=== PATIENT | female | born 1950 | race Caucasian/White ===

== ENCOUNTER 2020-04-12 19:14 | Emergency (ER) | payer MEDICARE, SELFPAY ==
[2020-04-12 19:20] VITALS: BP 254/100; PULSE 87; RESP 18; TEMP 36.2; O2SAT 100
--- NOTE | 2020-04-12 19:25 | ECG_ITS ---
Measurements Intervals [place] Rate: 71 P: 5 LA: 188 QRS: 5 QRSD: 85 T: 9 QT: 408 QTc: 445 Interpretive Statements SINUS RHYTHM LEFT VENTRICULAR HYPERTROPHY AND ST-T CHANGE BASELINE ARTIFACT- I, III, AVR, AVF, V1 BORDERLINE ECG Electronically Signed On 04-12-2020 21:00:50 LEADER WRITER by Trey Witt D.O.
[2020-04-12 19:35] LABS: Basophils Absolute Auto 0.1 K/mm3 (0.0-0.1); Basophils Percent Auto 1.4 % (0.2-1.2); Eosinophils Absolute Auto 0.5 K/mm3 (0-0.3); Eosinophils Percent Auto 4.5 % (0-4.4); Hematocrit 41.1 % (37.0-47.0); Hemoglobin 14.4 g/dL (12.0-15.0); Immature Granulocyte Absolute 0.03 K/mm3 (0.00-0.031); Immature Granulocyte Percent A 0.3 % (0-0.5); Lymphocytes Absolute Auto 2.72 K/mm3 (0.9-3.2); Lymphocytes Percent Auto 26.4 % (18.3-44.2); Mean Corpuscular Hemoglobin 29.7 pg (26-34); Mean Corpuscular Volume 84.7 fl (80-100); Monocytes Absolute Auto 0.8 K/mm3 (0.1-0.6); Monocytes Percent Auto 7.6 % (2.6-8.5); Neutrophils Absolute Auto 6.2 K/mm3 (1.3-6.7); Neutrophils Percent Auto 59.8 % (45.5-73.1); Platelet Count Result 371 k/mm3 (150-375); Red Blood Count 4.85 M/mm3 (4.2-5.4); Red Cell Distribution Width 12.7 % (11.5-14.5); White Blood Count 10.3 K/mm3 (4.5-10.0)
[2020-04-12 19:45] LABS: Alanine Aminotransferase 12 U/L (4-35); Albumin Level 4.5 g/dL (3.5-5.1); Alkaline Phosphatase 97 U/L (38-126); Anion Gap 6 mmol/L (8-16); Aspartate Amino Transferase 27 U/L (14-36); Bilirubin,Total 0.5 mg/dL (0.2-1.3); Blood Urea Nitrogen 8 mg/dL (7-17); Calcium 9.7 mg/dL (8.4-10.2); Carbon Dioxide 32 mmol/L (22-30); Chloride 97 mmol/L (98-107); Estimated CRCL calculation 45 ml/min; Estimated Glomerular Filt Rate > 60; Glucose 121 mg/dL (65-105); Potassium 3.6 mmol/L (3.4-5.0); Sodium 135 mmol/L (137-145)
[2020-04-12 20:26] VITALS: BP 240/105; PULSE 72; RESP 16; O2SAT 100
[2020-04-12] MEDS: SODIUM CHLORIDE 0.9% IV 1,000 ML 999 ML IV CONT (20:49)
[2020-04-12] MEDS: LORazepam INJ (*CRX) 2 MG/ML VIAL 1 MG IV PUSH (20:50)
[2020-04-12] MEDS: diphenhydrAMINE HCl INJ 50 MG/ML VIAL IV PUSH (20:50)
[2020-04-12 20:51] VITALS: BP 222/97; PULSE 81; RESP 22; O2SAT 99
[2020-04-12] MEDS: PROCHLORPERAZINE EDISYLATE 10 MG/2 ML VIAL IV PUSH (20:51)
--- NOTE | 2020-04-12 21:23 | ED.GENADULT ---
HPI - General Adult General Chief complaint: Headache Stated complaint: headaches with high blood pressure Time Seen by Provider: 04/12/20 20:23 History of Present Illness HPI narrative: Patient is a 69-year-old female who presents the emergency department with chief complaint of headache. Patient reports she has history of migraines and usually gets hypertension afterwards. Patient states that she started developing headache this morning and then is noticed that her blood pressures been high and the patient reports having nausea and vomiting with this as well. The patient also reports has been more anxious than normal coping with the fact that her mother has recently . Review of Systems Review of Systems: Narrative: A 10 system review of systems was completed on the patient and is negative except for what is stated in the HPI. Nursing and ancillary documentation was reviewed. PMFSH Social History Social History Gender identity (if verbalized by the patient): Female Comments Past medical history significant for migraines and hypertension Social history patient denies illicit drug use Exam Narrative: Exam Narrative: GENERAL: Well-appearing, well-nourished, and in no acute distress. HEAD: Normocephalic, atraumatic. EYES: PERRLA and EOMI. ENT: Nares clear, no rhinorrhea or epistaxis. Mucous membranes moist. NECK: Supple. CHEST: Clear to auscultation. No respiratory distress. HEART: Regular rate and rhythm. No murmur heard. Normal peripheral pulses. ABDOMEN: Soft, nontender, nondistended, normal active bowel sounds. EXTREMITIES: Normal range of motion. No edema. SKIN: Warm, dry, no rash. NEURO: No focal deficits. Alert and oriented x3. PSYCH: Normal mood and affect. Course Vital Signs Vital signs: Vital Signs Temperature 36.2 C L 04/12/20 19:20 Pulse Rate 87 04/12/20 19:20 Respiratory Rate 18 04/12/20 19:20 Blood Pressure 254/100 H 04/12/20 19:20 Pulse Oximetry 100 04/12/20 19:20 Temperature 36.2 C L 04/12/20 19:20 Pulse Rate 68 04/12/20 22:39 Respiratory Rate 16 04/12/20 22:39 Blood Pressure 116/57 L 04/12/20 22:39 Pulse Oximetry 98 04/12/20 22:39 Medical Decision Making Vital Signs Vital Signs: Vital Signs Temperature 36.2 C L 04/12/20 19:20 Pulse Rate 87 02/12/21 19:20 Respiratory Rate 18 04/12/20 19:20 Blood Pressure 254/100 H 04/12/20 19:20 Pulse Oximetry 100 04/12/20 19:20 Temperature 36.2 C L 04/12/20 19:20 Pulse Rate 68 04/12/20 22:39 Respiratory Rate 16 04/12/20 22:39 Blood Pressure 116/57 L 04/12/20 22:39 Pulse Oximetry 98 04/12/20 22:39 Lab Data Result diagrams: 04/12/20 19:27 04/12/20 19:27 Labs: Lab Results 04/12/20 04/12/20 Range/Units 19:27 19:27 WBC 10.3 H (4.5-10.0) K/mm3 RBC 4.85 (4.2-5.4) M/mm3 Hgb 14.4 (12.0-15.0) g/dL Hct 41.1 (37.0-47.0) % MCV 84.7 (80-100) fl MCH 29.7 (26-34) pg MCHC 35.0 (32-36) g/dl RDW 12.7 (11.5-14.5) % Plt Count 371 (150-375) k/mm3 MPV 9.0 (7.4-10.4) fl Immature Gran % (Auto) 0.3 (0-0.5) % Neut % (Auto) 59.8 (45.5-73.1) % Lymph % (Auto) 26.4 (18.3-44.2) % [place] % (Auto) 7.6 (2.6-8.5) % Eos % (Auto) 4.5 H (0-4.4) % Baso % (Auto) 1.4 H (0.2-1.2) % Lymph # (Auto) 2.72 (0.9-3.2) K/mm3 [place] # (Auto) 0.8 H (0.1-0.6) K/mm3 Eos # (Auto) 0.5 H (0-0.3) K/mm3 Baso # (Auto) 0.1 (0.0-0.1) K/mm3 Abs Immat Gran (auto) 0.03 (0.00-0.031) K/mm3 Absolute Neuts (auto) 6.2 (1.3-6.7) K/mm3 Absolute Nucleated RBC 0.0 (0.0-0.012) K/mm3 Nucleated RBC % 0.0 (0.0-0.2) % Sodium 135 L (137-145) mmol/L Potassium 3.6 (3.4-5.0) mmol/L Chloride 97 L (98-107) mmol/L Carbon Dioxide 32 H (22-30) mmol/L Anion Gap 6 L (8-16) mmol/L BUN 8 (7-17) mg/dL Creatinine 0.80 (0.7-1.0) mg/dL Estim Creat Clear Calc 45 ml/min Estimated GFR > 60 (59 - ) Glucos
[2020-04-12 21:57] VITALS: BP 120/73; PULSE 74; RESP 18; O2SAT 98
[2020-04-12] MEDS: KETOROLAC 15 MG/ML VIAL (*BKC) IV PUSH (22:23)
[2020-04-12 22:39] VITALS: BP 116/57; PULSE 68; RESP 16; O2SAT 98
== END 2020-04-12 23:11 | disposition home or self-care (01) ==
PROVIDERS: Emergency Medicine; Emergency Provider Emergency Medicine; PCP Family Medicine
DX: G43.909 Migraine, unspecified, not intractable, without status migrainosus (principal); I10 Essential (primary) hypertension; I51.7 Cardiomegaly
CPT/HCPCS: 36415; 80053; 85025; 93005; 96361; 96374; 96375; 99284; J0780; J1200; J1885; J2060; J7030

== ENCOUNTER 2023-02-09 11:30 | Emergency (ER) | payer MEDICARE, SELFPAY ==
--- NOTE | ~2023-02-09 | XR_ITS ---
EXAMINATION: XR chest 2V DATE: 02/09/2023 11:47 INDICATION: Left-sided chest pain TECHNIQUE: PA and lateral views of the chest are obtained. COMPARISON: None available FINDINGS: The lungs are free of acute opacities. No pleural effusion or pneumothorax. The cardiomedia stinal silhouette is normal. There is mild thoracic spondylosis. Surgical clips in the right upper qu adrant are likely from prior cholecystectomy. IMPRESSION: 1. No acute cardiopulmonary abnormality. Reviewed, dictated and finalized at location L. ENT ACCOUNT LIAISON
--- NOTE | 2023-02-09 11:31 | ECG_ITS ---
Measurements Intervals [place] Rate: 73 P: 47 DC: 169 QRS: 37 QRSD: 76 T: 22 QT: 374 QTc: 413 Interpretive Statements SINUS RHYTHM NONSPECIFIC ST ABNORMALITY ABNORMAL ECG COMPARED TO ECG 04/12/2020 20:42:32 NO SIGNIFICANT CHANGES Electronically Signed On 02-10-2023 10:27:18 GRINDER HAND by Elvis Sanchez M.D.
[2023-02-09 11:36] VITALS: BP 226/100; PULSE 76; RESP 16; TEMP 36.3; O2SAT 100
[2023-02-09 12:02] LABS: Basophils Absolute Auto 0.1 K/mm3 (0.0-0.1); Basophils Percent Auto 1.7 % (0.2-1.2); Eosinophils Absolute Auto 0.2 K/mm3 (0-0.3); Eosinophils Percent Auto 2.6 % (0-4.4); Hematocrit 40.8 % (37.0-47.0); Hemoglobin 13.9 g/dL (12.0-15.0); Immature Granulocyte Absolute 0.01 K/mm3 (0.00-0.031); Immature Granulocyte Percent A 0.1 % (0-0.5); Lymphocytes Absolute Auto 1.33 K/mm3 (0.9-3.2); Lymphocytes Percent Auto 19.4 % (18.3-44.2); Mean Corpuscular HGB Conc 34.1 g/dl (32-36); Mean Corpuscular Hemoglobin 29.8 pg (26-34); Mean Corpuscular Volume 87.4 fl (80-100); Monocytes Absolute Auto 0.6 K/mm3 (0.1-0.6); Monocytes Percent Auto 8.2 % (2.6-8.5); Neutrophils Absolute Auto 4.7 K/mm3 (1.3-6.7); Platelet Count Result 341 k/mm3 (150-375); Red Blood Count 4.67 M/mm3 (4.2-5.4); Red Cell Distribution Width 13.1 % (11.5-14.5); White Blood Count 6.9 K/mm3 (4.5-10.0)
[2023-02-09 12:11] LABS: Alanine Aminotransferase 43 U/L (6-35); Albumin Level 4.5 g/dL (3.5-5.1); Alkaline Phosphatase 101 U/L (38-126); Anion Gap 5 mmol/L (8-16); Aspartate Amino Transferase 51 U/L (14-36); Bilirubin,Total 0.8 mg/dL (0.2-1.3); Blood Urea Nitrogen 6 mg/dL (7-17); Calcium 9.3 mg/dL (8.4-10.2); Carbon Dioxide 32 mmol/L (22-30); Chloride 99 mmol/L (98-107); Estimated CRCL calculation 39 ml/min; Estimated Glomerular Filt Rate > 60; Glucose 109 mg/dL (65-110); Lipase 63 U/L (23-300); Potassium 4.2 mmol/L (3.4-5.0); Sodium 136 mmol/L (137-145)
[2023-02-09 12:12] LABS: Partial Thromboplastin Time 31.8 SECONDS (22.3-36.8); Prothrombin Time 13.4 Seconds (11.1-14.7)
[2023-02-09 12:22] LABS: Troponin I < 0.012 ng/mL (0.000-0.034)
--- NOTE | 2023-02-09 14:04 | ED.CHESTPAIN ---
HPI - Chest Pain General Chief Complaint: Chest Pain <GALLITO Wheat Last Filed: 02/09/23 17:19> Stated Complaint: left arm pain <GALLITO Wheat Last Filed: 02/09/23 17:19> Time Seen by Provider: 02/09/23 15:45 <GALLITO Wheat Last Filed: 02/09/23 17:19> Source: patient <GALLITO Wheat Last Filed: 02/09/23 17:19> Mode of arrival: ambulatory <GALLITO Wheat Last Filed: 02/09/23 17:19> Limitations: no limitations <GALLITO Wheat Last Filed: 02/09/23 17:19> History of Present Illness HPI narrative: This is a 72 year old female that presents to the ER for an episode of chest pain last night. Reports a substernal chest pain that was burning in nature. This resolved without intervention. Reports she has trouble with her anxiety and would like her doctor to increase her Clonazepam dose because that is what seems to help her the most. Reports her blood pressure was elevated this morning which she believes is due to her anxiety. Recently had a stent placed. She sees cardiology with [facility]. Denies shortness of breath or lower extremity edema. <Nathaly Chamorro PA-C - Last Filed: 02/09/23 17:19> Related Data Home Medications: Home Medications Medication Instructions Recorded Confirmed atenolol 100 mg tablet 100 mg PO DAILY 09/16/21 09/16/21 cholecalciferol (vitamin D3) 25 25 mcg PO DAILY 09/16/21 09/16/21 mcg (1,000 unit) capsule clonazepam 0.25 mg disintegrating 0.25 mg PO DAILY 09/16/21 09/16/21 tablet lansoprazole 30 mg capsule,delayed 30 mg PO DAILY 09/16/21 09/16/21 release (Prevacid) <GALLITO Wheat Last Filed: 02/09/23 17:19> Allergies/Adverse Reactions: Allergies Allergy/AdvReac Type Severity Reaction Status Date / Time No Known Allergies Allergy Verified 02/09/23 13:45 <Nathaly Chamorro PA-C - Last Filed: 02/09/23 17:19> Review of Systems Review of Systems: CONSTITUTIONAL: Denies fever CARDIOVASCULAR: Reports chest pain, palpitations. Denies edema. RESPIRATORY: Denies dyspnea. PSYCHIATRIC: Reports anxiety <Nathaly Chamorro PA-C - Last Filed: 02/09/23 17:19> All systems reviewed & are unremarkable except as noted in HPI and below <Nathaly Chamorro PA-C - Last Filed: 02/09/23 17:19> [facility] Past Medical History Medical History: Medical History (Updated 02/10/23 @ 00:00 by Barber Schwartz) History of anxiety History of hyperlipidemia History of hypertension <GALLITO Wheat Last Filed: 02/09/23 17:19> Family History Family History: Family History (Updated 02/02/23 @ 11:07 by Morenita Rogers RN) Sibling Alcoholism Cancer Hypertension Mother Depression Father Heart disease High cholesterol Grandparent Cerebrovascular accident <Nathaly Chamorro PA-C - Last Filed: 02/09/23 17:19> Social History Social History: Social History Smoking packs per day: 1.5 Smoking cigarettes per day: 30.0 Years smoked: 20 Smoking pack-years: 30.00 Smoking status: Former smoker Alcohol intake: never Substance use: never Gender identity (if verbalized by the patient): Female <Nathaly Chamorro PA-C - Last Filed: 02/09/23 17:19> Exam Narrative: GENERAL: Well-appearing, well-nourished, anxious HEAD: Normocephalic, atraumatic. EYES: EOMI. CHEST: Clear to auscultation. No respiratory distress. No wheezes rales or rhonchi HEART: Regular rate and rhythm. No murmur heard. Normal peripheral pulses. EXTREMITIES: Normal range of motion. No edema. SKIN: Warm, dry, no rash. NEURO: No focal deficits. Alert and oriented x3. PSYCH: Anxious <GALLITO Wheat Last Filed: 02/09/23 17:19> Course Vital Signs Vital signs: Vital Signs Temperature 97.3 F L 02/09/23 11:36 Pulse Rate 76 02/09/23 11:36 Respiratory Rate 16 02/09/23 11:36 Blood Pressu
[2023-02-09 14:07] VITALS: BP 224/117; PULSE 69; RESP 20; O2SAT 98
--- NOTE | 2023-02-09 14:08 | PC.NURSE ---
provider aware of elevated BP
--- NOTE | 2023-02-09 14:36 | ECG_ITS ---
Measurements Intervals [place] Rate: 67 P: 76 CA: 171 QRS: 65 QRSD: 77 T: 65 QT: 394 QTc: 417 Interpretive Statements SINUS RHYTHM MINIMAL VOLTAGE CRITERIA FOR LVH, CONSIDER NORMAL VARIANT [MEETS CRITERIA IN ONE OF: R(aVL), S(V1), R(V5), R(V5/V6)+S(V1)] MINIMAL ST DEPRESSION [0.025+ mV ST DEPRESSION] ABNORMAL ECG COMPARED TO ECG 02/09/2023 11:42:37 NO SIGNIFICANT CHANGES Electronically Signed On 02-10-2023 10:32:25 CONTROLLER OPERATIONS AND HR MANAGER by Elvis Sanchez M.D.
[2023-02-09 15:27] LABS: Troponin I < 0.012 ng/mL (0.000-0.034)
[2023-02-09 15:42] VITALS: BP 230/105; PULSE 65; RESP 17; O2SAT 100
[2023-02-09 15:50] VITALS: BP 210/90; PULSE 66; RESP 14; O2SAT 100
[2023-02-09 16:21] VITALS: BP 172/83; PULSE 60; RESP 20; O2SAT 100
[2023-02-09 16:52] VITALS: BP 174/73; PULSE 60; RESP 14; O2SAT 100
== END 2023-02-09 16:59 | disposition home or self-care (01) ==
PROVIDERS: Emergency Medicine; Emergency Provider Emergency Medicine
DX: R07.89 Other chest pain (principal); F41.9 Anxiety disorder, unspecified; I10 Essential (primary) hypertension; E78.5 Hyperlipidemia, unspecified
CPT/HCPCS: 36415; 71046; 80053; 83690; 84484; 85025; 85610; 85730; 93005; 99284

== ENCOUNTER 2023-02-25 13:30 | Outpatient (RCR) | payer MEDICARE, SELFPAY ==
[2023-02-02 11:49] VITALS: PULSE 66
== END 2023-04-16 09:06 | disposition home or self-care (01) ==
LOC: ANHCPREHAB 13:30
PROVIDERS: PCP Family Medicine; Visit Provider Specialist
DX: Z95.5 Presence of coronary angioplasty implant and graft (principal)
CPT/HCPCS: 93798; J2704

== ENCOUNTER 2023-04-12 06:39 | Outpatient (CLI) | payer OTHER, SELFPAY ==
[2023-04-12 08:11] LABS: Alanine Aminotransferase 59 U/L (6-35); Albumin Level 4.1 g/dL (3.5-5.1); Alkaline Phosphatase 91 U/L (38-126); Aspartate Amino Transferase 59 U/L (14-36); Bilirubin,Total 1.2 mg/dL (0.2-1.3); Cholesterol 146 mg/dL (0-200); HDL Direct 60 mg/dL; Triglycerides 86 mg/dL (<150)
[2023-04-12 08:22] LABS: LDL Cholesterol Direct 71 mg/dL
== END 2023-04-12 06:40 | disposition home or self-care (01) ==
PROVIDERS: PCP Student in an Organized Health Care Education/Training Program; Visit Provider Specialist
DX: E78.2 Mixed hyperlipidemia (principal)
CPT/HCPCS: 36415; 80061; 80076

== ENCOUNTER 2023-04-29 06:34 | Outpatient (CLI) | payer OTHER, SELFPAY ==
[2023-04-29 07:34] LABS: Alanine Aminotransferase 38 U/L (6-35); Albumin Level 4.3 g/dL (3.5-5.1); Alkaline Phosphatase 87 U/L (38-126); Aspartate Amino Transferase 46 U/L (14-36); Bilirubin,Total 1.1 mg/dL (0.2-1.3)
== END 2023-04-29 06:35 | disposition home or self-care (01) ==
PROVIDERS: PCP Clinical Nurse Specialist
DX: R74.8 Abnormal levels of other serum enzymes (principal)
CPT/HCPCS: 36415; 80076

== ENCOUNTER 2023-07-20 17:02 | Emergency (ER) | payer OTHER, SELFPAY ==
[2023-07-20] VITALS (9 sets, daily range): BP systolic 79–144; BP diastolic 43–66; PULSE 46–81; RESP 16–27; TEMP 36.4; O2SAT 98–100
--- NOTE | ~2023-07-20 | XR_ITS ---
EXAMINATION: XR chest 1V portable DATE: 07/20/2023 22:35 INDICATION: Syncope with weakness and wheezing post tooth removal TECHNIQUE: frontal view of the chest was obtained. COMPARISON: Chest radiograph dated 02/09/2023 FINDINGS: The lungs remain clear with no focal airspace opacities, pulmonary edema, pleural effusion or pneumot horax. The cardiomediastinal silhouette is normal. Likely cholecystectomy clips in right upper quadra nt. Mild thoracic spondylosis. Peripheral IV at the left antecubital fossa. IMPRESSION: 1. No acute cardiopulmonary disease. Reviewed, dictated and finalized at location A.
[2023-07-20 19:46] LABS: Basophils Absolute Auto 0.1 K/mm3 (0.0-0.1); Basophils Percent Auto 0.8 % (0.2-1.2); Eosinophils Percent Auto 0.1 % (0-4.4); Hematocrit 36.3 % (37.0-47.0); Hemoglobin 12.6 g/dL (12.0-15.0); Immature Granulocyte Absolute 0.05 K/mm3 (0.00-0.031); Immature Granulocyte Percent A 0.3 % (0-0.5); Lymphocytes Absolute Auto 0.92 K/mm3 (0.9-3.2); Lymphocytes Percent Auto 6.4 % (18.3-44.2); Mean Corpuscular HGB Conc 34.7 g/dl (32-36); Mean Corpuscular Hemoglobin 29.9 pg (26-34); Mean Corpuscular Volume 86.2 fl (80-100); Mean Platelet Volume 9.1 fl (7.4-10.4); Monocytes Absolute Auto 0.6 K/mm3 (0.1-0.6); Monocytes Percent Auto 3.8 % (2.6-8.5); Neutrophils Absolute Auto 12.8 K/mm3 (1.3-6.7); Neutrophils Percent Auto 88.6 % (45.5-73.1); Platelet Count Result 334 k/mm3 (150-375); Red Blood Count 4.21 M/mm3 (4.2-5.4); Red Cell Distribution Width 12.9 % (11.5-14.5); White Blood Count 14.4 K/mm3 (4.5-10.0)
[2023-07-20 19:55] LABS: Alanine Aminotransferase 17 U/L (6-35); Albumin Level 4.6 g/dL (3.5-5.1); Alkaline Phosphatase 87 U/L (38-126); Anion Gap 8 mmol/L (4-12); Aspartate Amino Transferase 32 U/L (14-36); Blood Urea Nitrogen 12 mg/dL (7-17); Calcium 9.3 mg/dL (8.4-10.2); Carbon Dioxide 26 mmol/L (22-30); Chloride 97 mmol/L (98-107); Estimated CRCL calculation 35 ml/min; Estimated Glomerular Filt Rate > 60; Glucose 122 mg/dL (65-110); Potassium 4.1 mmol/L (3.4-5.0); Sodium 131 mmol/L (137-145)
[2023-07-20 19:59] LABS: INR 1.1; Prothrombin Time 14.4 Seconds (11.1-14.7)
[2023-07-20 20:00] LABS: Partial Thromboplastin Time 29.1 Seconds (22.3-36.8)
--- NOTE | 2023-07-20 21:27 | PC.NURSE ---
Addendum entered by Damaris Garcia RN 07/20/23 22:25: Once found, this RN performed sternal rub with no response. Checked for pulse, none felt by this RN. Attempted to start CPR and pt arousable after first compression. Original Note: This RN alerted by pt family of assistance needed. Pt found supine in bathroom, eyes open, with snoring respirations, and loss of bladder. EDP Zych in triage at the time, notified, and taken to room 22.
--- NOTE | 2023-07-20 21:29 | ECG_ITS ---
SEE SCANNED COPY FOR CONFIRMED REPORT MTDD
[2023-07-20] MEDS: SODIUM CHLORIDE 0.9% IV 1,000 ML 999 ML IV CONT ×2 (21:50→23:02)
[2023-07-20 21:51] LABS: Magnesium 1.8 mg/dL (1.6-2.3)
[2023-07-20] MEDS: CELLULOSE OXIDIZED 2 x 14 INCH 1 PKT XX (21:59)
[2023-07-20 22:02] LABS: Troponin I < 0.012 ng/mL (0.000-0.034)
[2023-07-20] MEDS: ONDANSETRON INJ 4 MG/2 ML VIAL IV PUSH (22:48)
--- NOTE | 2023-07-20 22:56 | ED.GENADULT ---
HPI - General Adult General Chief complaint: Weakness Stated complaint: weakness Time Seen by Provider: 07/20/23 21:32 History of Present Illness HPI narrative: Patient is a 72-year-old female who presents to the emergency department this evening complaining of a bleeding tooth socket. Patient states that this morning she had 2 of her teeth extracted. Patient states that since she has not been able to control the bleeding. She has called the dentist office 5 times and they kept on telling her that she is and that the bleeding will eventually stop. Patient finally decided to come to the emergency department as she could not control the bleeding at home. She is on aspirin and Plavix. While the patient was waiting in the emergency department, she did have a syncopal episode in the bathroom. Patient's son is with her and states that she has not had anything to eat or drink all day dealing with her bleeding gums. Patient is denying any chest pain but admits to having nausea stating that she swallowed some blood which is making her stomach upset. She is currently denying any additional symptoms or concerns at this time. Related Data Home Medications Medication Instructions Recorded Confirmed atenolol 100 mg tablet 100 mg PO DAILY 09/16/21 06/18/23 cholecalciferol (vitamin D3) 25 25 mcg PO DAILY 09/16/21 06/18/23 mcg (1,000 unit) capsule aspirin 81 mg tablet,delayed 81 mg PO DAILY 04/20/23 06/18/23 release (Adult Aspirin Regimen) atorvastatin 20 mg tablet (Lipitor) 20 mg PO DAILY 04/20/23 06/18/23 clonazepam 0.25 mg disintegrating 0.5 mg PO DAILY 04/20/23 06/18/23 tablet clopidogrel 75 mg tablet (Plavix) 75 mg PO DAILY 04/20/23 06/18/23 mecobalamin (vitamin B12) 500 mcg mcg PO 04/20/23 06/18/23 chewable tablet Allergies Allergy/AdvReac Type Severity Reaction Status Date / Time clindamycin Allergy Unknown Verified 06/18/23 11:00 clonidine Allergy Unknown Verified 06/18/23 11:00 midazolam [From Versed] Allergy Unknown Verified 06/18/23 11:00 Review of Systems Review of Systems: All systems are reviewed and are negative unless stated otherwise in the HPI. [facility] Past Medical History Medical History History of hyperlipidemia History of hypertension Surgical History Surgical History History of anxiety Hx of cholecystectomy Presence of stent in left circumflex coronary artery Family History Family History Sibling Alcoholism Cancer Hypertension Mother Depression Father Heart disease High cholesterol Grandparent Cerebrovascular accident Social History Social History Social History: caffeine - 1 cup tea daily Smoking packs per day: 1.5 Smoking cigarettes per day: 30.0 Years smoked: 20 Smoking pack-years: 30.00 Smoking status: Former smoker Smoking end date: 03/01/97 Alcohol intake: never Substance use: never Do You Feel Safe in your Home?: Yes Lack of Transportation: No Lack of Food: Sometimes True Current Housing: I Have Housing Concerned About Future Housing: Decline to Answer Difficulty Paying Gas/Electric Bills: YES Difficulty Paying for Meds: No Currently Unemployed: No Education: Associate Degree Difficulty w/ Childcare or Family Care: No Living arrangements: alone Occupation/Education: retired Gender identity (if verbalized by the patient): Female Spiritual care concerns: No Agree to blood products: Yes Exam Narrative: General: Alert, awake, afebrile, pale. HEENT: PERRL, no rhinorrhea, no post nasal drip, oropharynx clear, right upper molar brisk bleeding, . Cardiovascular: Regular rate and rhythm, no murmurs, rubs or gallops, no peripheral edema. Respiratory: Clear to auscultation bilaterally, no tachypnea, no
--- NOTE | 2023-07-20 23:01 | PC.NURSE ---
EDP DR ASHLEY STARK 1000ML IV BOLUS FOR LOW PRESSURES.
[2023-07-21] VITALS: BP 101/49; PULSE 73; RESP 17; O2SAT 100
[2023-07-21] MEDS: SODIUM CHLORIDE 0.9% IV 1,000 ML 100 ML IV CONT (00:13)
--- NOTE | 2023-07-21 00:13 | ECG_ITS ---
SEE SCANNED COPY FOR CONFIRMED REPORT MTDD
[2023-07-21 00:15] VITALS: BP 129/53; PULSE 79; RESP 21; O2SAT 98
[2023-07-21 00:30] VITALS: BP 108/54; PULSE 77; RESP 14; O2SAT 95
[2023-07-21 01:15] VITALS: BP 126/58; PULSE 79; RESP 23; O2SAT 97
[2023-07-21 01:34] VITALS: BP 126/58; PULSE 80; RESP 15; O2SAT 97
== END 2023-07-21 01:36 | disposition home or self-care (01) ==
PROVIDERS: Emergency Provider Emergency Medicine; PCP Clinical Nurse Specialist
DX: R55 Syncope and collapse (principal); K91.840 Postprocedural hemorrhage of a digestive system organ or structure following a digestive system procedure; Z79.82 Long term (current) use of aspirin; E78.5 Hyperlipidemia, unspecified; I10 Essential (primary) hypertension; Z87.891 Personal history of nicotine dependence
CPT/HCPCS: 36415; 71045; 80053; 83735; 84484; 85025; 85610; 85730; 86850; 86900; 86901; 93005; 96361; 96374; 99284; J2405; J7030

== ENCOUNTER 2023-07-23 17:18 | Emergency (ER) | payer OTHER, SELFPAY ==
--- NOTE | ~2023-07-23 | CT_ITS ---
EXAMINATION: CT cervical spine wo con DATE: 07/23/2023 20:05 INDICATION: Fall with head injury TECHNIQUE: Computed tomography (CT) of the cervical spine was performed without intravenous contrast. Automated exposure control and iterative reconstruction technique were employed. The dose-length pro duct was 96.60 mGy-cm. COMPARISON: None FINDINGS: Alignment is normal. Vertebral body heights are normal. No fracture. Severe disc height loss at C5-C6 and moderate to severe disc height loss at C6-C7. There are disc bulges at C2-C3 through C4-C5 and s mall disc osteophyte complex at C5-C6 resulting in multilevel minimal central canal stenosis. Severe uncovertebral osteoarthritis bilaterally at C5-C6 on the left at C6-7 and moderate severity on the ri ght at C6-C7. Severe facet osteoarthritis on the right at C7-T1 and T1-T2 and solid osseous fusion ac ross the right C2-C3 facet joint. Moderate facet osteoarthritis at majority the remaining cervical fa cet joints. Disc intervals to mild neural foraminal stenosis bilaterally at C5-C6 and on the right at C7-T1. Atherosclerotic calcifications at the bilateral carotid bulbs. Cervical soft tissues are othe rwise unremarkable. 2-3 mm right apical nodule. IMPRESSION: 1. Moderate to severe cervical spondylosis. No acute osseous abnormality. 2. Likely benign 2-3 mm right apical nodule. If the patient is low risk for lung cancer, no follow-up is needed. If the patient is high risk (i.e., history of smoking or asbestos or significant radiatio n exposure), optional follow-up chest CT could be considered at 12 months. Reviewed, dictated and finalized at location A. IMPRESSION: 1. Moderate to severe cervical spondylosis. No acute osseous abnormality. 2. Likely benign 2-3 mm right apical nodule. If the patient is low risk for betsey g cancer, no follow-up is needed. If the patient is high risk (i.e., history of smoking or asbestos or significant radiation exposure), optional follow-up anna st CT could be considered at 12 months.
--- NOTE | ~2023-07-23 | CT_ITS ---
EXAMINATION: CT lumbar spine wo con DATE: 07/23/2023 20:05 INDICATION: Low back pain post fall TECHNIQUE: Computed tomography (CT) of the lumbar spine was performed without intravenous contrast. A utomated exposure control and iterative reconstruction technique were employed. The dose-length produ ct was 157.54 mGy-cm. COMPARISON: None FINDINGS: Alignment is normal. Vertebral body heights are normal. There are a few Schmorl's nodes in the lumbar and lower thoracic spine. No acute fracture. Moderate disc height loss at L5-S1. Mild disc height loss at L3-L4. Dependent atelectasis at the bilateral lung bases. 4 mm nonobstructing stone a t the upper pole of the left kidney. Cholecystectomy clips the gallbladder fossa. Fibroid uterus. The following disc levels are specifically discussed: T12-L1: The disc does not extend beyond the endplate margin. There is mild to moderate bilateral face t joint osteoarthritis. There is mild right neural foraminal stenosis. There is no central canal sten osis. L1-L2: Disc is bulging, eccentric to the left. There is mild bilateral facet joint osteoarthritis. Th ere is mild bilateral neural foraminal stenosis. There is mild central canal stenosis. L2-L3: Disc is bulging. There is mild right and moderate left facet joint osteoarthritis. There is mi ld bilateral neural foraminal stenosis. There is mild central canal stenosis. L3-L4: Disc is bulging. There is mild bilateral facet joint osteoarthritis. There is mild bilateral n eural foraminal stenosis. There is mild central canal stenosis. L4-L5: Disc is bulging. There is mild right and moderate left facet joint osteoarthritis. There is mi ld bilateral neural foraminal stenosis. There is mild central canal stenosis. L5-S1: Disc is bulging. There is mild to moderate bilateral facet joint osteoarthritis. There is mini mal bilateral neural foraminal stenosis. There is no central canal stenosis. IMPRESSION: 1. Moderate lumbosacral and mild lumbar spondylosis. No acute osseous abnormality. 2. Fibroid uterus. 3. Nonobstructing 4 mm left renal stone. Reviewed, dictated and finalized at location A. IMPRESSION: 1. Moderate lumbosacral and mild lumbar spondylosis. No acute osseous abnormali ty. 2. Fibroid uterus. 3. Nonobstructing 4 mm left renal stone.
--- NOTE | ~2023-07-23 | XR_ITS ---
EXAMINATION: XR chest 2V DATE: 07/23/2023 19:51 INDICATION: Chest pain TECHNIQUE: frontal and lateral views of the chest were obtained. COMPARISON: Chest radiograph dated 07/20/2023 FINDINGS: The lungs are clear with no focal airspace opacities, pulmonary edema, pleural effusion or pneumothor ax. Arch size is normal. Coronary artery stenting. Likely cholecystectomy clips in the right upper qu adrant. Moderate thoracic spondylosis. IMPRESSION: 1. No acute cardiopulmonary disease. Reviewed, dictated and finalized at location A.
--- NOTE | ~2023-07-23 | CT_ITS ---
EXAMINATION: CT brain wo con DATE: 07/23/2023 20:05 INDICATION: Head injury post fall TECHNIQUE: Computed tomography (CT) of the head was performed without intravenous contrast. Sagittal and coronal reconstructions were performed. The mA was adjusted according to patient size. Iterative reconstruction technique was employed. The dose-length product was 605.33 mGy-cm. COMPARISON: None FINDINGS: No fracture. No acute intracranial hemorrhage, acute infarction or abnormal extra axial fluid collect ion. Symmetric prominence of the sulci consistent with mild age-appropriate diffuse cerebral volume l oss. Ventricles are normal and symmetric. No mass/mass effect. The orbits, paranasal sinuses and mas toid air cells are normal. IMPRESSION: 1. Normal aging brain. No fracture or acute intracranial process. Reviewed, dictated and finalized at location A.
[2023-07-23 17:26] VITALS: BP 218/92; PULSE 87; RESP 20; TEMP 35.6; O2SAT 98
[2023-07-23 18:58] VITALS: BP 209/75; PULSE 80; RESP 16; O2SAT 100
--- NOTE | 2023-07-23 19:07 | ECG_ITS ---
SEE SCANNED COPY FOR CONFIRMED REPORT MTDD
--- NOTE | 2023-07-23 19:09 | ED.FALL ---
HPI - Fall General Chief Complaint: Fall Stated Complaint: fall Time Seen by Provider: 07/23/23 18:43 Source: patient Mode of arrival: ambulatory Limitations: no limitations History of Present Illness HPI Narrative: This is a 72-year-old female that presents to the emergency department for vertigo. Ongoing over the last couple of days. Reports she feels unsteady on her feet. Reports room spinning dizziness. She was seen in the ER a couple of days prior and had a syncopal episode in the bathroom and hit her head. She also reports they initially started chest compressions. She has been having chest discomfort since as well. Also reports low back pain after the fall. Denies vision changes, shortness of breath, vomiting, numbness, weakness. Related Data Home Medications Medication Instructions Recorded Confirmed atenolol 100 mg tablet 100 mg PO DAILY 09/16/21 06/18/23 cholecalciferol (vitamin D3) 25 25 mcg PO DAILY 09/16/21 06/18/23 mcg (1,000 unit) capsule aspirin 81 mg tablet,delayed 81 mg PO DAILY 04/20/23 06/18/23 release (Adult Aspirin Regimen) atorvastatin 20 mg tablet (Lipitor) 20 mg PO DAILY 04/20/23 06/18/23 clonazepam 0.25 mg disintegrating 0.5 mg PO DAILY 04/20/23 06/18/23 tablet clopidogrel 75 mg tablet (Plavix) 75 mg PO DAILY 04/20/23 06/18/23 mecobalamin (vitamin B12) 500 mcg mcg PO 04/20/23 06/18/23 chewable tablet Allergies Allergy/AdvReac Type Severity Reaction Status Date / Time clindamycin Allergy Unknown Verified 07/23/23 17:19 clonidine Allergy Unknown Verified 07/23/23 17:19 iohexol Allergy Hypotension Verified 07/23/23 21:01 [From contrast - CT, X-RAY] midazolam [From Versed] Allergy Unknown Verified 07/23/23 17:19 Review of Systems Review of Systems: CONSTITUTIONAL: Denies fever EYES: Denies visual changes CARDIOVASCULAR: Reports chest pain RESPIRATORY: Denies dyspnea. GASTROINTESTINAL: Denies vomiting MUSCULOSKELETAL: Reports back pain NEUROLOGIC: Denies numbness, or weakness. 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 Family History Family History Sibling Alcoholism Cancer Hypertension Mother Depression Father Heart disease High cholesterol Grandparent Cerebrovascular accident Social History Social History Social History: caffeine - 1 cup tea daily Smoking packs per day: 1.5 Smoking cigarettes per day: 30.0 Years smoked: 20 Smoking pack-years: 30.00 Smoking status: Former smoker Smoking end date: 03/01/97 Alcohol intake: never Substance use: never Do You Feel Safe in your Home?: Yes Lack of Transportation: No Lack of Food: Sometimes True Current Housing: I Have Housing Concerned About Future Housing: Decline to Answer Difficulty Paying Gas/Electric Bills: YES Difficulty Paying for Meds: No Currently Unemployed: No Education: Associate Degree Difficulty w/ Childcare or Family Care: No Living arrangements: alone Occupation/Education: retired Gender identity (if verbalized by the patient): Female Spiritual care concerns: No Agree to blood products: Yes Exam Narrative: GENERAL: Well-appearing, well-nourished, and in no acute distress. HEAD: Normocephalic, atraumatic. EYES: PERRLA and EOMI. ENT: Nares clear, no rhinorrhea or epistaxis. Mucous membranes moist. Oropharynx without tonsillar hypertrophy exudate or other lesions. Bilateral TMs pearly hermosillo non-bulging NECK: Supple. No adenopathy or masses. CHEST: Clear to ausc
[2023-07-23 19:41] LABS: Basophils Absolute Auto 0.1 K/mm3 (0.0-0.1); Basophils Percent Auto 0.9 % (0.2-1.2); Eosinophils Absolute Auto 0.7 K/mm3 (0-0.3); Eosinophils Percent Auto 9.5 % (0-4.4); Hematocrit 26.2 % (37.0-47.0); Immature Granulocyte Absolute 0.01 K/mm3 (0.00-0.031); Immature Granulocyte Percent A 0.1 % (0-0.5); Lymphocytes Absolute Auto 1.19 K/mm3 (0.9-3.2); Lymphocytes Percent Auto 15.8 % (18.3-44.2); Mean Corpuscular HGB Conc 34.4 g/dl (32-36); Mean Corpuscular Hemoglobin 30.3 pg (26-34); Mean Corpuscular Volume 88.2 fl (80-100); Mean Platelet Volume 9.3 fl (7.4-10.4); Monocytes Absolute Auto 0.7 K/mm3 (0.1-0.6); Monocytes Percent Auto 9.6 % (2.6-8.5); Neutrophils Absolute Auto 4.8 K/mm3 (1.3-6.7); Neutrophils Percent Auto 64.1 % (45.5-73.1); Platelet Count Result 231 k/mm3 (150-375); Red Blood Count 2.97 M/mm3 (4.2-5.4); White Blood Count 7.5 K/mm3 (4.5-10.0)
[2023-07-23 19:42] LABS: Appearance Urine Clear (Clear); Bilirubin Urine Negative (Negative); Blood Urine Negative (Negative); Color Urine Yellow (Yellow); Glucose Urine UA Negative (Negative); Ketones Urine Negative (Negative); Leukocyte Esterase Ur Negative LEU/UL (Negative); Nitrate Urine Negative (Negative); Protein Urine Negative (Negative); Urobilinogen Urine 0.2 mg/dL (<2.0); pH Urine 5.5 (5.0-9.0)
[2023-07-23 19:47] LABS: Add Urine Microscopic? NO; Specific Grav Ur 1.003 (1.001-1.035)
[2023-07-23 19:51] LABS: Alanine Aminotransferase 14 U/L (6-35); Albumin Level 3.9 g/dL (3.5-5.1); Alkaline Phosphatase 78 U/L (38-126); Anion Gap 6 mmol/L (4-12); Aspartate Amino Transferase 24 U/L (14-36); Bilirubin,Total 0.5 mg/dL (0.2-1.3); Blood Urea Nitrogen 3 mg/dL (7-17); Calcium 9.2 mg/dL (8.4-10.2); Carbon Dioxide 29 mmol/L (22-30); Chloride 103 mmol/L (98-107); Estimated CRCL calculation 42 ml/min; Estimated Glomerular Filt Rate > 60; Glucose 107 mg/dL (65-110); Potassium 3.2 mmol/L (3.4-5.0); Sodium 138 mmol/L (137-145)
[2023-07-23 20:03] LABS: Troponin I < 0.012 ng/mL (0.000-0.034)
[2023-07-23 20:07] LABS: Magnesium 1.8 mg/dL (1.6-2.3)
[2023-07-23] MEDS: ONDANSETRON INJ 4 MG/2 ML VIAL IV PUSH (20:22)
[2023-07-23] MEDS: MECLIZINE HCL 25 MG TABLET PO (20:26)
[2023-07-23] MEDS: POTASSIUM CHLORIDE 20 MEQ PACKET (FOR LIQUID) 40 MEQ PO (20:41)
[2023-07-23 20:49] VITALS: BP 201/91; PULSE 80; RESP 20; O2SAT 98
[2023-07-23] MEDS: LORazepam INJ (*CRX) 2 MG/ML VIAL 0.5 MG IV PUSH (21:57)
[2023-07-23 22:35] VITALS: BP 186/78; PULSE 81; RESP 14; O2SAT 100
[2023-07-23 23:36] VITALS: BP 160/76; PULSE 77; RESP 19; O2SAT 100
== END 2023-07-23 23:44 | disposition home or self-care (01) ==
PROVIDERS: Emergency Provider Physician Assistant; PCP Clinical Nurse Specialist
DX: R42 Dizziness and giddiness (principal); S39.92XA Unspecified injury of lower back, initial encounter; S09.90XA Unspecified injury of head, initial encounter; D64.9 Anemia, unspecified; R91.1 Solitary pulmonary nodule; I10 Essential (primary) hypertension; E78.5 Hyperlipidemia, unspecified; F41.9 Anxiety disorder, unspecified; Z87.891 Personal history of nicotine dependence; Z79.82 Long term (current) use of aspirin; Z79.02 Long term (current) use of antithrombotics/antiplatelets; Z79.899 Other long term (current) drug therapy; Z90.49 Acquired absence of other specified parts of digestive tract; D25.9 Leiomyoma of uterus, unspecified; N20.0 Calculus of kidney; M47.816 Spondylosis without myelopathy or radiculopathy, lumbar region; M47.812 Spondylosis without myelopathy or radiculopathy, cervical region; W18.39XA Other fall on same level, initial encounter
CPT/HCPCS: 36415; 70450; 71046; 72125; 72131; 80053; 81003; 83735; 84484; 85025; 93005; 96374; 96375; 99284; A9270; J2060; J2405

== ENCOUNTER 2023-08-10 14:52 | Outpatient (CLI) | payer OTHER, SELFPAY ==
[2023-08-10 15:24] LABS: Basophils Absolute Auto 0.1 K/mm3 (0.0-0.1); Eosinophils Absolute Auto 0.6 K/mm3 (0-0.3); Eosinophils Percent Auto 8.2 % (0-4.4); Hematocrit 30.8 % (37.0-47.0); Hemoglobin 10.2 g/dL (12.0-15.0); Immature Granulocyte Absolute 0.02 K/mm3 (0.00-0.031); Immature Granulocyte Percent A 0.3 % (0-0.5); Lymphocytes Absolute Auto 1.34 K/mm3 (0.9-3.2); Lymphocytes Percent Auto 19.6 % (18.3-44.2); Mean Corpuscular HGB Conc 33.1 g/dl (32-36); Mean Corpuscular Hemoglobin 28.7 pg (26-34); Mean Corpuscular Volume 86.8 fl (80-100); Monocytes Absolute Auto 0.6 K/mm3 (0.1-0.6); Monocytes Percent Auto 8.5 % (2.6-8.5); Neutrophils Absolute Auto 4.2 K/mm3 (1.3-6.7); Neutrophils Percent Auto 61.4 % (45.5-73.1); Platelet Count Result 391 k/mm3 (150-375); Red Blood Count 3.55 M/mm3 (4.2-5.4); Red Cell Distribution Width 12.3 % (11.5-14.5); White Blood Count 6.9 K/mm3 (4.5-10.0)
[2023-08-10 15:56] LABS: Anion Gap 5 mmol/L (4-12); Blood Urea Nitrogen 8 mg/dL (7-17); Calcium 9.2 mg/dL (8.4-10.2); Carbon Dioxide 27 mmol/L (22-30); Chloride 102 mmol/L (98-107); Estimated Glomerular Filt Rate > 60; Glucose 101 mg/dL (65-110); Potassium 3.9 mmol/L (3.4-5.0); Sodium 134 mmol/L (137-145)
[2023-08-10 16:08] LABS: Iron 30 ug/dL (37-170)
[2023-08-10 16:17] LABS: Percent Iron Saturation 8 % (20-50)
[2023-08-10 16:45] LABS: Ferritin 7.91 ng/mL (11.1-264)
== END 2023-08-10 14:53 | disposition home or self-care (01) ==
PROVIDERS: PCP Clinical Nurse Specialist; Visit Provider Clinical Nurse Specialist
DX: D64.9 Anemia, unspecified (principal); Z86.79 Personal history of other diseases of the circulatory system; R74.8 Abnormal levels of other serum enzymes
CPT/HCPCS: 36415; 80048; 82607; 82728; 83540; 83550; 85025

== ENCOUNTER 2023-09-23 08:54 | Outpatient (CLI) | payer OTHER, SELFPAY ==
[2023-09-23 10:05] LABS: Basophils Absolute Auto 0.1 K/mm3 (0.0-0.1); Eosinophils Absolute Auto 0.4 K/mm3 (0-0.3); Eosinophils Percent Auto 5.8 % (0-4.4); Hematocrit 34.7 % (37.0-47.0); Immature Granulocyte Absolute 0.01 K/mm3 (0.00-0.031); Immature Granulocyte Percent A 0.2 % (0-0.5); Lymphocytes Absolute Auto 1.45 K/mm3 (0.9-3.2); Lymphocytes Percent Auto 22.3 % (18.3-44.2); Mean Corpuscular HGB Conc 31.7 g/dl (32-36); Mean Corpuscular Hemoglobin 26.3 pg (26-34); Mean Platelet Volume 9.9 fl (7.4-10.4); Monocytes Absolute Auto 0.7 K/mm3 (0.1-0.6); Monocytes Percent Auto 10.5 % (2.6-8.5); Neutrophils Absolute Auto 3.9 K/mm3 (1.3-6.7); Neutrophils Percent Auto 59.2 % (45.5-73.1); Platelet Count Result 336 k/mm3 (150-375); Red Blood Count 4.18 M/mm3 (4.2-5.4); Red Cell Distribution Width 12.8 % (11.5-14.5); White Blood Count 6.5 K/mm3 (4.5-10.0)
[2023-09-23 10:40] LABS: Iron 51 ug/dL (37-170)
[2023-09-23 10:50] LABS: Percent Iron Saturation 12 % (20-50)
[2023-09-23 11:16] LABS: Ferritin 5.97 ng/mL (11.1-264)
== END 2023-09-23 08:55 | disposition home or self-care (01) ==
LOC: ANHLAB 08:56
PROVIDERS: PCP Clinical Nurse Specialist; Visit Provider Clinical Nurse Specialist
DX: D64.9 Anemia, unspecified (principal)
CPT/HCPCS: 36415; 82728; 83540; 83550; 85025

== ENCOUNTER 2023-10-08 12:42 | Outpatient (CLI) | payer OTHER, SELFPAY ==
[2023-10-08 13:01] LABS: Basophils Absolute Auto 0.2 K/mm3 (0.0-0.1); Basophils Percent Auto 2.4 % (0.2-1.2); Eosinophils Absolute Auto 0.4 K/mm3 (0-0.3); Eosinophils Percent Auto 5.8 % (0-4.4); Hematocrit 34.7 % (37.0-47.0); Hemoglobin 11.1 g/dL (12.0-15.0); Immature Granulocyte Absolute 0.01 K/mm3 (0.00-0.031); Immature Granulocyte Percent A 0.2 % (0-0.5); Lymphocytes Absolute Auto 1.45 K/mm3 (0.9-3.2); Lymphocytes Percent Auto 23.3 % (18.3-44.2); Mean Corpuscular Hemoglobin 26.1 pg (26-34); Mean Corpuscular Volume 81.6 fl (80-100); Mean Platelet Volume 8.8 fl (7.4-10.4); Monocytes Absolute Auto 0.6 K/mm3 (0.1-0.6); Neutrophils Absolute Auto 3.6 K/mm3 (1.3-6.7); Neutrophils Percent Auto 58.3 % (45.5-73.1); Platelet Count Result 280 k/mm3 (150-375); Red Blood Count 4.25 M/mm3 (4.2-5.4); Red Cell Distribution Width 13.4 % (11.5-14.5); White Blood Count 6.2 K/mm3 (4.5-10.0)
[2023-10-08 21:32] LABS: Alanine Aminotransferase 13 U/L (6-35); Albumin Level 4.4 g/dL (3.5-5.1); Alkaline Phosphatase 82 U/L (38-126); Anion Gap 11 mmol/L (4-12); Aspartate Amino Transferase 28 U/L (14-36); Bilirubin,Total 0.3 mg/dL (0.2-1.3); Blood Urea Nitrogen 8 mg/dL (7-17); Calcium 9.2 mg/dL (8.4-10.2); Carbon Dioxide 28 mmol/L (22-30); Chloride 97 mmol/L (98-107); Estimated Glomerular Filt Rate > 60; Glucose 83 mg/dL (65-110); Lactate Dehydrogenase 154 U/L (120-246); Potassium 4.2 mmol/L (3.4-5.0); Sodium 136 mmol/L (137-145)
[2023-10-08 22:37] LABS: Folic Acid 11.5 ng/mL (2.76->20)
[2023-10-09 00:10] LABS: Iron 162 ug/dL (37-170); Percent Iron Saturation 34 % (20-50)
[2023-10-09 00:26] LABS: Ferritin 6.31 ng/mL (11.1-264)
[2023-10-12 16:07] LABS: Methylmalonic Acid 135 nmol/L (69-390)
[2023-10-13 12:34] LABS: Soluble Transferrin Receptor 1.52 mg/L (0.76-1.76)
== END 2023-10-08 12:43 | disposition home or self-care (01) ==
LOC: ANHLAB 12:43
PROVIDERS: Nurse Practitioner Family; PCP Clinical Nurse Specialist; Visit Provider Internal Medicine Hematology & Oncology
DX: D50.0 Iron deficiency anemia secondary to blood loss (chronic) (principal)
CPT/HCPCS: 36415; 80053; 82607; 82728; 82746; 83540; 83550; 83615; 83921; 84238; 85025

== ENCOUNTER 2023-10-28 14:15 | Outpatient (CLI) | payer OTHER, SELFPAY ==
[2023-10-28 19:17] LABS: Basophils Absolute Auto 0.1 K/mm3 (0.0-0.1); Basophils Percent Auto 2.3 % (0.2-1.2); Eosinophils Absolute Auto 0.3 K/mm3 (0-0.3); Eosinophils Percent Auto 5.9 % (0-4.4); Hematocrit 35.8 % (37.0-47.0); Hemoglobin 11.5 g/dL (12.0-15.0); Immature Granulocyte Absolute 0.01 K/mm3 (0.00-0.031); Immature Granulocyte Percent A 0.2 % (0-0.5); Lymphocytes Absolute Auto 1.46 K/mm3 (0.9-3.2); Lymphocytes Percent Auto 26.1 % (18.3-44.2); Mean Corpuscular HGB Conc 32.1 g/dl (32-36); Mean Corpuscular Hemoglobin 26.6 pg (26-34); Mean Corpuscular Volume 82.7 fl (80-100); Mean Platelet Volume 10.2 fl (7.4-10.4); Monocytes Absolute Auto 0.6 K/mm3 (0.1-0.6); Monocytes Percent Auto 9.8 % (2.6-8.5); Neutrophils Absolute Auto 3.1 K/mm3 (1.3-6.7); Neutrophils Percent Auto 55.7 % (45.5-73.1); Platelet Count Result 299 k/mm3 (150-375); Red Blood Count 4.33 M/mm3 (4.2-5.4); Red Cell Distribution Width 14.6 % (11.5-14.5); White Blood Count 5.6 K/mm3 (4.5-10.0)
[2023-10-28 19:36] LABS: Alanine Aminotransferase 12 U/L (6-35); Albumin Level 4.1 g/dL (3.5-5.1); Alkaline Phosphatase 91 U/L (38-126); Anion Gap 8 mmol/L (4-12); Aspartate Amino Transferase 40 U/L (14-36); Bilirubin,Total 0.3 mg/dL (0.2-1.3); Blood Urea Nitrogen 9 mg/dL (7-17); Calcium 9.2 mg/dL (8.4-10.2); Carbon Dioxide 31 mmol/L (22-30); Chloride 96 mmol/L (98-107); Estimated Glomerular Filt Rate > 60; Glucose 105 mg/dL (65-110); Potassium 4.4 mmol/L (3.4-5.0); Sodium 135 mmol/L (137-145)
== END 2023-10-28 14:16 | disposition home or self-care (01) ==
LOC: ANHGOSHLAB 14:16
PROVIDERS: PCP Clinical Nurse Specialist; Visit Provider Clinical Nurse Specialist
DX: F41.9 Anxiety disorder, unspecified (principal); D50.9 Iron deficiency anemia, unspecified
CPT/HCPCS: 36415; 80053; 84443; 85025

== ENCOUNTER 2024-01-13 11:02 | Outpatient (CLI) | payer OTHER, SELFPAY ==
[2024-01-13 11:18] LABS: Basophils Absolute Auto 0.1 K/mm3 (0.0-0.1); Basophils Percent Auto 2.1 % (0.2-1.2); Eosinophils Absolute Auto 0.2 K/mm3 (0-0.3); Eosinophils Percent Auto 3.5 % (0-4.4); Hematocrit 38.8 % (37.0-47.0); Hemoglobin 12.9 g/dL (12.0-15.0); Immature Granulocyte Absolute 0.02 K/mm3 (0.00-0.031); Immature Granulocyte Percent A 0.3 % (0-0.5); Lymphocytes Absolute Auto 1.28 K/mm3 (0.9-3.2); Lymphocytes Percent Auto 20.4 % (18.3-44.2); Mean Corpuscular HGB Conc 33.2 g/dl (32-36); Mean Corpuscular Hemoglobin 27.9 pg (26-34); Monocytes Absolute Auto 0.7 K/mm3 (0.1-0.6); Neutrophils Absolute Auto 3.9 K/mm3 (1.3-6.7); Neutrophils Percent Auto 62.7 % (45.5-73.1); Platelet Count Result 298 k/mm3 (150-375); Red Blood Count 4.62 M/mm3 (4.2-5.4); White Blood Count 6.3 K/mm3 (4.5-10.0)
[2024-01-13 13:03] LABS: Alanine Aminotransferase 14 U/L (6-35); Albumin Level 4.3 g/dL (3.5-5.1); Alkaline Phosphatase 89 U/L (38-126); Anion Gap 8 mmol/L (4-12); Aspartate Amino Transferase 29 U/L (14-36); Bilirubin,Total 0.6 mg/dL (0.2-1.3); Blood Urea Nitrogen 7 mg/dL (7-17); Calcium 9.6 mg/dL (8.4-10.2); Carbon Dioxide 30 mmol/L (22-30); Chloride 98 mmol/L (98-107); Estimated Glomerular Filt Rate > 60; Glucose 106 mg/dL (65-110); Potassium 4.3 mmol/L (3.4-5.0); Sodium 136 mmol/L (137-145)
[2024-01-13 14:09] LABS: Folic Acid 14.3 ng/mL (2.76->20)
[2024-01-13 16:33] LABS: Iron 125 ug/dL (37-170)
[2024-01-13 16:44] LABS: Percent Iron Saturation 32 % (20-50)
[2024-01-13 17:10] LABS: Ferritin 8.58 ng/mL (11.1-264)
== END 2024-01-13 11:03 | disposition home or self-care (01) ==
PROVIDERS: PCP Clinical Nurse Specialist; Visit Provider Internal Medicine Hematology & Oncology
DX: D50.0 Iron deficiency anemia secondary to blood loss (chronic) (principal)
CPT/HCPCS: 36415; 80053; 82607; 82728; 82746; 83540; 83550; 85025

== ENCOUNTER 2024-02-21 13:41 | Outpatient (CLI) | payer OTHER, SELFPAY ==
[2024-02-21 13:55] LABS: Basophils Absolute Auto 0.1 K/mm3 (0.0-0.1); Basophils Percent Auto 1.9 % (0.2-1.2); Eosinophils Absolute Auto 0.2 K/mm3 (0-0.3); Eosinophils Percent Auto 2.8 % (0-4.4); Hematocrit 38.9 % (37.0-47.0); Hemoglobin 13.3 g/dL (12.0-15.0); Immature Granulocyte Absolute 0.02 K/mm3 (0.00-0.031); Immature Granulocyte Percent A 0.3 % (0-0.5); Lymphocytes Absolute Auto 1.27 K/mm3 (0.9-3.2); Lymphocytes Percent Auto 18.6 % (18.3-44.2); Mean Corpuscular HGB Conc 34.2 g/dl (32-36); Mean Corpuscular Hemoglobin 29.7 pg (26-34); Mean Corpuscular Volume 86.8 fl (80-100); Mean Platelet Volume 8.7 fl (7.4-10.4); Monocytes Absolute Auto 0.5 K/mm3 (0.1-0.6); Monocytes Percent Auto 7.6 % (2.6-8.5); Neutrophils Absolute Auto 4.7 K/mm3 (1.3-6.7); Neutrophils Percent Auto 68.8 % (45.5-73.1); Platelet Count Result 268 k/mm3 (150-375); Red Blood Count 4.48 M/mm3 (4.2-5.4); Red Cell Distribution Width 13.8 % (11.5-14.5); White Blood Count 6.8 K/mm3 (4.5-10.0)
[2024-02-21 14:26] LABS: Alanine Aminotransferase 14 U/L (6-35); Albumin Level 4.2 g/dL (3.5-5.1); Alkaline Phosphatase 95 U/L (38-126); Anion Gap 3 mmol/L (4-12); Aspartate Amino Transferase 45 U/L (14-36); Bilirubin,Total 0.7 mg/dL (0.2-1.3); Blood Urea Nitrogen 9 mg/dL (7-17); Calcium 9.1 mg/dL (8.4-10.2); Carbon Dioxide 31 mmol/L (22-30); Chloride 100 mmol/L (98-107); Estimated Glomerular Filt Rate > 60; Glucose 137 mg/dL (65-110); Potassium 4.1 mmol/L (3.4-5.0); Sodium 134 mmol/L (137-145)
[2024-02-21 16:06] LABS: Folic Acid 11.6 ng/mL (2.76->20)
== END 2024-02-21 13:42 | disposition home or self-care (01) ==
LOC: ANHLAB 13:42
PROVIDERS: PCP Clinical Nurse Specialist; Visit Provider Internal Medicine Hematology & Oncology
DX: D50.0 Iron deficiency anemia secondary to blood loss (chronic) (principal)
CPT/HCPCS: 36415; 80053; 82607; 82746; 85025

== ENCOUNTER 2024-03-20 12:38 | Outpatient (CLI) | payer OTHER, SELFPAY ==
[2024-03-20 13:03] LABS: Basophils Absolute Auto 0.1 K/mm3 (0.0-0.1); Basophils Percent Auto 1.9 % (0.2-1.2); Eosinophils Absolute Auto 0.2 K/mm3 (0-0.3); Eosinophils Percent Auto 2.8 % (0-4.4); Hematocrit 39.6 % (37.0-47.0); Hemoglobin 13.7 g/dL (12.0-15.0); Immature Granulocyte Absolute 0.02 K/mm3 (0.00-0.031); Immature Granulocyte Percent A 0.3 % (0-0.5); Lymphocytes Absolute Auto 1.43 K/mm3 (0.9-3.2); Lymphocytes Percent Auto 24.6 % (18.3-44.2); Mean Corpuscular HGB Conc 34.6 g/dl (32-36); Mean Corpuscular Hemoglobin 30.3 pg (26-34); Mean Corpuscular Volume 87.6 fl (80-100); Mean Platelet Volume 9.1 fl (7.4-10.4); Monocytes Absolute Auto 0.4 K/mm3 (0.1-0.6); Monocytes Percent Auto 7.4 % (2.6-8.5); Neutrophils Absolute Auto 3.7 K/mm3 (1.3-6.7); Platelet Count Result 277 k/mm3 (150-375); Red Blood Count 4.52 M/mm3 (4.2-5.4); Red Cell Distribution Width 13.2 % (11.5-14.5); White Blood Count 5.8 K/mm3 (4.5-10.0)
[2024-03-20 13:36] LABS: Alanine Aminotransferase 12 U/L (6-35); Albumin Level 4.1 g/dL (3.5-5.1); Alkaline Phosphatase 91 U/L (38-126); Anion Gap 6 mmol/L (4-12); Aspartate Amino Transferase 25 U/L (14-36); Bilirubin,Total 0.6 mg/dL (0.2-1.3); Blood Urea Nitrogen 6 mg/dL (7-17); Calcium 9.5 mg/dL (8.4-10.2); Carbon Dioxide 32 mmol/L (22-30); Chloride 98 mmol/L (98-107); Estimated Glomerular Filt Rate > 60; Glucose 80 mg/dL (65-110); Potassium 4.4 mmol/L (3.4-5.0); Sodium 136 mmol/L (137-145)
[2024-03-20 14:00] LABS: Iron 267 ug/dL (37-170)
[2024-03-20 14:14] LABS: Percent Iron Saturation 78 % (20-50)
[2024-03-21 21:12] LABS: Folic Acid 9.9 ng/mL (2.76->20)
== END 2024-03-20 12:39 | disposition home or self-care (01) ==
LOC: ANHLAB 12:39
PROVIDERS: PCP Clinical Nurse Specialist; Visit Provider Internal Medicine Hematology & Oncology
DX: D50.0 Iron deficiency anemia secondary to blood loss (chronic) (principal)
CPT/HCPCS: 36415; 80053; 82607; 82728; 82746; 83540; 83550; 85025

== ENCOUNTER 2024-08-10 11:00 | Outpatient (CLI) | payer OTHER, SELFPAY ==
--- OUTSIDE RECORDS SUMMARY | 2024-08-10 12:03 | XMS_ITS | Patient Health Record ---
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 Role Phone Nicola Castaneda DO Primary Care Provider Cesar Esquivel Unavailable [phone] SarithaAngela Unavailable [phone] Allergies Allergen (clinical drug ingredient) Drug/Non Drug Allergy documented on EMR Reaction Allergy Type Onset Date Status Midazolam Unknown Drug Allergy Active clonidine cloNIDine Unknown Drug Allergy 07/19/2023 Active Results Component Value Reference Range Notes UDT Reviewed date:09/20/2023 11:10:54 AM Interpretation: Performing Lab: Notes/Report: THC N 0 - 50 ng/ml Cocaine N 0 - 300 ng/ml Amphetamine N 0 - 1000 ng/ml Buprenorphine (BUP) N 0 - 10 ng/ml Secobarbital (Bar) N 0 - 300 ng/ml Oxazepam (BZO) N 0 - 300 ng/ml 4-cgujkfenze-6,8-zisbzwma-4, 3-dipheny lpyrrolidine (EDDP) N 0 - 300 ng/ml Methamphetamine (MET) N 0 - 1000 ng/ml Methylenedioxymethamphetamine (MDMA) N 0 - 500 ng/ml Morphine (MOP 300/[id number]) N 0 - 300 ng/ml Methadone (MTD) N 0 - 300 ng/ml Phencyclidine (PCP) N 0 - 25 ng/ml Nortriptyline (TCA) N 0 - 1000 ng/ml Oxycodone N 0 - 300 ng/ml x N 0 - 300 ng/ml UDT Reviewed date:01/10/2024 02:49:59 PM Interpretation: Performing Lab: Notes/Report: THC n 0 - 50 ng/ml Cocaine n 0 - 300 ng/ml Amphetamine n 0 - 1000 ng/ml Buprenorphine (BUP) n 0 - 10 ng/ml Secobarbital (Bar) n 0 - 300 ng/ml Oxazepam (BZO) n 0 - 300 ng/ml 9-ywfshjfedj-5,7-ffmlvrbt-2, 3-dipheny lpyrrolidine (EDDP) n 0 - 300 ng/ml Methamphetamine (MET) n 0 - 1000 ng/ml Methylenedioxymethamphetamine (MDMA) n 0 - 500 ng/ml Morphine (MOP 300/[id number]) n 0 - 300 ng/ml Methadone (MTD) n 0 - 300 ng/ml Phencyclidine (PCP) n 0 - 25 ng/ml Nortriptyline (TCA) n 0 - 1000 ng/ml Oxycodone n 0 - 300 ng/ml x n 0 - 300 ng/ml UDT Reviewed date:04/10/2024 02:27:13 PM Interpretation: Performing Lab: Notes/Report: THC N 0 - 50 ng/ml Cocaine N 0 - 300 ng/ml Amphetamine N 0 - 1000 ng/ml Buprenorphine (BUP) N 0 - 10 ng/ml Secobarbital (Bar) N 0 - 300 ng/ml Oxazepam (BZO) N 0 - 300 ng/ml 5-txwswgmqqa-1,2-pybccndr-6, 3-dipheny lpyrrolidine (EDDP) N 0 - 300 ng/ml Methamphetamine (MET) N 0 - 1000 ng/ml Methylenedioxymethamphetamine (MDMA) N 0 - 500 ng/ml Morphine (MOP 300/[id number]) N 0 - 300 ng/ml Methadone (MTD) N 0 - 300 ng/ml Phencyclidine (PCP) N 0 - 25 ng/ml Nortriptyline (TCA) N 0 - 1000 ng/ml Oxycodone N 0 - 300 ng/ml x N 0 - 300 ng/ml DRUG MONITOR, BENZO, QN, URI NE ([id number]) Reviewed date:04/11/2024 02:56:47 PM Interpretation: Performing Lab:[facility], [facility] [id number], [id number] Byron Humphrey, Director - [id number] [facility] Notes/Report: FASTING: NO Alphahydroxyalprazolam NEGATIVE <25 ng/mL Alphahydroxymidazolam NEGATIVE <50 ng/mL Alphahydroxytriazolam NEGATIVE <50 ng/mL Aminoclonazepam 74 <25 ng/mL Hydroxyethylflurazepam NEGATIVE <50 ng/mL Lorazepam NEGATIVE <50 ng/mL Nordiazepam NEGATIVE <50 ng/mL Oxazepam NEGATIVE <50 ng/mL Temazepam NEGATIVE <50 ng/mL Benzodiazepines Comments See Benzodiazepines Notes, LDT Notes Notes and Comments This drug testing is for medical treatment only. Analysis was performed as non-forensic testing and these results should be used only by healthcare providers to render diagnosis or treatment, or to monitor progress of medical conditions. Benzodiazepines Notes: Aminoclonazepam detected is consistent with the use of the drug Clonazepam. LDT Notes: Confirmation tests were developed and their analytical performance characteristics have been determined by [employer]. It has not been cleared or approved by the FDA. This assay has been validated pursuant to the CLIA regulations and is used for clinical purposes. Healthcare Providers needing Interpretation assistance, please contact us at [phone] ( ) M-F, 8am to 10pm EST Reason For Referral No Information Medications Medication SIG (Take, Route, Frequency, Duration) Notes Start Date End Date Status Triamcinolone Acetonide 0.1% External 07/19/2023 Active Clobetasol Propionate 0.05 % PLEASE SEE ATTACHED FOR DETAILED DIRECTIONS External for 30 Days Active Atenolol 100 MG TAKE 1 TABLET BY JUAN C TH EVERY DAY Oral for 90 Days Active B-12 250 mcg ORAL 07/19/2023 Active hydrOXYzine HCl 10 MG 1 tablet as needed Orally Once a day for 30 days Active Iron 28 MG 1 tablet Orally Thre e times a Week Active clonazePAM 0.5 MG TAKE 1 TABLET BY JUAN C TH TWICE A DAY for 30 08/03/2024 Active Vitamin D Active Lansoprazole 30 MG TAKE 1 CAPSULE BY MO [facility] EVERY DAY Oral for 90 Days Active Immunizations Vaccine Route Administration Date Status Comme nts Influenza, unspecified formulation Unknown 12/06/2008 A dministered Influenza, unspecified formulation Unknown 03/13/2012 A dministered Influenza, unspecified formulation Unknown 12/08/2013 A dministered Influenza, unspecified formulation Unknown 11/29/2014 A dministered Social History Tobacco Use: Social History Observation Description Date Details (start date - stop date) Never Smoker NA - NA Sex Assigned At : Social History Observation Description Sex Assigned At Female Tobacco Control (Standard) Question Answer Notes Tobacco use: Nonsmoker Problems Problem Type SNOMED Code ICD Code Onset Dates Problem Status W/U Status Risk Notes Problem Moderate recurrent major depression (22843868) Major depressive disorder, recurrent, moderate (F33.1) 07/19/19 Active confirmed Problem [id number] Generalized anxiety disorder (F41.1) 07/19/19 24 Active confirmed Problem Essential hypertension (33186883) Essential (primary) hypertension (I10) 07/19/19 Active confirmed Problem [id number] Memory impairmen t (R41.3) Active confirmed Problem Mixed hyperlipidemia (091955972) Mixed hyperlipidemia (E78.2) 01/15/20 Active confirmed Problem Gastroesophageal reflux disease (298044959) GERD (gastroesophageal reflux disease) (K21.9) 03/26/19 Active confirmed Problem Esophageal stricture (67574073) Esophageal stricture (K22.2) 03/26/19 24 Active confirmed Vital Signs Heart Rate 58 /min 07/07/2024 Height-cm 161.29 cm 07/07/2024 Blood pressure diastolic 83 mm Hg 07/07/2024 Weight-kg 44.45 kg 07/07/2024 Height 63.50 in 07/07/2024 Blood pressure systolic 190 mm Hg 07/07/2024 Weight 98 lbs 07/07/2024 BMI 17.09 kg/m2 07/07/2024 Encounters Encounter Location Date Provider Diagnosis [facility] [place] [address] [place] [address] 08/17/2023 Angela Melara Moderate recurrent m ajor depression F33.1 and Generalized anxiety disorder F41.1 [facility] [place] [address] [place] [address] 08/31/2023 Angela Melara Generalized anxiety disorder F41.1 [facility] [place] [address] [place] [address] 09/15/2023 Angela Melara Generalized anxiety disorder F41.1 [facility] [place] [address] [place] [address] 09/20/2023 Cesar Gloria Major depressive disorder, recurrent, moderate F33.1 ; Generalized anxiety disorder F41.1 and Essential (primary) hypertension I10 [place] [address] [facility] [address] [place] [address] 09/29/2023 Angela Saritha Major depressive disorder, recurrent, moderate F33.1 and Generalized anxiety disorder F41.1 [facility], [place] [address] [facility] [address] [place] [address] 10/12/2023 Angela Saritha Major depressive disorder, recurrent, moderate F33.1 and Generalized anxiety disorder F41.1 [facility], [place] [address] [facility] [address] [place] [address] 10/18/2023 Cesar Gloria Major depressive disorder, recurrent, moderate F33.1 ; Generalized anxiety disorder F41.1 and Essential (primary) hypertension I10 [facility], [place] [address] [facility] [address] [place] [address] 10/26/2023 Angela Saritha Major depressive disorder, recurrent, moderate F33.1 and Generalized anxiety disorder F41.1 [place] [address] [facility] [address] [place] [address] 11/24/2023 Angela Saritha Major depressive disorder, recurrent, moderate F33.1 and Generalized anxiety disorder F41.1 [facility], [place] [address] [facility] [address] [place] [address] 01/10/2024 Cesar Gloria Major depressive disorder, recurrent, moderate F33.1 ; Generalized anxiety disorder F41.1 ; Essential (primary) hypertension I10 and Mixed hyperlipidemia E78.2 [place] [address] [facility] [address] [place] [address] 04/10/2024 Cesar Gloria Major depressive disorder, recurrent, moderate F33.1 ; Esophageal stricture K22.2 ; Generalized anxiety disorder F41.1 ; Essential (primary) hypertension I10 ; Mixed hyperlipidemia E78.2 ; Benign essential HTN I10 and KEYANNA (generalized anxiety disorder) F41.1 [facility], [place] [address] [facility] [address] [place] [address] 07/07/2024 Cesar Gloria Major depressive disorder, recurrent, moderate F33.1 ; Generalized anxiety disorder F41.1 ; Essential (primary) hypertension I10 ; Mixed hyperlipidemia E78.2 ; Negative depression screening Z13.31 ; Benign essential HTN I10 ; Encounter for screening for cardiovascular disorders Z13.6 ; Dietary counseling and surveillance Z71.3 and Memory impairment R41.3 [facility] [address] [place] [address] 09/07/2023 Cesar Castro [facility] [address] [place] [address] 05/01/2024 Cesar Castro Generalized anxiety disorder F41.1 Assessments Encounter Date Diagnosis (ICD Code) Assessment Notes Treatment Notes Treatment Clinical Notes Section Notes 08/17/2023 Generalized anxiety disorder (ICD-10 - F41.1) Client is a 72 y/o single, never female, with no children. She has an associates degree and retired from [employer] in 2019. Client is the 2nd of 4 children and grew up in [place], [place]. She reports she had great parents, they took us to christianity, we had supper together every night. Client's oldest brother of hepititis at age 45. Father 2017 at the age of 92. Mother had paranoid schizophrenia, was on numerous older medications throughout the years. [facility] for ETC. Client also had a very good friend who of cancer I helped her out getting to chemo appointments. The friend in 2017. Client first saw Dr. Castro in this office on 03/29/23. She is currently prescribed Hydroxizine HCL and Klonopin. Current PHQ=13. Client reports she first experienced depression about 2009. She currently reports moderate issues with anhedonia (she has 2 dogs, is able to keep the home clean, spend time with friends), feels down, sleep issues (wakes during the night and sometimes has difficulty falling back to sleep. Gets about 7-8 hours sleep per night), fatigue, and restless. She reports mild issues with eating (east multiple times throughout the day), self esteem issues, and difficulty with concentration. Client denies SI and HI. Current KEYANNA=6 mild. Client reports anxiety has been present since she was in about the 1st grade (mom being hospitalizied). She currently reports mild ahik4wy with feeling on edge, worry, difficulty relaxing, restlessness, irritability, and hypervigilance. 08/17/2023 Moderate recurrent major depression (ICD-10 - F33.1) Client is a 72 y/o single, never female, with no children. She has an associates degree and retired from [employer] in 2019. Client is the 2nd of 4 children and grew up in [place], [place]. She reports she had great parents, they took us to christianity, we had supper together every night. Client's oldest brother of hepititis at age 45. Father 2017 at the age of 92. Mother had paranoid schizophrenia, was on numerous older medications throughout the years. [facility] for [facility]. Client also had a very good friend who of cancer I helped her out getting to chemo appointments. The friend in 2016. Client first saw Dr. Castro in this office on 03/29/23. She is currently prescribed Hydroxizine HCL and Klonopin. Current PHQ=13. Client reports she first experienced depression about 2009. She currently reports moderate issues with anhedonia (she has 2 dogs, is able to keep the home clean, spend time with friends), feels down, sleep issues (wakes during the night and sometimes has difficulty falling back to sleep. Gets about 7-8 hours sleep per night), fatigue, and restless. She reports mild issues with eating (east multiple times throughout the day), self esteem issues, and difficulty with concentration. Client denies SI and HI. Current KEYANNA=6 mild. Client reports anxiety has been present since she was in about the 1st grade (mom being hospitalizied). She currently reports mild uslf1lm with feeling on edge, worry, difficulty relaxing, restlessness, irritability, and hypervigilance. 08/31/2023 Generalized anxiety disorder (ICD-10 - F41.1) Client reports her vetigo has gone away. She talked about her physical health issues. She states she still misses her mother from time to time. Therapist suggested, due to client's gnosticism beliefs, asked client if she has talked to her social security benefits interviewer or utility sales and service manager. She states she does so on a regular basis. She talked about how her siblings took advantage of her after their parents . She reports she does not talk to her siblings because of the things they have done to client. Therapist actively listened to client and utilized a a cognitive intervention and helped her to explore strategies to minimize her anxiety (mindfulness and grounding techniques). 09/15/2023 Generalized anxiety disorder (ICD-10 - F41.1) Client reports her health is slowly improving. She focused on the rash she has almost always and sometimes it gets worse. She states her doctors have not run any allergy tests. She reports the itching from the rash makes it difficult to have a full nights sleep. Client reports she has been invited to her sister's birthday libertarian but does not feel like going due to their strained relationship. She discussed her relationship with her other 3 siblings. She has a good relationship with only one of them. Therapist actively listened to client and utilized a cognitive behavioral intervention to help client explore strategies to minimize her anxiety (reinforced the need to use grounding techniques, mindfulness). 09/20/2023 Major depressive disorder, recurrent, moderate (ICD-10 - F33.1) Post-extraction Hemorrhage and Anemia - Assessment: Patient experienced significant bleeding and anemia following dental extraction while on Plavix and aspirin. Hemoglobin dropped to 7, and hematocrit was half of the normal value. - Plan: Continue monitoring hemoglobin and hematocrit levels. Encourage the patient to follow up with their primary care physician and card sorter regarding the use of Plavix and aspirin. Advise the patient to avoid strenuous activities until blood levels improve, as recommended by their heart doctor. Concussion and Cervical/Thoraci c Spine Bulging Discs - Assessment: Patient sustained a concussion and bulging discs in the C-spine and thoracic spine after falling and hitting their head in the ER bathroom. - Plan: Continue physical therapy at [facility] for the back and neck. Monitor for any worsening of symptoms or new neurological deficits. Encourage the patient to follow up with their primary care physician for further evaluation and management. Vertigo - Assessment: Patient developed vertigo following the head injury. - Plan: Continue therapy for vertigo management. Monitor for any recurrence or worsening of symptoms. Encourage the patient to follow up with their primary care physician for further evaluation and management. Anxiety - Assessment: Patient is currently taking clonazepam 0.5mg twice a day and has stopped taking Buspar. - Plan: Discontinue Buspar. Continue clonazepam 0.5mg twice a day for anxiety management. Schedule a four-week follow-up appointment to assess the patient's progress and adjust the treatment plan as needed. Post-traumatic Headache - Assessment: Patient has been experiencing headaches, possibly related to the concussion, anemia, or head injury. - Plan: Monitor headache frequency and severity. Encourage the patient to follow up with their primary care physician for further evaluation and management. Consider referral to a neurologist if headaches persist or worsen. Coordination of Care - Assessment: Patient has multiple ongoing therapies and follow-up appointments. - Plan: Encourage the patient to maintain open communication with all healthcare providers involved in their care. Offer flexibility in scheduling follow-up appointments to accommodate the patient's therapy schedule. 09/29/2023 Major depressive disorder, recurrent, moderate (ICD-10 - F33.1) 10/12/2023 Major depressive disorder, recurrent, moderate (ICD-10 - F33.1) 10/18/2023 Major depressive disorder, recurrent, moderate (ICD-10 - F33.1) Anemia - Assessment: Patient reports taking a full iron tablet and has a hemoglobin level of 11.9, with normal being 13. - Plan: - Continue iron supplementation (27 mg daily) and follow up with grain trimmer in December. - Patient should avoid strenuous activities until hemoglobin levels normalize. - Treasury Specialist mentioned possibility of iron infusion but will reassess in December. Shortness of Breath - Assessment: Patient reports improvement in shortness of breath. - Plan: - Monitor symptoms and continue to follow up with grain trimmer. - Treasury Specialist estimates it may take three more months for full improvement. Back Pain and Leg Weakness - Assessment: Patient reports persistent back pain and occasional leg weakness, likely due to herniated discs. - Plan: - Follow up with Dr. Pierce for further evaluation and management. - Patient has been attending therapy appointments for back issues. Anxiety - Assessment: Patient reports high anxiety, particularly during tasks and appointments. - Plan: - Continue current medication (0.5 mg twice a day) and maintain weekly therapy sessions with Breana. - Reassess in three months or sooner if symptoms worsen. Hypotension - Assessment: Patient reports low blood pressure readings at home, possibly related to white coat syndrome. Recent reading was 99/50. - Plan: - Monitor blood pressure at home and discuss with primary care provider if consistently low readings persist. Lifestyle Modifications - Assessment: Patient reports improved diet and elimination of caffeine. - Plan: - Encourage continued healthy lifestyle choices and monitor for any changes in symptoms. Past Trauma - Assessment: Patient reports history of heart attack and significant blood loss 14 weeks ago. - Plan: - Continue monitoring recovery progress and address any concerns with primary care provider. Pet Health Concerns - Assessment: Patient reports concern for dog's health, mentioning bleeding issues. - Plan: - Encourage patient to take dog to the first breaker feeder for evaluation and treatment as needed. Mental Health Therapy - Assessment: Patient inquires about the duration of therapy sessions with Breana. - Plan: - Advise patient to discuss session frequency and duration with Breana during their next appointment. - Patient reports seeing Breana weekly and finding the sessions helpful. 10/18/2023 Generalized anxiety disorder (ICD-10 - F41.1) Anemia - Assessment: Patient reports taking a full iron tablet and has a hemoglobin level of 11.9, with normal being 13. - Plan: - Continue iron supplementation (27 mg daily) and follow up with grain trimmer in December. - Patient should avoid strenuous activities until hemoglobin levels normalize. - Treasury Specialist mentioned possibility of iron infusion but will reassess in December. Shortness of Breath - Assessment: Patient reports improvement in shortness of breath. - Plan: - Monitor symptoms and continue to follow up with grain trimmer. - Treasury Specialist estimates it may take three more months for full improvement. Back Pain and Leg Weakness - Assessment: Patient reports persistent back pain and occasional leg weakness, likely due to herniated discs. - Plan: - Follow up with Dr. Pierce for further evaluation and management. - Patient has been attending therapy appointments for back issues. Anxiety - Assessment: Patient reports high anxiety, particularly during tasks and appointments. - Plan: - Continue current medication (0.5 mg twice a day) and maintain weekly therapy sessions with Breana. - Reassess in three months or sooner if symptoms worsen. Hypotension - Assessment: Patient reports low blood pressure readings at home, possibly related to white coat syndrome. Recent reading was 99/50. - Plan: - Monitor blood pressure at home and discuss with primary care provider if consistently low readings persist. Lifestyle Modifications - Assessment: Patient reports improved diet and elimination of caffeine. - Plan: - Encourage continued healthy lifestyle choices and monitor for any changes in symptoms. Past Trauma - Assessment: Patient reports history of heart attack and significant blood loss 14 weeks ago. - Plan: - Continue monitoring recovery progress and address any concerns with primary care provider. Pet Health Concerns - Assessment: Patient reports concern for dog's health, mentioning bleeding issues. - Plan: - Encourage patient to take dog to the first breaker feeder for evaluation and treatment as needed. Mental Health Therapy - Assessment: Patient inquires about the duration of therapy sessions with Breana. - Plan: - Advise patient to discuss session frequency and duration with Breana during their next appointment. - Patient reports seeing Breana weekly and finding the sessions helpful. 10/26/2023 Major depressive disorder, recurrent, moderate (ICD-10 - F33.1) 01/10/2024 Major depressive disorder, recurrent, moderate (ICD-10 - F33.1) Anemia and Recent Blood Loss - Assessment: Patient reports a history of significant blood loss and anemia. Hemoglobin was 7 point something, almost cut in half from 14, and iron levels were also low. Recent grain trimmer appointment scheduled for further evaluation. - Plan: Await results of upcoming grain trimmer appointment and blood work scheduled for Wednesday. Encourage the patient to continue consuming iron-rich foods. Monitor hemoglobin and iron levels closely and adjust treatment as needed. Back Pain and Bulging Discs - Assessment: Patient has a history of bulging discs in the neck (2), T-spine (2), and L1-S1, causing significant pain and discomfort. - Plan: Consider referring the patient to a local physical therapy center, such as [place]. Monitor progress in therapy and reassess the need for further intervention, such as MRI or potential surgery, once insurance coverage is confirmed. 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 - Plan: Evaluate the severity of pain and consider administering corticosteroid injections if necessary. Monitor symptoms and consider referral to a specialist if pain worsens or becomes unmanageable. Anxiety and Blood Pressure Management - Assessment: Patient is currently taking clonazepam twice daily for anxiety and blood pressure control. Reports sometimes feeling like she needs more medication for anxiety, especially in social situations. - Plan: Continue the current medication regimen and encourage the patient to use the medication as prescribed. Schedule a follow-up appointment in 3 months or sooner if anxiety or blood pressure becomes uncontrolled. Legal and Insurance Issues - Assessment: Patient is currently involved in a legal case related to the blood loss incident and is awaiting approval for insurance coverage for various treatments. Has consulted with a fruit packer face and fill and provided extensive medical records for review. - Plan: Provide any necessary documentation to support the patient's case and coordinate with other healthcare providers as needed. Assist the patient in navigating insurance coverage and treatment options, particularly for physical therapy and potential back surgery. Fatigue and Sleep Issues - Assessment: Patient reports experiencing significant fatigue, often falling asleep in the afternoon and having difficulty sleeping at night. - Plan: Educate the patient on proper sleep hygiene and encourage her to rest when tired. Monitor iron levels and overall health to address potential underlying causes of fatigue. 04/10/2024 Major depressive disorder, recurrent, moderate (ICD-10 - F33.1) 11/24/2023 Major depressive disorder, recurrent, moderate (ICD-10 - F33.1) 04/10/2024 Esophageal stricture (ICD-10 - K22.2) 07/07/2024 Major depressive disorder, recurrent, moderate (ICD-10 - F33.1) 07/07/2024 Generalized anxiety disorder (ICD-10 - F41.1) 05/01/2024 Generalized anxiety disorder (ICD-10 - F41.1) 07/07/2024 Essential (primary) hypertension (ICD-10 - I10) 11/24/2023 Generalized anxiety disorder (ICD-10 - F41.1) 04/10/2024 Generalized anxiety disorder (ICD-10 - F41.1) 01/10/2024 Generalized anxiety disorder (ICD-10 - F41.1) Anemia and Recent Blood Loss - Assessment: Patient reports a history of significant blood loss and anemia. Hemoglobin was 7 point something, almost cut in half from 14, and iron levels were also low. Recent grain trimmer appointment scheduled for further evaluation. - Plan: Await results of upcoming grain trimmer appointment and blood work scheduled for Wednesday. Encourage the patient to continue consuming iron-rich foods. Monitor hemoglobin and iron levels closely and adjust treatment as needed. Back Pain and Bulging Discs - Assessment: Patient has a history of bulging discs in the neck (2), T-spine (2), and L1-S1, causing significant pain and discomfort. - Plan: Consider referring the patient to a local physical therapy center, such as [facility]. Monitor progress in therapy and reassess the need for further intervention, such as MRI or potential surgery, once insurance coverage is confirmed. 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 - Plan: Evaluate the severity of pain and consider administering corticosteroid injections if necessary. Monitor symptoms and consider referral to a specialist if pain worsens or becomes unmanageable. Anxiety and Blood Pressure Management - Assessment: Patient is currently taking clonazepam twice daily for anxiety and blood pressure control. Reports sometimes feeling like she needs more medication for anxiety, especially in social situations. - Plan: Continue the current medication regimen and encourage the patient to use the medication as prescribed. Schedule a follow-up appointment in 3 months or sooner if anxiety or blood pressure becomes uncontrolled. Legal and Insurance Issues - Assessment: Patient is currently involved in a legal case related to the blood loss incident and is awaiting approval for insurance coverage for various treatments. Has consulted with a fruit packer face and fill and provided extensive medical records for review. - Plan: Provide any necessary documentation to support the patient's case and coordinate with other healthcare providers as needed. Assist the patient in navigating insurance coverage and treatment options, particularly for physical therapy and potential back surgery. Fatigue and Sleep Issues - Assessment: Patient reports experiencing significant fatigue, often falling asleep in the afternoon and having difficulty sleeping at night. - Plan: Educate the patient on proper sleep hygiene and encourage her to rest when tired. Monitor iron levels and overall health to address potential underlying causes of fatigue. 10/26/2023 Generalized anxiety disorder (ICD-10 - F41.1) 10/18/2023 Essential (primary) hypertension (ICD-10 - I10) Anemia - Assessment: Patient reports taking a full iron tablet and has a hemoglobin level of 11.9, with normal being 13. - Plan: - Continue iron supplementation (27 mg daily) and follow up with grain trimmer in December. - Patient should avoid strenuous activities until hemoglobin levels normalize. - Treasury Specialist mentioned possibility of iron infusion but will reassess in December. Shortness of Breath - Assessment: Patient reports improvement in shortness of breath. - Plan: - Monitor symptoms and continue to follow up with grain trimmer. - Treasury Specialist estimates it may take three more months for full improvement. Back Pain and Leg Weakness - Assessment: Patient reports persistent back pain and occasional leg weakness, likely due to herniated discs. - Plan: - Follow up with Dr. Pierce for further evaluation and management. - Patient has been attending therapy appointments for back issues. Anxiety - Assessment: Patient reports high anxiety, particularly during tasks and appointments. - Plan: - Continue current medication (0.5 mg twice a day) and maintain weekly therapy sessions with Breana. - Reassess in three months or sooner if symptoms worsen. Hypotension - Assessment: Patient reports low blood pressure readings at home, possibly related to white coat syndrome. Recent reading was 99/50. - Plan: - Monitor blood pressure at home and discuss with primary care provider if consistently low readings persist. Lifestyle Modifications - Assessment: Patient reports improved diet and elimination of caffeine. - Plan: - Encourage continued healthy lifestyle choices and monitor for any changes in symptoms. Past Trauma - Assessment: Patient reports history of heart attack and significant blood loss 14 weeks ago. - Plan: - Continue monitoring recovery progress and address any concerns with primary care provider. Pet Health Concerns - Assessment: Patient reports concern for dog's health, mentioning bleeding issues. - Plan: - Encourage patient to take dog to the first breaker feeder for evaluation and treatment as needed. Mental Health Therapy - Assessment: Patient inquires about the duration of therapy sessions with Breana. - Plan: - Advise patient to discuss session frequency and duration with Breana during their next appointment. - Patient reports seeing Breana weekly and finding the sessions helpful. 10/12/2023 Generalized anxiety disorder (ICD-10 - F41.1) 09/29/2023 Generalized anxiety disorder (ICD-10 - F41.1) Client reports that since she was diagnosed with low iron, she has been experiencing a number of related health issues. Her doctor and the ER dropped the ball when she was bleeding and should have had a transfusion. The delays in treatment and getting the right medications have increased her anxiety and frustration. She is complaining of shortness of breath. Therapist actively listened to client and utilized a cognitive behavioral intervention to help client explore strategies to minimize her anxiety and frustration. Therapist also suggested client get in to see her appropriate doctor/specialist. Client also focused on her relationship with her siblings. She reports they are never around to help her when she is in need but reports she has always been around to help them throughout the years. This is also a huge source of frustration for client. Therapist utilized a cognhitive behavioral intervention to help client explore strategies to set boundaries with them. 09/20/2023 Generalized anxiety disorder (ICD-10 - F41.1) Post-extraction Hemorrhage and Anemia - Assessment: Patient experienced significant bleeding and anemia following dental extraction while on Plavix and aspirin. Hemoglobin dropped to 7, and hematocrit was half of the normal value. - Plan: Continue monitoring hemoglobin and hematocrit levels. Encourage the patient to follow up with their primary care physician and card sorter regarding the use of Plavix and aspirin. Advise the patient to avoid strenuous activities until blood levels improve, as recommended by their heart doctor. Concussion and Cervical/Thoraci c Spine Bulging Discs - Assessment: Patient sustained a concussion and bulging discs in the C-spine and thoracic spine after falling and hitting their head in the ER bathroom. - Plan: Continue physical therapy at [facility] for the back and neck. Monitor for any worsening of symptoms or new neurological deficits. Encourage the patient to follow up with their primary care physician for further evaluation and management. Vertigo - Assessment: Patient developed vertigo following the head injury. - Plan: Continue therapy for vertigo management. Monitor for any recurrence or worsening of symptoms. Encourage the patient to follow up with their primary care physician for further evaluation and management. Anxiety - Assessment: Patient is currently taking clonazepam 0.5mg twice a day and has stopped taking Buspar. - Plan: Discontinue Buspar. Continue clonazepam 0.5mg twice a day for anxiety management. Schedule a four-week follow-up appointment to assess the patient's progress and adjust the treatment plan as needed. Post-traumatic Headache - Assessment: Patient has been experiencing headaches, possibly related to the concussion, anemia, or head injury. - Plan: Monitor headache frequency and severity. Encourage the patient to follow up with their primary care physician for further evaluation and management. Consider referral to a neurologist if headaches persist or worsen. Coordination of Care - Assessment: Patient has multiple ongoing therapies and follow-up appointments. - Plan: Encourage the patient to maintain open communication with all healthcare providers involved in their care. Offer flexibility in scheduling follow-up appointments to accommodate the patient's therapy schedule. 09/20/2023 Essential (primary) hypertension (ICD-10 - I10) Post-extraction Hemorrhage and Anemia - Assessment: Patient experienced significant bleeding and anemia following dental extraction while on Plavix and aspirin. Hemoglobin dropped to 7, and hematocrit was half of the normal value. - Plan: Continue monitoring hemoglobin and hematocrit levels. Encourage the patient to follow up with their primary care physician and card sorter regarding the use of Plavix and aspirin. Advise the patient to avoid strenuous activities until blood levels improve, as recommended by their heart doctor. Concussion and Cervical/Thoraci c Spine Bulging Discs - Assessment: Patient sustained a concussion and bulging discs in the C-spine and thoracic spine after falling and hitting their head in the ER bathroom. - Plan: Continue physical therapy at [facility] for the back and neck. Monitor for any worsening of symptoms or new neurological deficits. Encourage the patient to follow up with their primary care physician for further evaluation and management. Vertigo - Assessment: Patient developed vertigo following the head injury. - Plan: Continue therapy for vertigo management. Monitor for any recurrence or worsening of symptoms. Encourage the patient to follow up with their primary care physician for further evaluation and management. Anxiety - Assessment: Patient is currently taking clonazepam 0.5mg twice a day and has stopped taking Buspar. - Plan: Discontinue Buspar. Continue clonazepam 0.5mg twice a day for anxiety management. Schedule a four-week follow-up appointment to assess the patient's progress and adjust the treatment plan as needed. Post-traumatic Headache - Assessment: Patient has been experiencing headaches, possibly related to the concussion, anemia, or head injury. - Plan: Monitor headache frequency and severity. Encourage the patient to follow up with their primary care physician for further evaluation and management. Consider referral to a neurologist if headaches persist or worsen. Coordination of Care - Assessment: Patient has multiple ongoing therapies and follow-up appointments. - Plan: Encourage the patient to maintain open communication with all healthcare providers involved in their care. Offer flexibility in scheduling follow-up appointments to accommodate the patient's therapy schedule. 01/10/2024 Essential (primary) hypertension (ICD-10 - I10) Anemia and Recent Blood Loss - Assessment: Patient reports a history of significant blood loss and anemia. Hemoglobin was 7 point something, almost cut in half from 14, and iron levels were also low. Recent grain trimmer appointment scheduled for further evaluation. - Plan: Await results of upcoming grain trimmer appointment and blood work scheduled for Wednesday. Encourage the patient to continue consuming iron-rich foods. Monitor hemoglobin and iron levels closely and adjust treatment as needed. Back Pain and Bulging Discs - Assessment: Patient has a history of bulging discs in the neck (2), T-spine (2), and L1-S1, causing significant pain and discomfort. - Plan: Consider referring the patient to a local physical therapy center, such as [facility]. Monitor progress in therapy and reassess the need for further intervention, such as MRI or potential surgery, once insurance coverage is confirmed. 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 - Plan: Evaluate the severity of pain and consider administering corticosteroid injections if necessary. Monitor symptoms and consider referral to a specialist if pain worsens or becomes unmanageable. Anxiety and Blood Pressure Management - Assessment: Patient is currently taking clonazepam twice daily for anxiety and blood pressure control. Reports sometimes feeling like she needs more medication for anxiety, especially in social situations. - Plan: Continue the current medication regimen and encourage the patient to use the medication as prescribed. Schedule a follow-up appointment in 3 months or sooner if anxiety or blood pressure becomes uncontrolled. Legal and Insurance Issues - Assessment: Patient is currently involved in a legal case related to the blood loss incident and is awaiting approval for insurance coverage for various treatments. Has consulted with a fruit packer face and fill and provided extensive medical records for review. - Plan: Provide any necessary documentation to support the patient's case and coordinate with other healthcare providers as needed. Assist the patient in navigating insurance coverage and treatment options, particularly for physical therapy and potential back surgery. Fatigue and Sleep Issues - Assessment: Patient reports experiencing significant fatigue, often falling asleep in the afternoon and having difficulty sleeping at night. - Plan: Educate the patient on proper sleep hygiene and encourage her to rest when tired. Monitor iron levels and overall health to address potential underlying causes of fatigue. 04/10/2024 Essential (primary) hypertension (ICD-10 - I10) 07/07/2024 Mixed hyperlipidemia (ICD-10 - E78.2) 07/07/2024 Negative depression screening (ICD-10 - Z13.31) 01/10/2024 Mixed hyperlipidemia (ICD-10 - E78.2) Anemia and Recent Blood Loss - Assessment: Patient reports a history of significant blood loss and anemia. Hemoglobin was 7 point something, almost cut in half from 14, and iron levels were also low. Recent grain trimmer appointment scheduled for further evaluation. - Plan: Await results of upcoming grain trimmer appointment and blood work scheduled for Wednesday. Encourage the patient to continue consuming iron-rich foods. Monitor hemoglobin and iron levels closely and adjust treatment as needed. Back Pain and Bulging Discs - Assessment: Patient has a history of bulging discs in the neck (2), T-spine (2), and L1-S1, causing significant pain and discomfort. - Plan: Consider referring the patient to a local physical therapy center, such as [facility]. Monitor progress in therapy and reassess the need for further intervention, such as MRI or potential surgery, once insurance coverage is confirmed. 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 - Plan: Evaluate the severity of pain and consider administering corticosteroid injections if necessary. Monitor symptoms and consider referral to a specialist if pain worsens or becomes unmanageable. Anxiety and Blood Pressure Management - Assessment: Patient is currently taking clonazepam twice daily for anxiety and blood pressure control. Reports sometimes feeling like she needs more medication for anxiety, especially in social situations. - Plan: Continue the current medication regimen and encourage the patient to use the medication as prescribed. Schedule a follow-up appointment in 3 months or sooner if anxiety or blood pressure becomes uncontrolled. Legal and Insurance Issues - Assessment: Patient is currently involved in a legal case related to the blood loss incident and is awaiting approval for insurance coverage for various treatments. Has consulted with a fruit packer face and fill and provided extensive medical records for review. - Plan: Provide any necessary documentation to support the patient's case and coordinate with other healthcare providers as needed. Assist the patient in navigating insurance coverage and treatment options, particularly for physical therapy and potential back surgery. Fatigue and Sleep Issues - Assessment: Patient reports experiencing significant fatigue, often falling asleep in the afternoon and having difficulty sleeping at night. - Plan: Educate the patient on proper sleep hygiene and encourage her to rest when tired. Monitor iron levels and overall health to address potential underlying causes of fatigue. 04/10/2024 Mixed hyperlipidemia (ICD-10 - E78.2) 07/07/2024 Benign essential HTN (ICD-10 - I10) 04/10/2024 Benign essential HTN (ICD-10 - I10) 07/07/2024 Encounter for screening for cardiovascular disorders (ICD-10 - Z13.6) 07/07/2024 Dietary counseling and surveillance (ICD-10 - Z71.3) 04/10/2024 KEYANNA (generalized anxiety disorder) (ICD-10 - F41.1) 07/07/2024 Memory impairment (ICD-10 - R41.3) 10/12/2023 Other Client is terrell hall struggling with anemia. She did see a grain trimmer and additional tests have been run and she is still awaiting the results. She goes to physical therapy twice a week. She still is unable to do any strenuous work like mowing the yard. She has gone low contact with her siblings. She spent some time focusing on her mother's mental illness and treatments, and the impact on the family. Therapist actively listened to client and provided a cognitive behavioral intervention to help client explore strategies to set boundaries with her siblings. 10/26/2023 Other Client reports her latest lab work shows that her iron count is improving and she is feeling a bit better. Client began by focusing on and rehashing her heart attack, hemmoraging, etc. She also focused on the family dysfunction. She states she feels overwhelmed sometimes by all her doctor appointments and family issues. Therapist actively listened to client and utilized a cognitive behavioral intervention to help client explore strategies to help her feel like she is able to better function in enjoyable activities. 11/24/2023 Other Client reports she contacted an finance attorney to address some of the medical misteps that caused her healht issues. Client focused on the details of what happened with various medical providers and how they mishandled the issues at that time. Therapist allowed client to vent and provided a supportive intervention by verbalizing support and validation of her progress. 04/10/2024 Other Esophageal Stricture and Gastric Polyps - Plan: - Continue monitoring for any recurrence of symptoms. - Encourage the patient to maintain a healthy diet. - Follow up with med surg nurse as needed. Iron Deficiency Anemia - Plan: - Continue iron supplementation as prescribed by grain trimmer. - Monitor for any side effects. - Encourage the patient to consume iron-rich foods. - Follow up with grain trimmer as needed. History of Heart Attack and Headaches - Plan: - Continue monitoring for any cardiac symptoms or recurrence of headaches. - Encourage the patient to maintain a heart-healthy lifestyle. - Follow up with card sorter in June. Anxiety - Plan: - Continue monitoring anxiety levels. - Consider referral to a mental health professional if symptoms worsen or become unmanageable. - Encourage the patient to practice stress-reduction techniques and maintain a healthy lifestyle. Financial Stress - Plan: - Encourage the patient to seek appropriate legal and financial advice. - Offer referral to a social sciences professor or financial counselor if needed. Medication Management - Plan: - Continue to monitor the patient's response to current medications. - Adjust as needed based on clinical findings and patient preferences. Urine Drug Screen - Plan: - Order urine drug screen and review results before sending the prescription. - Follow up with the patient as needed based on the results. 07/07/2024 Other Alessia Cheung, female patient with atopic dermatitis affecting eyes, arms, and neck for 6 weeks, presenting with anxiety and concerns about medication side effects. Atopic Dermatitis Assessment: Patient presents with atopic dermatitis affecting multiple areas including eyes, arms, and neck for the past 6 weeks. Previous treatments include cortisone salve, Vaseline for moisturizing, antihistamine eye drops, and tacrolimus, which caused burning sensation. Patient reports no changes in potential irritants such as shampoo or laundry detergent. Speech Language Pathologist and public address system installer have been consulted twice each. Prednisone was recommended but patient declined due to anxiety concerns. Plan: - Consider trial of Claritin (loratadine) 10 mg PO daily - Advised patient can start in the evening to assess tolerability - Continue current topical treatments as directed by public address system installer and stamp presser - Follow up with public address system installer and stamp presser as scheduled - Return for follow-up in 3 months Anxiety Assessment: Patient reports ongoing anxiety, which has impacted treatment decisions for atopic dermatitis (declined prednisone). Currently managed with clonazepam. Plan: - Continue clonazepam 0.5 mg PO BID - Prescription for clonazepam will be sent to pharmacy Cognitive Concerns Assessment: Routine cognitive screening recommended to rule out dementia. Plan: - Schedule memory test (computer-based, approximately 1 hour duration) - Test to be completed before next follow-up appointment Hypertension Assessment: Patient reports slightly elevated blood pressure during visit. Recent cardiac workup including nuclear medicine treadmill test and MRI showed no significant findings. Patient attributes elevated readings to White Coat Syndrome, as reported by her card sorter. Plan: - Continue follow-up with card sorter as scheduled - Patient to obtain results of recent cardiac tests at next cardiology appointment Disclaimer: This note has been transcribed using speech recognition software and serves as a reflection of the patient's visit. While efforts have been made to ensure accuracy, there may be errors, including raking machine operator inaccuracies and misspellings of medication names. This document should not be considered a verbatim record, and any discrepancies should be verified with the provider. Plan Of Treatment Pending Test Test Name Order Date UDT 07/07/2024 Next Appt Details Provider Name:Cesar Castro , 08/16/2024 01:00:00 PM, [address], [facility] [address], [place], [address], Provider Name:Cesar Castro , 09/06/2024 10:45:00 AM, [address], [address], [place], [address], Insurance Providers Payer Name Payer Address Payer Phone Subscriber Number Group Number Insured Name Patient Relationship to Insured Coverage Start Date Coverage End Date [employer] Medicare Replacement/ Advantage - Hmo [address] [place] [phone] [id number] ALESSIA CHEUNG Self - patient is the insured Medical (General) History Medical History History ICD Code Problems: Benign essential hypertension Chest pain Coronary arteriosclerosis Gastroesophageal reflux disease Generalized anxiety disorder Loss of appetite Mixed hyperlipidemia Moderate recurrent major depression , Surgical History Surgery Date(Month/Year) Tonsilectomy/adenoids 03/01/1960 Removal of gallbladder (40093) 4 Appendectomy (76683) 03/01/2007
[2024-08-10 12:16] LABS: Alanine Aminotransferase 14 U/L (6-35); Albumin Level 4.2 g/dL (3.5-5.1); Alkaline Phosphatase 78 U/L (38-126); Anion Gap 5 mmol/L (4-12); Aspartate Amino Transferase 28 U/L (14-36); Bilirubin,Total 0.8 mg/dL (0.2-1.3); Blood Urea Nitrogen 9 mg/dL (7-17); Calcium 9.7 mg/dL (8.4-10.2); Carbon Dioxide 30 mmol/L (22-30); Chloride 101 mmol/L (98-107); Estimated Glomerular Filt Rate > 60; Glucose 60 mg/dL (65-110); Potassium 4.4 mmol/L (3.4-5.0); Sodium 136 mmol/L (137-145); Total Protein 7.2 g/dL (6.3-8.2)
[2024-08-10 12:24] LABS: Erythrocyte Sedimentation Rate 17 mm/hr (0-20)
== END 2024-08-10 11:01 | disposition home or self-care (01) ==
PROVIDERS: PCP Clinical Nurse Specialist
DX: L30.9 Dermatitis, unspecified (principal)
CPT/HCPCS: 36415; 80053; 85652

== ENCOUNTER 2024-09-18 12:55 | Outpatient (CLI) | payer OTHER, SELFPAY ==
--- OUTSIDE RECORDS SUMMARY | 2024-09-18 13:02 | XMS_ITS | Patient Health Record ---
Author Organization [facility] [employer] ([address]) Address [address] [address] [place] [address] Care Team Providers Care Stand Up Comedian Name Role Phone Nicola Castaneda Primary Care Provider Unavailab Viv Cheung Unavailable [phone] Allergies No Known Allergies Reason For Referral No Information Medications Medication SIG (Take, Route, Frequency, Duration) Notes Start Date End Date Status Hydrocortisone 2.5 % External; Duration: 30 Days Active clonazePAM 0.5 MG Oral; Duration: 30 Days Active Triamcinolone Acetonide 0.1 % External; Duration: 30 Days Active Desonide 0.05 % External; Duration: 30 Days Active Atenolol 100 MG Oral; Duration: 90 Days Active Prevacid 30 MG 1 capsule 1/2 to 1 h our before morning meal Orally Once a day; Duration: 30 day(s) 08/09/2024 Active Vitamin D 50 MCG (1999 UT) 1 tablet Oral ly Once a day; Duration: 30 day(s) 08/09/2024 Active Vitamin B12 08/09/2024 Active Iron 08/09/2024 Active Aspirin 81 MG 1 tablet Orally Once a day; Duration: 30 day(s) 08/09/2024 Active Triamcinolone Acetonide 0.1 % External; Duration: 30 Days Active Social History Tobacco Use: Social History Observation Description Date Details (start date - stop date) Never Smoker NA - NA Sex Assigned At : Social History Observation Description Sex Assigned At Female Tobacco Control (Standard) Question Answer Notes Tobacco use: Nonsmoker AUDIT-C (Standard) Question Answer Notes Did you have a drink containing alcohol in the p ast year? 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 from working in [employer], Problems Problem Type SNOMED Code ICD Code Onset Dates Problem Status W/U Status Risk Notes Problem Chronic rhinitis (96471831) Chronic rhinitis (J31.0) Active confirmed Vital Signs Blood pressure diastolic 96 mm Hg 08/30/2024 Oximetry 99 % 08/30/2024 Height 63.5 in 08/30/2024 Blood pressure systolic 156 mm Hg 08/30/2024 Weight 97.0 lbs 08/30/2024 BMI 16.91 kg/m2 08/30/2024 Encounters Encounter Location Date Provider Diagnosis [address] [address] 08/09/2024 Viv Maria M Dermatitis, unspecified L30.9 and Chronic rhinitis J31.[address] [address] 08/30/2024 Viv Maria M Dermatitis, unspecified L30.9 and Chronic rhinitis J31.0 [facility] [address] [place] [address] 08/09/[address] [facility] [address] [place] [address] 08/14/2024 Viv Franz Assessments Encounter Date Diagnosis (ICD Code) Assessment Notes Treatment Notes Treatment Clinical Notes Section Notes 08/09/2024 Dermatitis, unspecified (ICD-10 - L30.9) Recurrent dermatitis and unclear cause. Skin testing today was negative and we discussed returning for patch testing. She would like to think about patch testing. For now, start a trial of Zyrtec 10 mg BID and Famotidine 20 mg BID. Labs ordered as above for further evaluation. 08/09/2024 Chronic rhinitis (ICD-10 - J31.0) Given the history and symptoms, skin testing was performed to common aeroallergens to determine atopic status. Skin testing today was negative for aeroallergens. We discussed non allergic rhinitis including trigger factors of strong odors and changes in barometric pressure. 08/30/2024 Dermatitis, unspecified (ICD-10 - L30.9) Recurrent dermatitis and unclear cause. Skin testing was negative for aeroallergens. Plan for patch tesitng in a few weeks. Hold antihistamines since she does not feel that they are helping her skin. Depending on results of patch testing, recommend biopsy. 08/30/2024 Chronic rhinitis (ICD-10 - J31.0) Skin testing was negative for aeroallergens. We discussed non allergic rhinitis including trigger factors of strong odors and changes in barometric pressure. 08/09/2024 Other 08/30/2024 Other Plan Of Treatment Pending Test Test Name Order Date COMPREHENSIVE METABOLIC PANEL 08/09/2024 CBC (INCLUDES DIFF/PLT) 08/09/2024 SED RATE BY MODIFIED CHANTALREN 08/10/19 Next Appt Details Provider Name:Ana pritchett, 10/16/2024 01:30:00 PM, [address], [address], [address], Provider Name:Viv garcia, 10/18/2024 11:00:00 AM, [address], [address], [place], [address], Provider Name:Chidi Gray, 10/19/2024 11:00:00 AM, [address], [place], [address], Insurance Providers Payer Name Payer Address Payer Phone Subscriber Number Group Number Insured Name Patient Relationship to Insured Coverage Start Date Coverage End Date [employer] Ad[employer]age [address] [address] [place] [phone] [id number] Vielka Cheung Self - patient is the insured Medical (General) History Medical History History ICD Code Anxiety Coronary artery disease vertigo Gastro-esophageal reflux disease without esophagitis K21.9 Surgical History Surgery Date(Month/Year) cardiac stents Hospitalization History Reason Date(Month/Year) myocardial infarction
--- OUTSIDE RECORDS SUMMARY | 2024-09-18 13:02 | XMS_ITS | Clinical Summary ---
Author Organization [facility] Address [address] [place] [address] Care Team Providers Care Senior Ecologist Name Role Phone Nicola Castaneda DO Primary Care Provider [phone] Allergies Active Allergy Reactions Criticality Noted Date Comments Clindamycin Nausea and Vomiting Low 10/08/2023 Clonidine Vomiting 12/24/2022 Iodine Vomiting 05/25/2023 She is unsure if allergic Midazolam Vomiting 05/25/2023 She is unsure if she is allergic to this Medications clonazePAM (KLONOPIN) 0.5 MG disintegrating tablet Take 0.5 tablets (0.25 mg total) by mouth 3 (three) times daily. Active aspirin 81 MG chewable tablet Chew 1 tablet (81 mg total) by mouth daily. 30 tablet 3 3 Active nitroglycerin (NITROSTAT) 0.[address] 1 tablet (0.4 mg total) under the tongue every 5 (five) minutes as needed for Chest Pain. 90 tablet 2 3 Active calcium carbonate (TUMS) 500 MG chewable tablet Chew 1 tablet (500 mg total) by mouth daily. Active cyanocobalamin (VIT B-12) 250 MCG Tab Take 1 tablet (250 mcg total) by mouth daily. Active vitamin D3 (CHOLECALCIFEROL) 75 mcg Tab tablet Take 1 tablet (75 mcg total) by mouth daily. Active triamcinolone (KENALOG) 0.1 % creamIndications:I tching Apply topically 2 (two) times daily. 45 g 4 Active hydrOXYzine (ATARAX) 10 MG tablet Take 0.5-1 tablets (5-10 mg total) by mouth daily as needed. 4 Active lansoprazole (PREVACID) 30 MG capsule Take 1 capsule (30 mg total) by mouth daily. 4 Active atenolol (TENORMIN) 100 MG tabletIndications: Benign essential HTN take 1 tablet by mouth every day 90 tablet 4 Active clobetasol (TEMOVATE) 0.05 % external solution Apply topically 2 (two) times daily. Active Ferrous Sulfate (IRON) 28 MG Tab 1 tablet Orally Three times a Week Active pantoprazole EC (PROTONIX) 40 MG tablet TAKE 1 TABLET BY MOUTH EVERY DAY Oral for 90 Days Active hydrocortisone 2.5 % cream APPLY TO AFFECTED AREAS AT BEDTIME 5 Active desonide (DESOWEN) 0.05 % cream 5 Active Active Problems Problem Noted Date Diagnosed Date Memory impairment 07/21/2024 Generalized anxiety disorder 07/19/2023 Moderate recurrent major depression 07/19/2023 GERD (gastroesophageal reflux disease) 4 Anxiety 03/26/2023 Esophageal stricture 03/26/2023 Coronary artery disease invo lving [place] coronary artery of [place] heart without angina pectoris 01/14/2023 Benign essential HTN 01/14/2023 Mixed hyperlipidemia 01/14/2023 Chest pain 12/24/2022 Encounters Date Type Department Care Team Description 07/21/2024 11:00 AM CDT Office Visit [facility] on [address] [address] Skyla Riley MD Coronary Artery Disease (6 mo f/u); Hypertension; Lipids 07/21/2024 Travel 07/03/2024 Telephone [facility] - [address] [address] Nicola Castaneda DO Appointment Request from Last 3 Months Immunizations Immunization Administration Dates Next Due Influenza (Generic) 12/08/2013,03/13/2012,2008 Influenza Adult (Generic) 11/29/2014 Family History Medical History Relation Comments Breast Cancer Maternal Aunt Breast Cancer Sister Relation Status Comments Maternal Aunt Sister Social History Tobacco Use Types Packs/Day Years Used Date Smoking Tobacco: Former Cigarettes 1.5 15 0 03/01/1973 - 03/01/1988 Smokeless Tobacco: Never Tobacco Cessation:Counseling Given: No Alcohol Use Standard Drinks/Week Comments Never 0 (1 standard drink = 0.6 oz pur e alcohol) Humiliation, Afraid, Rape, and Kick questionnair e Answer Date Recorded Within the last year, have y ou been afraid of your partner or ex-partner? No 12/24/2022 Within the last year, have y ou been humiliated or emotionally abused in other ways by your partner or ex-partner? No Within the last year, have y ou been kicked, hit, slapped, or otherwise physically hurt by your partner or ex-partner? No 12/24/2022 Within the last year, have y ou been raped or forced to have any kind of sexual activity by your partner or ex-partner? No 12/24/2022 Social Connection and Isolat ion Panel [NHANES] Answer Date Recorded In a typical week, how many times do you talk on the phone with family, friends, or neighbors? More than three times a week 12/24/2022 How often do you get togethe r with friends or relatives? Once a week 12/24/2022 How often do you attend chur or taoism services? More than 4 times per year 12/24/2022 Do you belong to any clubs o r organizations such as spiritism groups, unions, fraternal or athletic groups, or school groups? No 12/24/2022 How often do you attend meet ings of the clubs or organizations you belong to? Never 12/24/2022 Are you , , di vorced, , never , or living with a partner? Never 12/24/2022 AUDIT-C Answer Date Recorded Q1: How often do you have a drink containing alcohol? Never 12/24/2022 Q2: How many drinks containi ng alcohol do you have on a typical day when you are drinking? Patient does not drink Q3: How often do you have si x or more drinks on one occasion? Never 12/24/2022 Overall Financial Resource Strain (CARDIA) Answe r Date Recorded How hard is it for you to pa y for the very basics like food, housing, medical care, and heating? Not very hard 12/24/2022 PHQ-2 Answer Date Recorded Patient Health Questionnaire-2 Score 0 03/26/2023 [facility] - Occupational Stress Questionnaire Answer Date Recorded Do you feel stress - tense, restless, nervous, or anxious, or unable to sleep at night because your mind is troubled all the time - these days? Very much 12/24/2022 Exercise Vital Sign Answer Date Recorde d On average, how many days pe r week do you engage in moderate to strenuous exercise (like a brisk walk)? 7 days 12/24/2022 On average, how many minutes do you engage in exercise at this level? 30 min 12/24/2022 Hunger Vital Sign Answer Date Recorded Within the past 12 months, y ou worried that your food would run out before you got the money to buy more. Never true 12/25/19 23 Within the past 12 months, t he food you bought just didn't last and you didn't have money to get more. Never true 12/24/2022 PRAPARE - Transportation Answer Date Re corded In the past 12 months, has l ack of transportation kept you from medical appointments or from getting medications? No 11/30 In the past 12 months, has l ack of transportation kept you from meetings, work, or from getting things needed for daily living? No 12/24/2022 Housing Stability Vital Sign Answer Leonardo e Recorded In the last 12 months, was t here a time when you were not able to pay the mortgage or rent on time? No 12/24/2022 In the last 12 months, how many places have you lived? 1 12/24/2022 In the last 12 months, was t here a time when you did not have a steady place to sleep or slept in a detention (including now)? No 12/24/2022 Comments No Sex and Gender Information Value Date Recorded Sex Assigned at Female 05/19/2024 9:13 AM CDT Legal Sex Female 9:52 PM CDT Gender Identity Not on file Sexual Orientation Not on file Last Filed Vital Signs Vital Sign Reading Time Taken Comments Blood Pressure 110/60 07/21/2024 11:27 AM CDT Pulse 64 07/21/2024 10:48 AM CDT Temperature 36.8 C (98.3 F) 02/21/2024 10:43 AM JUDICIAL LAW CLERK Respiratory Rate 16 03/26/2023 7:40 AM JUDICIAL LAW CLERK Oxygen Saturation 97% 07/21/2024 10:48 AM CDT Inhaled Oxygen Concentration - - Weight 44.6 kg (98 lb 6.4 oz) 07/21/2024 10:48 A M CDT Height 161.3 cm (5' 3.5) 07/21/2024 10:48 AM CD T Body Mass Index 17.16 07/21/2024 10:48 AM CDT Plan of Treatment Upcoming Encounters Date Type Department Care Team (Late st Contact Info) Description 03/27/2025 11:00 AM JUDICIAL LAW CLERK Office Visit [facility], [address] [id number] Skyla Riley MD [facility]. [address] [address] Health Maintenance Due Date Last Done Comments ASCVD Statin 1950 Colorectal Cancer Screening Colonoscopy (10 Years) 1950 Hepatitis C 1970 DTaP, Tdap and Td Vaccines ( 1 - Tdap) 10/02/1971 Pneumococcal Vaccine: 50+ Years (1 of 2 - PCV) 10/02/1971 Zoster Vaccines (1 of 2) 2002 RSV Immunization or 60+ Years (1 - Risk 60-74 years 1-dose series) 2012 Annual Medicare Wellness Visit 2017 Dexa Scan (General) 2017 Mammogram Screening 03/24/2023 03/24/2021, 09/27/2018, 09/16/2017 COVID-19 Vaccine (1 - 2023-2 5 season) 2023 PHQ-2 (Physician [place]) 03/01/2024 03/26/2023 ASCVD LDL 04/12/2024 04/12/2023, 12/24/2022, 03/06/2015 Meningococcal B Vaccine Aged Out No l onger eligible based on patient's age to complete this topic Meningococcal Vaccine Aged Out No mayur miki eligible based on patient's age to complete this topic RSV Immunizations Under 20 Months Aged Out No longer eligible b ased on patient's age to complete this topic Goals Goal Patient Goal Type Associated Problems Recent Progress Patient-Stated? 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 Procedure Name Priority Date/Time Associated Diagnosis Comments ELECTROCARDIOGRAM (NON MIDMARK ACQUIRED) Routine 07/21/2024 11:01 AM CDT Coronary artery disease involving [place] coronary artery of [place] heart without angina pectoris LIPID PANEL Routine 04/12/2023 MG SCREENING W DEVANG DEBBIE DIGI Routine 03/24/2021 10:46 AM JUDICIAL LAW CLERK Encounter for screening mammogram for malignant neoplasm of breast from Last 3 Months or Most Recently Relevant to Health Maintenance Results * ELECTROCARDIOGRAM (07/21/2024 11:01 AM CDT) 07/21/2024 11:0 1 AM CDT Narrative [facility] - 07/21/2024 12:16 PM CDT [facility] Test Date: 2024-07-21 Pat Name: ALESSIA CHEUNG Department: 112 Room: Gender: Female Produce Wrapper: : 1950 Requested By: SKYLA RILEY Order Number: [id number] Heather MD: Skyla Riley Measurements Intervals [place] Rate: 66 P: 4 FL: 170 QRS: 66 QRSD: 74 T: 56 QT: 407 QTc: 427 Interpretive Statements SINUS RHYTHM MODERATE VOLTAGE CRITERIA FOR LVH, CONSIDER NORMAL VARIANT Procedure Note Skyla Riley MD - 07/21/2024 [facility], [facility] Test Date: 2024-07-21 Pat Name: ALESSIA CHEUNG Department: 112 Room: Gender: Female Produce Wrapper: : 1950 Requested By: SKYLA RILEY Order Number: [id number] Reading MD: Skyla Riley Measurements Intervals [place] Rate: 66 P: 4 FL: 170 QRS: 66 QRSD: 74 T: 56 QT: 407 QTc: 427 Interpretive Statements SINUS RHYTHM MODERATE VOLTAGE CRITERIA FOR LVH, CONSIDER NORMAL VARIANT us Skyla Riley MD PROCEDURES-ORDERABLE NO CHARGE Final Result [facility] * LIPID PANEL (04/12/2023) CHOLESTEROL 146 HDL 60 TRIGLYCERIDES 86 DIRECT LDL 71 04/12/2023 us Default History Genericprovider LABORATORY Final Result * MG SCREENING W DEVANG DEBBIE DIGI (03/24/2021 10:46 AM JUDICIAL LAW CLERK) Anatomical Region Laterality Modality Breast Bilateral Mammography 03/24/2021 11:1 3 AM JUDICIAL LAW CLERK Impressions 03/24/2021 11:15 AM JUDICIAL LAW CLERK ===== IMPRESSION: ===== 1. Stable mammographic appearance with no new findings to suggest malignancy in either breast. Assessment: ACR BI-RADS 2 - BENIGN FINDING(S) Recommendation: 1:Routine Screening Bilateral Comments: Ordered By: SAM GARCIA Interpreted By: Rangel Puentes MD, 03/24/2021 11:13 AM Narrative 03/24/2021 11:15 AM JUDICIAL LAW CLERK Examination: Digital bilateral screening mammogram with 3D Tomosynthesis Exam Date/Time: 03/24/2021 10:27 AM Reason For Exam: SCREENING Benign left biopsy 2009. No other prior breast procedures. Breast cancer in a sister at age 61. No personal history of breast cancer. No current complaints. Comparison: Mammograms from 09/27/2018 09/16/2017 05/26/2016 Technique: Digital screening mammography of both breasts was performed in addition to 3-D Tomosynthesis technique. This study was read with the assistance of a computer-aided detection system. Tissue density: There are scattered areas of fibroglandular density. Findings: Biopsy marker again seen in the left breast. Overall parenchymal pattern unchanged from prior studies. There is no new focal asymmetry, dominant mass lesion, area of skin thickening, or cluster of suspicious appearing calcifications in either breast to suggest malignancy. 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
--- OUTSIDE RECORDS SUMMARY | 2024-09-18 13:02 | XMS_ITS | Patient Health Record ---
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 Name Role Phone Nicola Castaneda DO Primary Care Provider Cesar Esquivel Unavailable [phone] Linda James Unavailable [phone] Angela Melara Unavailable [phone] Allergies Allergen (clinical drug ingredient) Drug/Non Drug Allergy documented on EMR Reaction Allergy Type Onset Date Status Midazolam Unknown Drug Allergy Active clonidine cloNIDine Unknown Drug Allergy 07/19/2023 Active Results Component Value Reference Range Notes Benzodiazepines Reviewed date:09/08/2024 09:03:44 PM Interpretation: Performing Lab:[address] [place] [address], [address] [place] [address], Director - [id number] Notes/Report: An exception occurred while processing this report and so it has incomplete data. Please contact [email or web address] Support for assistance. Not Medicated Consistent Not Medicated Consistent Medicated Consistent Not Medicated Consistent Not Medicated Consistent Not Medicated Consistent Not Medicated Consistent Not Medicated Consistent Not Medicated Consistent Medicated Consistent 7-Aminoclonazepam 106.1 20.0 ng/mL Temazepam NEGATIVE 40.0 ng/mL Oxazepam NEGATIVE 40.0 ng/mL Midazolam NEGATIVE 40.0 ng/mL Lorazepam NEGATIVE 40.0 ng/mL Nordiazepam NEGATIVE 40.0 ng/mL Diazepam NEGATIVE 40.0 ng/mL Clonazepam NEGATIVE 20.0 ng/mL Hydroxyalprazolam NEGATIVE 20.0 ng/mL Alprazolam NEGATIVE 20.0 ng/mL PDF Report [email or web address] [email or web address] Validity Testing Reviewed date:09/08/2024 09:03:44 PM Interpretation: Performing Lab: Notes/Report: Not Medicated Consistent Not Medicated Consistent Not Medicated Consistent Not Medicated Consistent Specific [place] 1.004 1.003 - 1.030 pH 6.1 3.0 - 10.9 Oxidants -6 200 g/mL Creatinine 28.5 20.0 - 300.0 mg/dL UDT Reviewed date:09/06/2024 11:13:25 AM Interpretation: Performing Lab: Notes/Report: THC N 0 - 50 ng/ml Cocaine N 0 - 300 ng/ml Amphetamine N 0 - 1000 ng/ml Buprenorphine (BUP) N 0 - 10 ng/ml Secobarbital (Bar) N 0 - 300 ng/ml Oxazepam (BZO) N 0 - 300 ng/ml 9-baisfpydus-3,2-nccdedrg-0, 3-diphe nylpyrrolidine (EDDP) N 0 - 300 ng/ml Methamphetamine (MET) N 0 - 1000 ng/ml Methylenedioxymethamphetamin e (MDMA) N 0 - 500 ng/ml Morphine (MOP 300/[id number]) N 0 - 300 ng/ml Methadone (MTD) N 0 - 300 ng/ml Phencyclidine (PCP) N 0 - 25 ng/ml Nortriptyline (TCA) N 0 - 1000 ng/ml Oxycodone N 0 - 300 ng/ml x N 0 - 300 ng/ml DRUG MONITOR, BENZO, QN, URI [place] ([id number]) Reviewed date:04/11/2024 02:56:47 PM Interpretation: Performing Lab:JOSE ARMANDO, [facility] [id number] [facility] [id number] Byron Humphrey, Director - [id number] [facility] Notes/Report: FASTING: NO Alphahydroxyalprazolam NEGATIVE <25 ng/mL [...] analytical performance characteristics have been determined by [facility]. It has not been cleared or approved by the FDA. This assay has been validated pursuant to the CLIA regulations and is used for clinical purposes. Healthcare Providers needing Interpretation assistance, please contact us at [phone] ( ) M-F, 8am to 10pm EST UDT Reviewed date:01/10/2024 02:49:59 PM Interpretation: Performing Lab: Notes/Report: THC n 0 - 50 ng/ml Cocaine n 0 - 300 ng/ml Amphetamine n 0 - 1000 ng/ml Buprenorphine (BUP) n 0 - 10 ng/ml Secobarbital (Bar) n 0 - 300 ng/ml Oxazepam (BZO) n 0 - 300 ng/ml 7-kxpuejhkxy-7,1-zppjxtam-0, 3-diphe nylpyrrolidine (EDDP) n 0 - 300 ng/ml Methamphetamine (MET) n 0 - 1000 ng/ml Methylenedioxymethamphetamin e (MDMA) n 0 - 500 ng/ml Morphine (MOP 300/[id number]) n 0 - 300 ng/ml Methadone (MTD) [...] Oxazepam (BZO) N 0 - 300 ng/ml 9-sjpmyboaye-6,3-qytxtxfi-2, 3-diphe nylpyrrolidine (EDDP) N 0 - 300 ng/ml Methamphetamine (MET) N 0 - 1000 ng/ml Methylenedioxymethamphetamin e (MDMA) N 0 - 500 ng/ml Morphine (MOP 300/[id number]) N 0 - 300 ng/ml Methadone (MTD) N 0 - 300 ng/ml Phencyclidine (PCP) N 0 - 25 ng/ml Nortriptyline (TCA) N 0 - 1000 ng/ml Oxycodone N 0 - 300 ng/ml x N 0 - 300 ng/ml UDT Reviewed date:09/20/2023 11:10:54 AM Interpretation: Performing Lab: Notes/Report: THC N 0 - 50 ng/ml Cocaine N 0 - 300 ng/ml Amphetamine N 0 - 1000 ng/ml Buprenorphine (BUP) N 0 - 10 ng/ml Secobarbital (Bar) N 0 - 300 ng/ml Oxazepam (BZO) N 0 - 300 ng/ml 5-chilacbejt-3,2-nftyjsfs-3, 3-diphe nylpyrrolidine (EDDP) N 0 - 300 ng/ml Methamphetamine (MET) N 0 - 1000 ng/ml Methylenedioxymethamphetamin e (MDMA) N 0 - 500 ng/ml Morphine (MOP 300/[id number]) N 0 - 300 ng/ml Methadone (MTD) N 0 - 300 ng/ml Phencyclidine (PCP) N 0 - 25 ng/ml Nortriptyline (TCA) N 0 - 1000 ng/ml Oxycodone N 0 - 300 ng/ml x N 0 - 300 ng/ml Reason For Referral No Information Medications Medication SIG (Take, Route, Frequency, Duration) Notes Start Date End Date Status clonazePAM 0.5 MG TAKE 1 TABLET BY MOUTH TWICE A DAY; Duration: 30 08/03/2024 Active B-12 250 mcg ORAL 07/19/2023 Active Triamcinolone Acetonide 0.1% External 07/19/2023 Active hydrOXYzine HCl 10 MG 1 tablet as needed Orally Once a day; Duration: 30 days Active Atenolol 100 MG TAKE 1 TABLET BY MOUTH EVERY DAY Oral; Duration: 90 Days Active Iron 28 MG 1 tablet Orally Three times a Week Active Vitamin D Active clonazePAM 0.5 MG 1 tablet twice a day, and take 1/2 tab once a day as needed Oral; Duration: 30 days cancel previous Rx on Clonazepam- updated script 09/13/2024 Active Clobetasol Propionate 0.05 % PLEASE SEE ATTACHED FOR DETAILED DIRECTIONS External; Duration: 30 Days Active Lansoprazole 30 MG TAKE 1 CAPSULE BY MOUTH EVERY DAY Oral; Duration: 90 Days Active Immunizations Vaccine Route Administration [...] Risk Notes Problem Moderate recurrent major depression (22629922) Major depressive disorder, recurrent, moderate (F33.1) 07/19/19 24 Active confirmed Problem Generalized anxiety disorder (68504194) Generalized anxiety disorder (F41.1) 07/19/19 24 Active confirmed Problem Essential hypertension (32259037) Essential (primary) hypertension (I10) 07/19/19 24 Active confirmed Problem Atopic dermatitis (83152395) Other atopic dermatitis (L20.89) Active confirmed Problem Memory impairment (589910862) Memory impairment (R41.3) Active confirmed Problem Mixed hyperlipidemia (119132503) Mixed hyperlipidemia (E78.2) 01/15/20 23 Active confirmed Problem Gastroesophageal reflux disease (612636597) GERD (gastroesophageal reflux disease) (K21.9) 03/26/19 24 Active confirmed Problem Esophageal stricture (36008698) Esophageal stricture (K22.2) 03/26/19 24 Active confirmed Vital Signs Heart Rate 52 /min 09/06/2024 Height-cm 161.29 cm 09/06/2024 Blood pressure diastolic 75 mm Hg 09/06/2024 Weight-kg 43.09 kg 09/06/2024 Height 63.50 in 09/06/2024 Blood pressure systolic 139 mm Hg 09/06/2024 Weight 95 lbs 09/06/2024 BMI 16.56 kg/m2 09/06/2024 Encounters Encounter Location Date Provider Diagnosis [facility] [address] [facility] [address] [address] 09/20/2023 Cesar Gloria Major depressive disorder, recurrent, moderate F33.1 ; Generalized anxiety disorder F41.1 and Essential (primary) hypertension I10 [place] [address] [place] [address] 09/29/2023 Angela Saritha Major depressive disorder, recurrent, moderate F33.1 and Generalized anxiety disorder F41.1 [facility], [place] [address] [place] [address] 10/12/2023 Angela Saritha Major depressive disorder, recurrent, moderate F33.1 and Generalized anxiety disorder F41.1 [facility] [address] [place] [address] 10/18/2023 Cesar Gloria Major depressive disorder, recurrent, moderate F33.1 ; Generalized anxiety disorder F41.1 and Essential (primary) hypertension I10 [place] [address] [place] [address] 10/26/2023 Angela Saritha Major depressive disorder, recurrent, moderate F33.1 and Generalized anxiety disorder F41.1 [place] [address] [place] [address] 11/24/2023 Angela Saritha Major depressive disorder, recurrent, moderate F33.1 and Generalized anxiety disorder F41.1 [place] [address] [place] [address] 01/10/2024 Cesar Gloria Major depressive disorder, recurrent, moderate F33.1 ; Generalized anxiety disorder F41.1 ; Essential (primary) hypertension I10 and Mixed hyperlipidemia E78.2 [place] [address] [place] [address] 04/10/2024 Cesar Gloria Major depressive disorder, recurrent, moderate F33.1 ; Esophageal stricture K22.2 ; Generalized anxiety disorder F41.1 ; Essential (primary) hypertension I10 ; Mixed hyperlipidemia E78.2 ; Benign essential HTN I10 and KEYANNA (generalized anxiety disorder) F41.1 [facility], [facility] [address] [place] [address] 07/07/2024 Cesar Gloria Major depressive disorder, recurrent, moderate F33.1 ; Generalized anxiety disorder F41.1 ; Essential (primary) hypertension I10 ; Mixed hyperlipidemia E78.2 ; Negative depression screening Z13.31 ; Benign essential HTN I10 ; Encounter for screening for cardiovascular disorders Z13.6 ; Dietary counseling and surveillance Z71.3 and Memory impairment R41.[address] [address] 08/16/2024 Cesar Castro Memory impairment R4 1.[address] [address] 09/06/2024 Cesar Gloria Major depressive disorder, recurrent, moderate F33.1 ; Generalized anxiety disorder F41.1 ; Essential (primary) hypertension I10 ; Other atopic dermatitis L20.89 and Dermatitis, unspecified L30.[address] [address] 05/01/2024 Cesar Castro Generalized anxiety disorder F41.[address] [address] 09/13/2024 Linda James Generalized anxiety disorder F41.1 Assessments Encounter Date Diagnosis (ICD Code) Assessment Notes Treatment Notes Treatment Clinical Notes Section Notes 08/16/2024 Memory impairment (ICD-10 - R41.3) Interpretation of Results: This individual, aged 73 and part of the female comparative group aged 65 to 74, completed a cognitive assessment consisting of six tasks. Two results were marked as potentially invalid and should be interpreted with caution. The valid results provide insight into specific areas of cognitive strength and weakness. [place] Findings: Verbal Short-Term Memory (Digit Span): Score: 49 This result is well below average and indicates significant difficulty with holding and repeating verbal information over short durations. This may impact everyday tasks such as following spoken instructions, recalling lists, or mental arithmetic. Visuospatial Working Memory (Number Ladder): Score: 99 Performance was within the average range, suggesting adequate ability to temporarily retain and manipulate spatial information. Response Inhibition (Double Trouble): Score: 90 This falls at the lower edge of the average range. There may be mild challenges with resisting distractions or suppressing automatic responses under cognitive load. Mental Rotation (Rotations): Score: 87 This is on the threshold of below average, reflecting potential difficulty with visualizing and manipulating objects in space, which can affect spatial reasoning and navigation. Attention (Feature Match) and Episodic Memory (Paired Associates): Results flagged as potentially invalid These scores cannot be reliably interpreted but should be re-evaluated if concerns persist. Summary: The primary area of concern is verbal short-term memory, which is notably impaired. Visuospatial skills and response inhibition are generally preserved. Mild inefficiencies in mental rotation may also affect some daily tasks. Attention and episodic memory results require confirmation. Non-Pharmacologic Recommendations: Memory Strategy Training: Use chunking, association, and verbal rehearsal to enhance recall. Employ mnemonic devices or repetition for important verbal information. Environmental Supports: Rely on visual reminders, checklists, or calendars to reduce reliance on verbal memory. Label items and maintain a consistent layout in home or work environments. Cognitive Exercises: Engage in activities that stimulate memory and attention, such as crosswords, word recall games, and verbal memory apps designed for older adults. Speech-Language Pathology Referral: Consider targeted evaluation and support for verbal memory and auditory processing from a licensed speech-language pathologist. Mindfulness and Attention Reinforcement: Practice mindfulness-based attention training to improve focus and reduce cognitive load, especially when processing verbal information. Physical Activity: Participate in regular walking, yoga, or other moderate aerobic activities to support cognitive resilience and executive function. Sleep and Hearing Check: Ensure optimal sleep quality and rule out hearing issues, which can mimic or exacerbate memory problems. These strategies can help maintain functional independence and support memory performance in daily life. Follow-up assessment is advised if concerns about episodic memory or attention persist. 09/06/2024 Major depressive disorder, recurrent, moderate (ICD-10 - F33.1) 09/06/2024 Generalized anxiety disorder (ICD-10 - F41.1) Patient reports anxiety contributing to high blood pressure. - Continue clonazepam with an additional half tablet as needed. - Monitor anxiety levels and adjust medication as necessary. 05/01/2024 Generalized anxiety disorder (ICD-10 - F41.1) 11/24/2023 Major depressive disorder, recurrent, moderate (ICD-10 - F33.1) 04/10/2024 Esophageal stricture (ICD-10 - K22.2) 07/07/2024 Major depressive disorder, recurrent, moderate (ICD-10 - F33.1) 07/07/2024 Generalized anxiety disorder (ICD-10 - F41.1) 09/13/2024 Generalized anxiety disorder (ICD-10 - F41.1) 09/20/2023 Major depressive disorder, recurrent, moderate (ICD-10 - F33.1) Post-extraction Hemorrhage and Anemia - Assessment: Patient experienced significant bleeding and anemia following dental extraction while on Plavix and aspirin. Hemoglobin dropped to 7, and hematocrit was half of the normal value. - Plan: Continue monitoring hemoglobin and hematocrit levels. Encourage the patient to follow up with their primary care physician and boiler installer regarding the use of Plavix and aspirin. Advise the patient to avoid strenuous activities until blood levels improve, as recommended by their heart doctor. Concussion and Cervical/Thoraci c Spine Bulging Discs - Assessment: Patient sustained a concussion and bulging discs in the C-spine and thoracic spine after falling and hitting their head in the ER bathroom. - Plan: Continue physical therapy at [facility] for the back and neck. Monitor [...] (27 mg daily) and follow up with superintendent of generation in December. - Patient should avoid strenuous activities until hemoglobin levels normalize. - Production Analyst mentioned possibility of iron infusion but will reassess in December. Shortness of Breath - Assessment: Patient reports improvement in shortness of breath. - Plan: - Monitor symptoms and continue to follow up with superintendent of generation. - Production Analyst estimates it may take three more months [...] Encourage patient to take dog to the ironing machine operator for evaluation and treatment as needed. Mental [...] (27 mg daily) and follow up with superintendent of generation in December. - Patient should avoid strenuous activities until hemoglobin levels normalize. - Production Analyst mentioned possibility of iron infusion but will reassess in December. Shortness of Breath - Assessment: Patient reports improvement in shortness of breath. - Plan: - Monitor symptoms and continue to follow up with superintendent of generation. - Production Analyst estimates it may take three more months [...] Encourage patient to take dog to the ironing machine operator for evaluation and treatment as needed. Mental [...] and iron levels were also low. Recent superintendent of generation appointment scheduled for further evaluation. - Plan: Await results of upcoming superintendent of generation appointment and blood work scheduled for Wednesday. [...] a local physical therapy center, such as [facility]. Monitor progress in therapy and reassess the need for further intervention, such as MRI or potential surgery, once insurance coverage is confirmed. 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 - Plan: Evaluate the severity of [...] for various treatments. Has consulted with a multiple effect evaporator operator and provided extensive medical records for review. [...] disorder, recurrent, moderate (ICD-10 - F33.1) 04/10/2024 Generalized anxiety disorder (ICD-10 - F41.1) 01/10/2024 Generalized anxiety disorder (ICD-10 - F41.1) Anemia and Recent Blood Loss - Assessment: Patient reports a history of significant blood loss and anemia. Hemoglobin was 7 point something, almost cut in half from 14, and iron levels were also low. Recent superintendent of generation appointment scheduled for further evaluation. - Plan: Await results of upcoming superintendent of generation appointment and blood work scheduled for Wednesday. [...] a local physical therapy center, such as [facility]. Monitor progress in therapy and reassess the need for further intervention, such as MRI or potential surgery, once insurance coverage is confirmed. 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 - Plan: Evaluate the severity of [...] for various treatments. Has consulted with a multiple effect evaporator operator and provided extensive medical records for review. [...] (27 mg daily) and follow up with superintendent of generation in December. - Patient should avoid strenuous activities until hemoglobin levels normalize. - Production Analyst mentioned possibility of iron infusion but will reassess in December. Shortness of Breath - Assessment: Patient reports improvement in shortness of breath. - Plan: - Monitor symptoms and continue to follow up with superintendent of generation. - Production Analyst estimates it may take three more months [...] Encourage patient to take dog to the ironing machine operator for evaluation and treatment as needed. Mental [...] up with their primary care physician and boiler installer regarding the use of Plavix and aspirin. Advise the patient to avoid strenuous activities until blood levels improve, as recommended by their heart doctor. Concussion and Cervical/Thoraci c Spine Bulging Discs - Assessment: Patient sustained a concussion and bulging discs in the C-spine and thoracic spine after falling and hitting their head in the ER bathroom. - Plan: Continue physical therapy at [facility] for the back and neck. Monitor [...] appointments to accommodate the patient's therapy schedule. 07/07/2024 Essential (primary) hypertension (ICD-10 - I10) 11/24/2023 Generalized anxiety disorder (ICD-10 - F41.1) 09/06/2024 Essential (primary) hypertension (ICD-10 - I10) Patient reports high blood pressure readings due to stress. - Monitor blood pressure regularly. - Consider lifestyle changes to reduce stress. 09/06/2024 Other atopic dermatitis (ICD-10 - L20.89) Patient frustrated by lack of biopsy. Patient hesitant to take antihistamines due to adverse effects. - Discuss the use of XYZAL with pharmacist. - Consider alternative treatments if XYZAL is not suitable. 07/07/2024 Mixed hyperlipidemia (ICD-10 - E78.2) 09/20/2023 Essential (primary) hypertension (ICD-10 - I10) Post-extraction Hemorrhage and Anemia - Assessment: Patient experienced significant bleeding and anemia following dental extraction while on Plavix and aspirin. Hemoglobin dropped to 7, and hematocrit was half of the normal value. - Plan: Continue monitoring hemoglobin and hematocrit levels. Encourage the patient to follow up with their primary care physician and boiler installer regarding the use of Plavix and aspirin. Advise the patient to avoid strenuous activities until blood levels improve, as recommended by their heart doctor. Concussion and Cervical/Thoraci c Spine Bulging Discs - Assessment: Patient sustained a concussion and bulging discs in the C-spine and thoracic spine after falling and hitting their head in the ER bathroom. - Plan: Continue physical therapy at [facility] for the back and neck. Monitor [...] and iron levels were also low. Recent superintendent of generation appointment scheduled for further evaluation. - Plan: Await results of upcoming superintendent of generation appointment and blood work scheduled for Wednesday. [...] a local physical therapy center, such as [place]. Monitor progress in therapy and reassess the need for further intervention, such as MRI or potential surgery, once insurance coverage is confirmed. 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 - Plan: Evaluate the severity of [...] for various treatments. Has consulted with a multiple effect evaporator operator and provided extensive medical records for review. [...] 04/10/2024 Essential (primary) hypertension (ICD-10 - I10) 04/10/2024 Mixed hyperlipidemia (ICD-10 - E78.2) 07/07/2024 Negative depression screening (ICD-10 - Z13.31) 09/06/2024 Dermatitis, unspecified (ICD-10 - L30.9) Patient reports skin burning from topical corticosteroids. - Use topical corticosteroids cautiously. - Monitor skin condition and adjust treatment as needed. 01/10/2024 Mixed hyperlipidemia (ICD-10 - E78.2) Anemia and Recent Blood Loss - Assessment: Patient reports a history of significant blood loss and anemia. Hemoglobin was 7 point something, almost cut in half from 14, and iron levels were also low. Recent superintendent of generation appointment scheduled for further evaluation. - Plan: Await results of upcoming superintendent of generation appointment and blood work scheduled for Wednesday. [...] a local physical therapy center, such as [place]. Monitor progress in therapy and reassess the need for further intervention, such as MRI or potential surgery, once insurance coverage is confirmed. 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 - Plan: Evaluate the severity of [...] for various treatments. Has consulted with a multiple effect evaporator operator and provided extensive medical records for review. [...] to address potential underlying causes of fatigue. 07/07/2024 Benign essential HTN (ICD-10 - I10) 04/10/2024 Benign essential HTN (ICD-10 - I10) 07/07/2024 Encounter for screening for cardiovascular disorders (ICD-10 - Z13.6) 07/07/2024 Dietary counseling and surveillance (ICD-10 - Z71.3) 04/10/2024 KEYANNA (generalized anxiety disorder) (ICD-10 - F41.1) 07/07/2024 Memory impairment (ICD-10 - R41.3) 10/12/2023 Other Client is riazisabel isabel struggling with anemia. She did see a superintendent of generation and additional tests have been run and [...] 11/24/2023 Other Client reports she contacted an erisa attorney to address some of the medical [...] a healthy diet. - Follow up with pump operator byproducts as needed. Iron Deficiency Anemia - Plan: - Continue iron supplementation as prescribed by superintendent of generation. - Monitor for any side effects. - Encourage the patient to consume iron-rich foods. - Follow up with superintendent of generation as needed. History of Heart Attack and Headaches - Plan: - Continue monitoring for any cardiac symptoms or recurrence of headaches. - Encourage the patient to maintain a heart-healthy lifestyle. - Follow up with boiler installer in June. Anxiety - Plan: - Continue monitoring anxiety levels. - Consider referral to a mental health professional if symptoms worsen or become unmanageable. - Encourage the patient to practice stress-reduction techniques and maintain a healthy lifestyle. Financial Stress - Plan: - Encourage the patient to seek appropriate legal and financial advice. - Offer referral to a executive secretary social welfare or financial counselor if needed. Medication Management [...] irritants such as shampoo or laundry detergent. Server Assistant and rotary rig engine operator have been consulted twice each. Prednisone was recommended but patient declined due to anxiety concerns. 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 Plan: - Continue follow-up with boiler installer as scheduled - Patient to obtain results of recent cardiac tests at next cardiology appointment Disclaimer: This note has been transcribed using speech recognition software and serves as a reflection of the patient's visit. While efforts have been made to ensure accuracy, there may be errors, including foam rubber molder inaccuracies and misspellings of medication names. This document should not be considered a verbatim record, and any discrepancies should be verified with the provider. 09/06/2024 Other Patient reports recent weight loss and fluctuating appetite. - Monitor weight and nutritional intake. - Consider dietary counseling if weight loss persists. Plan Of Treatment Pending Test Test Name Order Date UDT 07/07/2024 Next Appt Details Provider Name:Cesar Castro , 12/06/2024 10:45:00 AM, [address], [address], [place], [address], Insurance Providers Payer Name Payer Address Payer Phone Subscriber Number Group Number Insured Name Patient Relationship to Insured Coverage Start Date Coverage End Date [employer] Medicare Replacement/ Advantage - Hmo [address] [place] [phone] [id number] ALESSIA CHEUNG Self - patient is the insured Medical (General) History Medical History History ICD Code Problems: Benign essential hypertension Chest pain Coronary arteriosclerosis Gastroesophageal reflux disease Generalized anxiety disorder Loss of appetite Mixed hyperlipidemia Moderate recurrent major depression , Surgical History Surgery Date(Month/Year) Tonsilectomy/adenoids 03/01/1960 Removal of gallbladder (26038) 4 Appendectomy (74161) 03/01/2007
--- OUTSIDE RECORDS SUMMARY | 2024-09-18 13:02 | XMS_ITS | Encounter Summary ---
Author Organization [facility] Address [facility] [place] [address] Care Team Providers Care Data Center Consultant Name Role Phone Salhoney Calixto Coni DO Primary Care Provider + Nicola Castaneda DO Primary Care Provider [phone] Encounter Details Date Type Department Care Team (Late st Contact Info) Description 04/16/2023 Abstract [facility] [address] Jayy Reynolds MA Social History Tobacco Use Types Packs/Day Years Used Date Smoking Tobacco: Former Cigarettes 1.5 15 0 03/01/1973 - 03/01/1988 Smokeless Tobacco: Never Alcohol Use Standard Drinks/Week Comments Never 0 [...] 12/24/2022 How often do you attend chur ch or baptist services? More than 4 times per year 12/24/2022 Do you belong to any clubs o r organizations such as restorationism groups, unions, fraternal or athletic groups, or [...] Recorded Patient Health Questionnaire-2 Score 0 [facility]2023 [facility] Answer Date Recorded [...] place to sleep or slept in a intermediate (including now)? No 12/24/2022 Comments No Sex and Gender Information Value Date Recorded Sex Assigned at Female 05/19/2024 9:13 AM CDT Legal Sex Female 9:52 PM CDT Gender Identity Not on file Sexual Orientation Not on file documented as of this encounter Functional Status * Are you deaf or do you have serious difficulty hearing Answer Date of Assessment Author Status No 12/24/2022 11:15 AM Nita Bradshaw RN Active * Are you blind or do you have serious difficulty seeing, even when wearing glasses? Answer Date of Assessment Author Status No 12/24/2022 11:15 AM Nita Bradshaw RN Active * Do you have serious difficulty walking or climbing stairs? Answer Date of Assessment Author Status No 12/24/2022 11:15 AM Nita Bradshaw RN Active * Do you have difficulty dressing or bathing? Answer Date of Assessment Author Status No 12/24/2022 11:15 AM Nita Bradshaw RN Active * Because of a physical, mental, or emotional condition, do you have difficulty doing errands alone such as visiting a doctor's office or shopping? Answer Date of Assessment Author Status No 12/24/2022 11:15 AM Nita Bradshaw RN Active documented as of this encounter Mental Status * Because of a physical, mental, or emotional condition, do you have serious difficulty concentrating, remembering, or making decisions? Answer Entry Date Author Status No 12/24/2022 11:15 AM CDT Nita Bruner RN Active documented in this encounter Plan of Treatment Upcoming Encounters Date Type Department Care Team (Late st Contact Info) Description 03/27/2025 11:00 AM GUEST SERVICES REPRESENTATIVE Office Visit [facility], [address] [place], [place] [id number] Jorge Riley MD [facility]. [address] [place], [place] [id number] documented as of this encounter Goals Goal Patient Goal Type Associated Problems Recent Progress Patient-Stated? Author Patient will return to prior living situation and remain independent in ADLs upon discharge from hospital Lifestyle No Nettie Rogers LSW documented as of this encounter Procedures Procedure Name Priority Date/Time Associated Diagnosis Comments LIPID PANEL Routine 04/12/2023 HEPATIC FUNCTION PANEL Routine 04/12/2023 documented in this encounter Results * LIPID PANEL (04/12/2023) CHOLESTEROL 146 HDL 60 TRIGLYCERIDES 86 DIRECT LDL 71 04/12/2023 us Default History Genericprovider LABORATORY Final Result * HEPATIC FUNCTION PANEL (04/12/2023) ALBUMIN S/P/B 4.1 3.5 - 5.0 ALKALINE PHOSPHATASE S/P/B 91 ALT 59 AST 59 BILIRUBIN TOTAL S/P/B 1.2 TOTAL PROTEIN S/P/B 7.0 04/12/2023 us Default History Genericprovider LABORATORY Final Result documented in this encounter Visit Diagnoses Not on filedocumented in this encounter Care Teams Data Center Consultant Relationship Specialty Start Date End Date Calixto García DO [address] [place] [id number] PCP - General FAMILY PRACTICE 03/03/23 04/26/23 Nicola Castaneda DO [id number] [address] [address] PCP - General INTERNAL MEDICINE 04/27/23 documented as of this encounter
--- OUTSIDE RECORDS SUMMARY | 2024-09-18 13:03 | XMS_ITS | Clinical Summary ---
Author Organization [facility] Address [address] [address] Care Team Providers Care Tank Truck Operator Name Role Phone Nicola Castaneda Primary Care Provider Allergies Active Allergy Reactions Criticality Noted Date Comments Clindamycin Nausea and Vomiting Low 10/08/2023 Clonidine Nausea and Vomiting Low 12/24/2022 Iodine Nausea and Vomiting Low 05/25/2023 She is unsure if allergic Midazolam Nausea and Vomiting Low 05/25/2023 She is unsure if she is allergic to this Medications atenoloL (TENORMIN) 100 mg tablet TAKE 1 TABLET BY MOUTH EVERY DAY Oral for 90 Days 09/24/2023 Active clonazePAM (KlonoPIN RAPID DISSOLVE) 0.5 mg Tablet, Rapid Dissolve Take 0.25 mg by mouth. Active aspirin (MARY CHEWABLE) 81 mg Tablet, Chewable Take 81 mg by mouth daily. 12/26/2022 Active Cholecalciferol , Vitamin D3, 75 mcg (3,000 unit) Tablet Take 75 mcg by mouth daily. Active cyanocobalamin (VITAMIN B-12) 250 mcg Tablet ORAL 07/19/2023 Acti ve ferrous fumarate 89 mg (29 mg iron) Tablet 89 mg. Active lansoprazole (PREVACID) 30 mg Capsule, Delayed Release(E.C.) Take 30 mg by mouth daily. 04/20/2023 Active clobetasoL (TEMOVATE) 0.05 % Solution Apply to affected area 2 times daily. Active calcium as carbonate (TUMS) 500 mg (200 mg elemental) Tablet, Chewable Take 500 mg by mouth daily. Active Active Problems Problem Noted Date Diagnosed Date Anxiety 03/26/2023 Esophageal stricture 03/26/2023 GERD (gastroesophageal reflux disease) Benign essential HTN 01/14/2023 Mixed hyperlipidemia 01/14/2023 Coronary artery disease invo lving [place] coronary artery of [place] heart without angina pectoris 01/14/2023 Chest pain 12/24/2022 Encounters Date Type Department Care Team Description 09/13/2024 External Device Data ST[facility] ABSTRACTION Provider, Abstract 09/12/2024 External Device Data [facility] ABSTRACTION Provider, Abstract 08/15/2024 External Device Data [facility] ABSTRACTION Provider, Abstract 07/20/2024 External Device Data [facility] ABSTRACTION Provider, Abstract 07/19/2024 External Device Data [facility] ABSTRACTION Provider, Abstract 07/18/2024 External Device Data [facility] ABSTRACTION Provider, Abstract from Last 3 Months Family History Medical History Relation Name Comments Breast Cancer Sister Relation Name Status Comments Sister Social History Tobacco Use Types Packs/Day Years Used Date Smoking Tobacco: Former Cigarettes 1 57.6 S tarted: 1968 Smokeless Tobacco: Never Tobacco Cessation:Counseling Given: Not Answered Alcohol Use Standard Drinks/Week Comments Never 0 (1 standard drink = 0.6 oz pur e alcohol) Comments Unknown Sex and Gender Information Value Date Recorded Sex Assigned at Not on file Legal Sex Female 9:25 AM CDT Gender Identity Not on file Sexual Orientation Not on file Last Filed Vital Signs Vital Sign Reading Time Taken Comments Blood Pressure 193/87 01/14/2024 12:32 PM SUCTION DRUM DRIER OPERATOR Pulse 61 01/14/2024 12:28 PM SUCTION DRUM DRIER OPERATOR Temperature 36.7 C (98 F) 01/14/2024 12:28 PM SUCTION DRUM DRIER OPERATOR Respiratory Rate 15 01/14/2024 12:28 PM SUCTION DRUM DRIER OPERATOR Oxygen Saturation 98% 01/14/2024 12:28 PM SUCTION DRUM DRIER OPERATOR Inhaled Oxygen Concentration - - Weight 43.6 kg (96 lb 3.2 oz) 01/14/2024 12:28 P M SUCTION DRUM DRIER OPERATOR Height - - Body Mass Index - - Plan of Treatment Upcoming Encounters Date Type Department Care Team (Late st Contact Info) Description 10/03/2024 1:15 PM CDT Office Visit [facility] - [address] [place] [address] Deshaun Rosa MD [address] [facility] [address] [place] [address] Health Maintenance Due Date Last Done Comments DTAP/TDAP/TD VACCINES (1 - Tdap) 10/02/1971 COLORECTAL SCREENING 1997 Colorectal Cancer Screening 1997 FIT-DNA Q 3 years 1997 FIT/FOBT Q 1 year 1997 Flex Sig/CT Colonography Q 5 years 1997 PNEUMOCOCCAL VACCINE 50+ YEA RS (1 of 1 - PCV) 2002 ZOSTER VACCINE (1 of 2) 2002 RSV VACCINE (60+ or ) (1 - Risk 60-74 years 1-dose series) 2012 OSTEOPOROSIS SCREENING 2017 BREAST CANCER SCREENING 03/24/2022 03/24/19, 03/24/2021, 09/27/2018, Additional history exists INFLUENZA VACCINE (#1) 2024 Insurance [facility] Care Teams Tank Truck Operator Relationship Specialty Start Date End Date Nicola Castaneda DO [address] [facility] [address] [place] [address] PCP - General Internal Medicine 01/25/24
[2024-09-18 14:26] LABS: Alanine Aminotransferase 15 U/L (6-35); Albumin Level 3.9 g/dL (3.5-5.1); Alkaline Phosphatase 87 U/L (38-126); Anion Gap 6 mmol/L (4-12); Aspartate Amino Transferase 31 U/L (14-36); Bilirubin,Total 0.5 mg/dL (0.2-1.3); Blood Urea Nitrogen 8 mg/dL (7-17); CRP < 0.5 mg/dL (<1.0); Calcium 9.3 mg/dL (8.4-10.2); Carbon Dioxide 32 mmol/L (22-30); Chloride 99 mmol/L (98-107); Estimated Glomerular Filt Rate > 60; Glucose 89 mg/dL (65-110); Potassium 4.4 mmol/L (3.4-5.0); Sodium 137 mmol/L (137-145); Total Protein 7.0 g/dL (6.3-8.2)
[2024-09-18 15:27] LABS: Hematocrit 38.8 % (37.0-47.0); Hemoglobin 13.3 g/dL (12.0-15.0); Immature Granulocyte Percent A 0.4 % (0-0.5); Lymphocytes Absolute Auto 1.59 K/mm3 (0.9-3.2); Mean Corpuscular HGB Conc 34.3 g/dl (32-36); Mean Corpuscular Hemoglobin 30.4 pg (26-34); Mean Corpuscular Volume 88.8 fl (80-100); Nucleated Red Blood Cells Absolute Auto 0.000 K/mm3 (0.0-0.012); Nucleated Red Blood Cells Perc 0.0 % (0.0-0.2); Platelet Count Result 299 k/mm3 (150-375); Red Blood Count 4.37 M/mm3 (4.2-5.4); White Blood Count 7.3 K/mm3 (4.5-10.0)
[2024-09-19 11:09] LABS: Thyroid Stimulating Hormone 3.510 uIU/mL (0.465-4.680)
[2024-09-19 12:27] LABS: Free T3 3.82 pg/mL (2.45-5.93); Free T4 Free Thyroxine 1.33 ng/dL (0.78-2.19)
== END 2024-09-18 12:56 | disposition home or self-care (01) ==
PROVIDERS: Registered Nurse; PCP Clinical Nurse Specialist; Referring Provider Nurse Practitioner
DX: L29.89 Other pruritus (principal); F41.9 Anxiety disorder, unspecified
CPT/HCPCS: 36415; 80053; 82248; 84439; 84443; 84481; 85025; 85652; 86140; 86431

== ENCOUNTER 2024-09-27 11:29 | Outpatient (CLI) | payer OTHER, SELFPAY ==
[2024-09-27 11:47] LABS: Hematocrit 38.9 % (37.0-47.0); Hemoglobin 13.4 g/dL (12.0-15.0); Mean Corpuscular HGB Conc 34.4 g/dl (32-36); Mean Corpuscular Hemoglobin 31.0 pg (26-34); Mean Corpuscular Volume 90.0 fl (80-100); Platelet Count Result 346 k/mm3 (150-375); Red Blood Count 4.32 M/mm3 (4.2-5.4); White Blood Count 8.0 K/mm3 (4.5-10.0)
--- OUTSIDE RECORDS SUMMARY | 2024-09-27 11:54 | XMS_ITS | Patient Health Record ---
Author Organization [facility] Address [address] [place] [address] Care Team Providers Care Valve Liner Rubber Name Role Phone Nicola Castaneda DO Primary Care Provider Cesar Esquivel Unavailable [phone] Linda James Unavailable [phone] Angela Melara Unavailable [phone] Allergies Allergen (clinical drug ingredient) Drug/Non Drug Allergy documented on EMR Reaction Allergy Type Onset Date Status Midazolam Unknown Drug Allergy Active clonidine cloNIDine Unknown Drug Allergy 07/19/2023 Active Results Component Value Reference Range Notes Benzodiazepines Reviewed date:09/08/2024 09:03:44 PM Interpretation: Performing Lab:[address] [place] [address], [address] [place] [address], Director - [id number] Notes/Report: An exception occurred while processing this report and so it has incomplete data. Please contact [employer] for assistance. Not Medicated Consistent Not [...] Not Medicated Consistent Not Medicated Consistent Specific Sigel 1.004 1.003 - 1.030 pH 6.1 3.0 - 10.9 Oxidants -6 200 g/mL Creatinine 28.5 20.0 - 300.0 mg/dL UDT Reviewed date:04/10/2024 02:27:13 PM Interpretation: Performing Lab: Notes/Report: THC N 0 - 50 ng/ml Cocaine N 0 - 300 ng/ml Amphetamine N 0 - 1000 ng/ml Buprenorphine (BUP) N 0 - 10 ng/ml Secobarbital (Bar) N 0 - 300 ng/ml Oxazepam (BZO) N 0 - 300 ng/ml 4-xvookyksle-2,2-agrlzlpl-8, 3-diphe nylpyrrolidine (EDDP) N 0 - 300 ng/ml Methamphetamine (MET) N 0 - 1000 ng/ml Methylenedioxymethamphetamin e (MDMA) N 0 - 500 ng/ml Morphine (MOP 300/[id number]) N 0 - 300 ng/ml Methadone (MTD) [...] Oxazepam (BZO) n 0 - 300 ng/ml 4-zknzstjzhs-1,4-hmizreie-9, 3-diphe nylpyrrolidine (EDDP) n 0 - 300 ng/ml Methamphetamine (MET) n 0 - 1000 ng/ml Methylenedioxymethamphetamin e (MDMA) n 0 - 500 ng/ml Morphine (MOP 300/[id number]) n 0 - 300 ng/ml Methadone (MTD) n 0 - 300 ng/ml Phencyclidine (PCP) n 0 - 25 ng/ml Nortriptyline (TCA) n 0 - 1000 ng/ml Oxycodone n 0 - 300 ng/ml x n 0 - 300 ng/ml DRUG MONITOR, ТАТЬЯНА, SUSIE, AZUL NE ([id number]) Reviewed date:04/11/2024 02:56:47 PM Interpretation: Performing Lab:CB, [facility] [id number] [facility] Byron Humphrey, Director - [address] [facility] Notes/Report: FASTING: NO Alphahydroxyalprazolam NEGATIVE <25 ng/mL [...] analytical performance characteristics have been determined by [facility] [employer] [facility]. It has not been cleared or approved by the FDA. This assay has been validated pursuant to the CLIA regulations and is used for clinical purposes. Healthcare Providers needing Interpretation assistance, please contact us at [phone] ( ) M-F, 8am to 10pm EST UDT Reviewed date:09/06/2024 11:13:25 AM Interpretation: Performing Lab: Notes/Report: THC N 0 - 50 ng/ml Cocaine N 0 - 300 ng/ml Amphetamine N 0 - 1000 ng/ml Buprenorphine (BUP) N 0 - 10 ng/ml Secobarbital (Bar) N 0 - 300 ng/ml Oxazepam (BZO) N 0 - 300 ng/ml 4-tybygsvvrn-5,7-caoyowdo-1, 3-diphe nylpyrrolidine (EDDP) N 0 - 300 ng/ml Methamphetamine (MET) N 0 - 1000 ng/ml Methylenedioxymethamphetamin e (MDMA) N 0 - 500 ng/ml Morphine (MOP 300/[id number]) N 0 - 300 ng/ml Methadone (MTD) [...] Risk Notes Problem Moderate recurrent major depression (25413433) Major depressive disorder, recurrent, moderate (F33.1) 07/19/19 24 Active confirmed Problem Generalized anxiety disorder (90701376) Generalized anxiety disorder (F41.1) 07/19/19 24 Active confirmed Problem Essential hypertension (12016145) Essential (primary) hypertension (I10) 07/19/19 24 Active confirmed Problem Atopic dermatitis (19179678) Other atopic dermatitis (L20.89) Active confirmed Problem Memory impairment (146516966) Memory impairment (R41.3) Active confirmed Problem Mixed hyperlipidemia (296914602) Mixed hyperlipidemia (E78.2) 01/15/20 23 Active confirmed Problem Gastroesophageal reflux disease (947693211) GERD (gastroesophageal reflux disease) (K21.9) 03/26/19 24 Active confirmed Problem Esophageal stricture (52557669) Esophageal stricture (K22.2) 03/26/19 24 Active confirmed Vital Signs Heart Rate 52 /min 09/06/2024 Height-cm 161.29 cm 09/06/2024 Blood pressure diastolic 75 mm Hg 09/06/2024 Weight-kg 43.09 kg 09/06/2024 Height 63.50 in 09/06/2024 Blood pressure systolic 139 mm Hg 09/06/2024 Weight 95 lbs 09/06/2024 BMI 16.56 kg/m2 09/06/2024 Encounters Encounter Location Date Provider Diagnosis [facility] [address] [facility] [address] [address] 09/29/2023 Angela Saritha Major depressive disorder, recurrent, moderate F33.1 and Generalized anxiety disorder F41.1 [place] [address] [facility] [address] [address] 10/12/2023 Angela Saritha Major depressive disorder, recurrent, moderate F33.1 and Generalized anxiety disorder F41.1 [facility] [address] [facility] [address] [place] [address] 10/18/2023 Cesar Gloria Major depressive disorder, recurrent, moderate F33.1 ; Generalized anxiety disorder F41.1 and Essential (primary) hypertension I10 [facility] [address] [facility] [address] [place] [address] 10/26/2023 Angela Saritha Major depressive disorder, recurrent, moderate F33.1 and Generalized anxiety disorder F41.1 [facility] [address] [facility] 162 [facility] 201 [place] [address] 11/24/2023 Angela Saritha Major depressive disorder, recurrent, moderate F33.1 and Generalized anxiety disorder F41.[address] [facility] [address] [place] [address] 01/10/2024 Cesar Gloria Major depressive disorder, recurrent, moderate F33.1 ; Generalized anxiety disorder F41.1 ; Essential (primary) hypertension I10 and Mixed hyperlipidemia E78.[address] [facility] [address] [place] [address] 04/10/2024 Cesar Gloria Major depressive disorder, recurrent, moderate F33.1 ; Esophageal stricture K22.2 ; Generalized anxiety disorder F41.1 ; Essential (primary) hypertension I10 ; Mixed hyperlipidemia E78.2 ; Benign essential HTN I10 and KEYANNA (generalized anxiety disorder) F41.[address] [address] 07/07/2024 Cesar Gloria Major depressive disorder, recurrent, moderate F33.1 ; Generalized anxiety disorder F41.1 ; Essential (primary) hypertension I10 ; Mixed hyperlipidemia E78.2 ; Negative depression screening Z13.31 ; Benign essential HTN I10 ; Encounter for screening for cardiovascular disorders Z13.6 ; Dietary counseling and surveillance Z71.3 and Memory impairment R41.[address] [address] 08/16/2024 Cesar Gloria Memory impairment R4 1.[address] [address] 09/06/2024 Cesar Gloria Major depressive disorder, recurrent, moderate F33.1 ; Generalized anxiety disorder F41.1 ; Essential (primary) hypertension I10 ; Other atopic dermatitis L20.89 and Dermatitis, unspecified L30.[address] [address] 05/01/2024 Cesar Gloria Generalized anxiety disorder F41.[address] [address] 09/13/2024 Linda James Generalized anxiety disorder F41.1 [...] 09/13/2024 Generalized anxiety disorder (ICD-10 - F41.1) 09/29/2023 Major depressive disorder, recurrent, moderate (ICD-10 - F33.1) 10/12/2023 Major depressive disorder, recurrent, moderate (ICD-10 - F33.1) 10/18/2023 Major depressive disorder, recurrent, moderate (ICD-10 - F33.1) Anemia - Assessment: Patient reports taking a full iron tablet and has a hemoglobin level of 11.9, with normal being 13. - Plan: - Continue iron supplementation (27 mg daily) and follow up with service loss control consultant in December. - Patient should avoid strenuous activities until hemoglobin levels normalize. - Produce Wrapper mentioned possibility of iron infusion but will reassess in December. Shortness of Breath - Assessment: Patient reports improvement in shortness of breath. - Plan: - Monitor symptoms and continue to follow up with service loss control consultant. - Produce Wrapper estimates it may take three more months [...] Encourage patient to take dog to the electric refrigerator preparer for evaluation and treatment as needed. Mental [...] (27 mg daily) and follow up with service loss control consultant in December. - Patient should avoid strenuous activities until hemoglobin levels normalize. - Produce Wrapper mentioned possibility of iron infusion but will reassess in December. Shortness of Breath - Assessment: Patient reports improvement in shortness of breath. - Plan: - Monitor symptoms and continue to follow up with service loss control consultant. - Produce Wrapper estimates it may take three more months [...] Encourage patient to take dog to the electric refrigerator preparer for evaluation and treatment as needed. Mental [...] and iron levels were also low. Recent service loss control consultant appointment scheduled for further evaluation. - Plan: Await results of upcoming service loss control consultant appointment and blood work scheduled for Wednesday. [...] a local physical therapy center, such as [facility]. Monitor progress in therapy and reassess the need for further intervention, such as MRI or potential surgery, once insurance coverage is confirmed. 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 - Plan: Evaluate the severity of [...] for various treatments. Has consulted with a managing principal and provided extensive medical records for review. [...] and iron levels were also low. Recent service loss control consultant appointment scheduled for further evaluation. - Plan: Await results of upcoming service loss control consultant appointment and blood work scheduled for Wednesday. [...] a local physical therapy center, such as [facility]. Monitor progress in therapy and reassess the need for further intervention, such as MRI or potential surgery, once insurance coverage is confirmed. 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 - Plan: Evaluate the severity of [...] for various treatments. Has consulted with a managing principal and provided extensive medical records for review. [...] (27 mg daily) and follow up with service loss control consultant in December. - Patient should avoid strenuous activities until hemoglobin levels normalize. - Produce Wrapper mentioned possibility of iron infusion but will reassess in December. Shortness of Breath - Assessment: Patient reports improvement in shortness of breath. - Plan: - Monitor symptoms and continue to follow up with service loss control consultant. - Produce Wrapper estimates it may take three more months [...] Encourage patient to take dog to the electric refrigerator preparer for evaluation and treatment as needed. Mental [...] explore strategies to set boundaries with them. 07/07/2024 Essential (primary) hypertension (ICD-10 - I10) [...] suitable. 07/07/2024 Mixed hyperlipidemia (ICD-10 - E78.2) 01/10/2024 Essential (primary) hypertension (ICD-10 - I10) Anemia and Recent Blood Loss - Assessment: Patient reports a history of significant blood loss and anemia. Hemoglobin was 7 point something, almost cut in half from 14, and iron levels were also low. Recent service loss control consultant appointment scheduled for further evaluation. - Plan: Await results of upcoming service loss control consultant appointment and blood work scheduled for Wednesday. [...] a local physical therapy center, such as [facility]. Monitor progress in therapy and reassess the need for further intervention, such as MRI or potential surgery, once insurance coverage is confirmed. 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 - Plan: Evaluate the severity of [...] for various treatments. Has consulted with a managing principal and provided extensive medical records for review. [...] and iron levels were also low. Recent service loss control consultant appointment scheduled for further evaluation. - Plan: Await results of upcoming service loss control consultant appointment and blood work scheduled for Wednesday. [...] a local physical therapy center, such as [facility]. Monitor progress in therapy and reassess the need for further intervention, such as MRI or potential surgery, once insurance coverage is confirmed. 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 - Plan: Evaluate the severity of [...] for various treatments. Has consulted with a managing principal and provided extensive medical records for review. [...] struggling with anemia. She did see a service loss control consultant and additional tests have been run and [...] 11/24/2023 Other Client reports she contacted an privacy attorney to address some of the medical [...] a healthy diet. - Follow up with plan rep as needed. Iron Deficiency Anemia - Plan: - Continue iron supplementation as prescribed by service loss control consultant. - Monitor for any side effects. - Encourage the patient to consume iron-rich foods. - Follow up with service loss control consultant as needed. History of Heart Attack and Headaches - Plan: - Continue monitoring for any cardiac symptoms or recurrence of headaches. - Encourage the patient to maintain a heart-healthy lifestyle. - Follow up with public accountant in June. Anxiety - Plan: - Continue monitoring anxiety levels. - Consider referral to a mental health professional if symptoms worsen or become unmanageable. - Encourage the patient to practice stress-reduction techniques and maintain a healthy lifestyle. Financial Stress - Plan: - Encourage the patient to seek appropriate legal and financial advice. - Offer referral to a social media director or financial counselor if needed. Medication Management [...] irritants such as shampoo or laundry detergent. Engineering Model Maker and flush tester have been consulted twice each. Prednisone was recommended but patient declined due to anxiety concerns. 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 Plan: - Continue follow-up with public accountant as scheduled - Patient to obtain results of recent cardiac tests at next cardiology appointment Disclaimer: This note has been transcribed using speech recognition software and serves as a reflection of the patient's visit. While efforts have been made to ensure accuracy, there may be errors, including best second jobs inaccuracies and misspellings of medication names. This [...] UDT 07/07/2024 Next Appt Details Provider Name:Cesar Rebeca Castro , 12/06/2024 10:45:00 AM, [address], [facility] [address], [place], [address], Insurance Providers Payer Name Payer Address Payer Phone Subscriber Number Group Number Insured Name Patient Relationship to Insured Coverage Start Date Coverage End Date [employer] Medicare Replacement/ Advantage - Hmo [address] [place] [phone] [id number] ALESSIA CHEUNG Self - patient is the insured Medical (General) History Medical History History ICD Code Problems: Benign essential hypertension Chest pain Coronary arteriosclerosis Gastroesophageal reflux disease Generalized anxiety disorder Loss of appetite Mixed hyperlipidemia Moderate recurrent major depression , Surgical History Surgery Date(Month/Year) Tonsilectomy/adenoids 03/01/1960 Removal of gallbladder (30949) 4 Appendectomy (91000) 03/01/2007
--- OUTSIDE RECORDS SUMMARY | 2024-09-27 11:54 | XMS_ITS | Clinical Summary ---
Author Organization [facility] Address [address] [place] [address] Care Team Providers Care Supervisor Tower Name Role Phone Nicola Castaneda DO Primary Care Provider [phone] Allergies Active Allergy Reactions Criticality Noted Date [...] stricture 03/26/2023 Coronary artery disease invo lving hopi coronary artery of hopi heart without angina pectoris 01/14/2023 Benign essential HTN 01/14/2023 Mixed hyperlipidemia 01/14/2023 Chest pain 12/24/2022 Encounters Date Type Department Care Team Description 07/21/2024 11:00 AM CDT Office Visit [facility] on [address] [address] Skyla Riley MD Coronary Artery Disease (6 mo f/u); Hypertension; Lipids 07/21/2024 Travel 07/03/2024 Telephone [facility] Family [facility] Internal Medicine - [address] [address] Nicola Castaneda DO Appointment Request [...] How often do you attend chur or jain services? More than 4 times per year 12/24/2022 Do you belong to any clubs o r organizations such as gnosticist groups, unions, fraternal or athletic groups, or [...] Recorded Patient Health Questionnaire-2 Score 0 03/26/2023 [facility] - [...] place to sleep or slept in a group home (including now)? No 12/24/2022 Comments No Sex [...] 36.8 C (98.3 F) 02/21/2024 10:43 AM [facility] Respiratory Rate 16 03/26/2023 7:40 AM [facility] Oxygen Saturation 97% 07/21/2024 10:48 AM CDT Inhaled Oxygen Concentration - - Weight 44.6 kg (98 lb 6.4 oz) 07/21/2024 10:48 A M CDT Height 161.3 cm (5' 3.5) 07/21/2024 10:48 AM CD T Body Mass Index 17.16 07/21/2024 10:48 AM CDT Plan of Treatment Upcoming Encounters Date Type Department Care Team (Late st Contact Info) Description 03/27/2025 11:00 AM [facility] Office Visit [facility], [address] [id number] Skyla Riley MD [facility]. [address] [address] Health Maintenance Due Date Last Done Comments [...] - 2023-2 5 season) 2023 PHQ-2 (Physician Tanana) 03/01/2024 03/26/2023 [facility] LDL 04/12/2024 04/12/2023, 12/24/2022, [...] from hospital Lifestyle No Ken Nettie L, SPECIAL DELIVERY CARRIER Procedures Procedure Name Priority Date/Time Associated Diagnosis Comments ELECTROCARDIOGRAM (NON MIDMARK ACQUIRED) Routine 07/21/2024 11:01 AM CDT Coronary artery disease involving hopi coronary artery of hopi heart without angina pectoris LIPID PANEL Routine 04/12/2023 MG SCREENING W DEVANG DEBBIE DIGI Routine 03/24/2021 10:46 AM [facility] Encounter for screening mammogram for malignant neoplasm of breast from Last 3 Months or Most Recently Relevant to Health Maintenance Results * ELECTROCARDIOGRAM (07/21/2024 11:01 AM CDT) 07/21/2024 11:0 1 AM CDT Narrative [facility] - 07/21/2024 12:16 PM CDT [facility] Test Date: 2024-07-21 Pat Name: ALESSIA CHEUNG Department: 112 Room: Gender: Female Fuel Manager: : 1950 Requested By: SKYLA RILEY Order Number: [id number] Heather MD: Skyla Riley Measurements Intervals [place] Rate: 66 P: 4 MT: 170 QRS: 66 QRSD: 74 T: 56 QT: 407 QTc: 427 Interpretive Statements SINUS RHYTHM MODERATE VOLTAGE CRITERIA FOR LVH, CONSIDER NORMAL VARIANT Procedure Note Skyla Riley MD - 07/21/2024 [facility], [facility] Test Date: 2024-07-21 Pat Name: ALESSIA CHEUNG Department: 112 Room: Gender: Female Fuel Manager: : 1950 Requested By: SKYLA RILEY Order Number: [id number] Reading MD: Skyla Riley Measurements Intervals [place] Rate: 66 P: 4 MT: 170 QRS: 66 QRSD: 74 T: 56 [...] W DEVANG DEBBIE DIGI (03/24/2021 10:46 AM [facility]) Anatomical Region Laterality Modality Breast Bilateral Mammography 03/24/2021 11:1 3 AM [facility] Impressions 03/24/2021 11:15 AM [facility] ===== IMPRESSION: ===== 1. Stable mammographic appearance with no new findings to suggest malignancy in either breast. 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
--- OUTSIDE RECORDS SUMMARY | 2024-09-27 11:54 | XMS_ITS | Patient Health Record ---
Author Organization [facility] [employer] [place] ([address]) Address [address] [facility] [address] [place] [address] Care Team Providers Care It Application Support Analyst Name Role Phone Nicola Castaneda Primary Care Provider Unavailab Viv Cheung Unavailable [phone] Allergies No Known Allergies Reason For Referral [...] Negative Section Notes: retired from working in [employer], retired from working in [employer], Problems Problem Type SNOMED Code ICD Code Onset Dates Problem Status W/U Status Risk Notes Problem Chronic rhinitis (26206161) Chronic rhinitis (J31.0) Active confirmed Vital Signs Blood pressure diastolic 96 mm Hg 08/30/2024 Oximetry 99 % 08/30/2024 Height 63.5 in 08/30/2024 Blood pressure systolic 156 mm Hg 08/30/2024 Weight 97.0 lbs 08/30/2024 BMI 16.91 kg/m2 08/30/2024 Encounters Encounter Location Date Provider Diagnosis [address] [address] 08/09/2024 Viv Maria M Dermatitis, unspecified L30.9 and Chronic rhinitis J31.[address] [address] 08/30/2024 Viv Maria M Dermatitis, unspecified L30.9 and Chronic rhinitis J31.0 [facility] [address] [place] [address] 08/09/2024 Viv Maria M [facility] [address] [place] [address] 08/14/2024 Viv Franz Assessments Encounter Date Diagnosis [...] Provider Name:Ana pritchett, 10/16/2024 01:30:00 PM, [address], [address], Provider Name:Viv garcia, 10/18/2024 11:00:00 AM, [address], [place], [address], Provider Name:Chidi Gray, 10/19/2024 11:00:00 AM, [address], [place], [address], Insurance Providers Payer Name Payer Address Payer Phone Subscriber Number Group Number Insured Name Patient Relationship to Insured Coverage Start Date Coverage End Date [employer] Ad[employer]age [address] [address] [place] [phone] [id number] Vielka Cheung Self - patient is the insured Medical (General) History Medical History History ICD Code Anxiety Coronary artery disease vertigo Gastro-esophageal reflux disease without esophagitis K21.9 Surgical History Surgery Date(Month/Year) cardiac stents Hospitalization History Reason Date(Month/Year) myocardial infarction
--- OUTSIDE RECORDS SUMMARY | 2024-09-27 11:54 | XMS_ITS | Encounter Summary ---
Author Organization [facility] Address [facility] [place] [address] Care Team Providers Care Dermatology Procedural Physician Name Role Phone Salhoney Calixto Coni DO Primary Care Provider + Nicola Castaneda DO Primary Care Provider [phone] Encounter Details Date Type Department Care Team (Late st Contact Info) Description 04/16/2023 Abstract [facility] [address] Jayy Reynolds MA Social History Tobacco Use [...] often do you attend chur ch or latter-day services? More than 4 times per year 12/24/2022 Do you belong to any clubs o r organizations such as adventism groups, unions, fraternal or athletic groups, or [...] Recorded Patient Health Questionnaire-2 Score 0 03/26/2023 [facility]ational [facility] Questionnaire Answer [...] place to sleep or slept in a half-way (including now)? No 12/24/2022 Comments No Sex [...] st Contact Info) Description 03/27/2025 11:00 AM DEVIL DOG Office Visit [facility] THREE [facility] [place], [address] [place], [place] [phone] Jorge Riley MD Three [facility]. [address] [place], [place] [phone] documented as of this encounter Goals Goal [...] on filedocumented in this encounter Care Teams Dermatology Procedural Physician Relationship Specialty Start Date End Date Calixto García DO [address] [place] [place] [address] PCP - General FAMILY PRACTICE 03/03/23 04/26/23 Nicola Castaneda DO [facility] [address] [address] PCP - General INTERNAL MEDICINE 04/27/23 documented as of this encounter
--- OUTSIDE RECORDS SUMMARY | 2024-09-27 11:54 | XMS_ITS | Clinical Summary ---
Author Organization [facility] Address [address] [place] [address] Care Team Providers Care Screw Eye Assembler Name Role Phone Nicola Castaneda Primary Care [...] hyperlipidemia 01/14/2023 Coronary artery disease invo lving tangirnaq coronary artery of tangirnaq heart without angina pectoris 01/14/2023 Chest pain [...] Comments Blood Pressure 193/87 01/14/2024 12:32 PM SHELL MACHINE OPERATOR Pulse 61 01/14/2024 12:28 PM SHELL MACHINE OPERATOR Temperature 36.7 C (98 F) 01/14/2024 12:28 PM SHELL MACHINE OPERATOR Respiratory Rate 15 01/14/2024 12:28 PM SHELL MACHINE OPERATOR Oxygen Saturation 98% 01/14/2024 12:28 PM SHELL MACHINE OPERATOR Inhaled Oxygen Concentration - - Weight 43.6 kg (96 lb 3.2 oz) 01/14/2024 12:28 P M SHELL MACHINE OPERATOR Height - - Body Mass Index - - Plan of Treatment Upcoming Encounters Date Type Department Care Team (Late st Contact Info) Description 10/03/2024 1:15 PM CDT Office Visit [facility] Oncology and Hematology - Kofi [address] [place] [address] Deshaun Rosa MD [address] [facility] [address] [place] [address] Health Maintenance Due Date Last [...] history exists INFLUENZA VACCINE (#1) 2024 [facility] Care Teams Screw Eye Assembler Relationship Specialty Start Date End Date Nicola Castaneda DO [address] [facility] [address] [place] [address] PCP - General Internal Medicine 01/25/24
[2024-09-27 16:42] LABS: Iron 117 ug/dL (37-170)
[2024-09-27 16:57] LABS: Percent Iron Saturation 36 % (20-50)
[2024-09-27 17:22] LABS: Ferritin 19.10 ng/mL (11.1-264)
== END 2024-09-27 11:30 | disposition home or self-care (01) ==
PROVIDERS: PCP Clinical Nurse Specialist; Visit Provider Internal Medicine Hematology & Oncology
DX: D50.0 Iron deficiency anemia secondary to blood loss (chronic) (principal)
CPT/HCPCS: 36415; 82728; 83540; 83550; 85027

== ENCOUNTER 2024-10-03 13:52 | Outpatient (CLI) | payer OTHER, SELFPAY ==
--- OUTSIDE RECORDS SUMMARY | 2024-10-03 14:00 | XMS_ITS | Clinical Summary ---
Author Organization [facility] Address [address] [place] [address] Care Team Providers Care Batcher Operator Name Role Phone Nicola Castaneda DO Primary Care Provider [phone] Allergies Active Allergy Reactions Criticality Noted Date [...] stricture 03/26/2023 Coronary artery disease invo lving agdaagux coronary artery of agdaagux heart without angina pectoris 01/14/2023 Benign essential HTN 01/14/2023 Mixed hyperlipidemia 01/14/2023 Chest pain 12/24/2022 Encounters Date Type Department Care Team Description 07/21/2024 11:00 AM CDT Office Visit [facility] [address] [address] Skyla Riley MD Coronary Artery Disease (6 mo f/u); Hypertension; Lipids 07/21/2024 Travel 07/03/2024 Telephone [facility] Family & Internal Medicine - [address] [address] Nicola Castaneda DO Appointment Request [...] How often do you attend chur or anabaptism services? More than 4 times per year 12/24/2022 Do you belong to any clubs o r organizations such as druze groups, unions, fraternal or athletic groups, or [...] Recorded Patient Health Questionnaire-2 Score 0 03/26/2023 [facility] - [...] place to sleep or slept in a snf (including now)? No 12/24/2022 Comments No Sex [...] 36.8 C (98.3 F) 02/21/2024 10:43 AM SAND SCREENER Respiratory Rate 16 03/26/2023 7:40 AM SAND SCREENER Oxygen Saturation 97% 07/21/2024 10:48 AM CDT Inhaled Oxygen Concentration - - Weight 44.6 kg (98 lb 6.4 oz) 07/21/2024 10:48 A M CDT Height 161.3 cm (5' 3.5) 07/21/2024 10:48 AM CD T Body Mass Index 17.16 07/21/2024 10:48 AM CDT Plan of Treatment Upcoming Encounters Date Type Department Care Team (Late st Contact Info) Description 03/27/2025 11:00 AM SAND SCREENER Office Visit [facility] THREE [facility], [address] [phone] Skyla Riley MD Three [facility]. [address] [address] Health Maintenance Due Date Last Done Comments [...] - 2023-2 5 season) 2023 PHQ-2 (Physician Dell) 03/01/2024 03/26/2023 ASCVD LDL 04/12/2024 04/12/2023, 12/24/2022, [...] from hospital Lifestyle No Ken Nettie L, NAIL FEEDER Procedures Procedure Name Priority Date/Time Associated Diagnosis Comments ELECTROCARDIOGRAM (NON MIDMARK ACQUIRED) Routine 07/21/2024 11:01 AM CDT Coronary artery disease involving agdaagux coronary artery of agdaagux heart without angina pectoris LIPID PANEL Routine 04/12/2023 MG SCREENING W DEVANG DEBBIE DIGI Routine 03/24/2021 10:46 AM SAND SCREENER Encounter for screening mammogram for malignant neoplasm of breast from Last 3 Months or Most Recently Relevant to Health Maintenance Results * ELECTROCARDIOGRAM (07/21/2024 11:01 AM CDT) 07/21/2024 11:0 1 AM CDT Narrative [facility] - 07/21/2024 12:16 PM CDT [facility] Test Date: 2024-07-21 Pat Name: ALESSIA CHEUNG Department: 112 Room: Gender: Female Director Dietetics Department: : 1950 Requested By: SKYLA RILEY Order Number: [id number] Heather MD: Skyla Riley Measurements Intervals [place] Rate: 66 P: 4 IN: 170 QRS: 66 QRSD: 74 T: 56 QT: 407 QTc: 427 Interpretive Statements SINUS RHYTHM MODERATE VOLTAGE CRITERIA FOR LVH, CONSIDER NORMAL VARIANT Procedure Note Skyla Riley MD - 07/21/2024 [facility] Test Date: 2024-07-21 Pat Name: ALESSIA CHEUNG Department: 112 Room: Gender: Female Director Dietetics Department: : 1950 Requested By: SKYLA RILEY Order Number: [id number] Reading MD: Skyla Riley Measurements Intervals [place] Rate: 66 P: 4 IN: 170 QRS: 66 QRSD: 74 T: 56 [...] W DEVANG DEBBIE DIGI (03/24/2021 10:46 AM SAND SCREENER) Anatomical Region Laterality Modality Breast Bilateral Mammography 03/24/2021 11:1 3 AM SAND SCREENER Impressions 03/24/2021 11:15 AM SAND SCREENER ===== IMPRESSION: ===== 1. Stable mammographic appearance with no new findings to suggest malignancy in either breast. Assessment: ACR BI-RADS 2 - BENIGN FINDING(S) Recommendation: 1:Routine Screening Bilateral Comments: Ordered By: SAM GARCIA Interpreted By: Rangel Puentes MD, 03/24/2021 11:13 AM Narrative 03/24/2021 11:15 AM SAND SCREENER Examination: Digital bilateral screening mammogram with 3D [...] Documents on File Type Date Recorded Patient Traffic Workforce Representative Expl anation Advance Directives and Living Will 04/20/2023 3:40 PM 12/25/22 POA FOR HC * Full Code (Latest Code Status on File) Date Activated Date Inactivated Comments 12/24/2022 3:53 PM 12/25/2022 2:49 PM * Full Code Date Activated Date Inactivated Comments 12/24/2022 11:13 AM 12/24/2022 3:53 PM Care Teams Batcher Operator Relationship Specialty Start Date End Date Nicola Castaneda DO [address] [place] [address] PCP - General INTERNAL MEDICINE 04/27/23
--- OUTSIDE RECORDS SUMMARY | 2024-10-03 14:01 | XMS_ITS | Encounter Summary ---
Author Organization [facility] Address [address] [place] [address] Care Team Providers Care Substance Abuse Prevention Coordinator Name Role Phone Nicola Castaneda Primary Care Provider Reason for Referral * Laboratory Services (Routine) - Open Specialty Diagnoses / Procedures Referred By Contac t Referred To Contact Diagnoses Rash Procedures TRYPTASE Deshaun Rosa MD [address] [address] [place] [phone] Phone: tel: fax: Referral ID Status Reason Start Date Expiration Date Visits Re quested Visits Authorized [id number] Open 10/03/2024 11/03/2025 1 1 * Laboratory Services (Routine) - Open Specialty Diagnoses / Procedures Referred By Contac t Referred To Contact Diagnoses Rash Procedures CHIC2 DELETION, FISH Deshaun Rosa MD [address] [address] [place] [phone] Phone: tel: fax: Referral ID Status Reason Start Date Expiration Date Visits Re quested Visits Authorized [id number] Open 10/03/2024 11/03/2025 1 1 Reason for Visit * Reason Comments Follow Up Encounter Details Date Type Department Care Team (Late st Contact Info) Description 10/03/2024 1:15 PM CDT Office Visit [facility] Oncology and Hematology - Kofi [address] [place] [phone] Deshaun Rosa MD [address] [facility] [address] [place] [address] Rash (Primary Dx) Social History Tobacco Use Types Packs/Day Years Used Date Smoking Tobacco: Former Cigarettes 1 57.6 S tarted: 1967 Smokeless Tobacco: Never Alcohol Use Standard Drinks/Week Comments Never 0 (1 standard drink = 0.6 oz pur e alcohol) Comments Unknown Sex and Gender Information Value Date Recorded Sex Assigned at Not on file Legal Sex Female 9:25 AM CDT Gender Identity Not on file Sexual Orientation Not on file documented as of this encounter Last Filed Vital Signs Vital Sign Reading Time Taken Comments Blood Pressure 165/81 10/03/2024 1:11 PM CDT Pulse 80 10/03/2024 1:08 PM CDT Temperature 36.6 C (97.8 F) 10/03/2024 1:08 PM CDT Respiratory Rate 15 10/03/2024 1:08 PM CDT Oxygen Saturation 97% 10/03/2024 1:08 PM CDT Inhaled Oxygen Concentration - - Weight 45.2 kg (99 lb 9.6 oz) 10/03/2024 1:08 PM CDT Height - - Body Mass Index - - documented in this encounter Progress Notes * Deshaun Rosa MD - 10/03/2024 1:34 PM CDT HEMATOLOGY / ONCOLOGY PROGRESS NOTE Patient Identification: Name: Vielka Cheung Age: 74 y.o. Sex: female : 1950 DIAGNOSIS Iron deficiency anemia CURRENT TREATMENT Oral iron once a day TREATMENT HISTORY EGD was done by Dr. Santamaria on March 2024 showed gastritis. SUBJECTIVE Patient came to the office for follow-up visit. She is feeling good with good energy level. She hasdeveloped with a systemic rash involving the back upper and lower extremities and abdomen and chestwith some itching. Patient developed a rash about 5 months ago and has been seen by the intellectual property manager as well as a key holder. Patient had the skin biopsy done and was told to her that it came back negative. Denies any weight loss. No night sweats and fevers and chills. No other new complaints. Review of system Constitutional: Patient did not mention fevers, sweats, denies tiredness and fatigue, weight and appetite stable HEENT: Patient did not mention sinus congestion, hearing or vision problems Respiratory: Patient did not mention cough, dyspnea, wheeze Cardiovascular: Patient did not mention chest pain, exertional chest pressure/discomfort, nausea, syncope, shortness of breath GI: Patient did not mention constipation, diarrhea, dsyphagia, reflux symptoms, vomiting, melena : Patient did not mention dysuria, frequency, incontinence, urgency Integumentary system: no lymphadenopathy, sweats, flushing Musculoskeletal: Patient not mention: myalgia, arthralgia Neurological: Patient did not mention blurry or disturbed vision, numbness/weakness, dizziness Skin: Generalized macular skin rash almost like urticaria 12 point review of system was reviewed Objective: Vital signs in last 24 hours: As per nursing note Exam: General appearance: alert, cooperative, no distress, appears stated age Head: normocephalic, without obvious abnormality, atraumatic Eyes: conjunctivae/corneas clear, EOM's intact Ears: normal external ear canals AU Nose: Nares normal. Septum midline. Mucosa normal. No drainage or sinus tenderness Throat: Lips, mucosa, and tongue normal. Teeth and gums normal Neck: supple, symmetrical, trachea midline. Lungs: clear to auscultation bilaterally Heart: regular rate and rhythm, S1, S2 normal, no murmur, click, rub or gallop Abdomen: soft, non-tender. Bowel sounds normal. No masses, No organomegaly Extremities: extremities normal, atraumatic, no cyanosis or edema Skin: There is generalized macular rash like urticaria Lymph nodes: No lymphadenopathy Neuro: No obvious focal deficit Exam as above PATH LABS Labs from January 12 showed hemoglobin 12.9 B12 665 iron 125 saturation 32 ferritin 8.5 Labs from March 24 showed hemoglobin 14.5 iron 125 saturation 34 ferritin 13.6 Labs from September 27 showed WBC 8 hemoglobin 13.4 platelet 346,000 iron 117 saturation 36% ferritin 19.1 Assessment: Plan: Patient Active Problem List Diagnosis Date Noted Anxiety 03/26/2023 Esophageal stricture 03/26/2023 GERD (gastroesophageal reflux disease) 03/26/2023 Benign essential HTN 01/14/2023 Mixed hyperlipidemia 01/14/2023 Coronary artery disease involving prairie island coronary artery of prairie [place] heart without angina pectoris 01/14/2023 Chest pain 12/24/2022 Iron deficiency anemia secondary to bleeding after the dental extraction. EGD was done in March 2024 that showed gastritis. Labs showed normal hemoglobin and iron studies. Patient will continue oral iron once a day. Urticarial rash. Patient had skin biopsy done and was told it was negative for malignancy. She has also been seen by intellectual property manager. So far the workup has been unrevealing. 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 I will order serum tryptase as well as PDGF RA mutation. Phone visit in 2 weeks to discuss. Gastritis. Patient is on Protonix. Hypertension. This has been managed by the primary care physician. 10/03/2024 Deshaun Rosa MD documented in this encounter Plan of Treatment Upcoming Encounters Date Type Department Care Team (Late st Contact Info) Description 10/17/2024 4:30 PM CDT Telephone Check Up [facility] Oncology and Hematology - [place]i [address] [facility] [address] [place] [address] Deshaun Rosa MD [address] [facility] [address] [place] [address] Scheduled Orders Name Type Priority Associated Diagnoses Orde r Schedule CHIC2 DELETION, FISH Lab Routine Rash Expected: 10/03/2024, Expires: 10/03/2025 TRYPTASE Lab Routine Rash Expected: 10/03/2024, Expires: 10/03/2025 FLOW CYTOMETRY PANEL Lab Routine Rash Expected: 10/03/2024, Expires: 10/03/2025 documented as of this encounter Visit Diagnoses Diagnosis Rash- Primary Rash and other nonspecific skin eruption documented in this encounter Care Teams Substance Abuse Prevention Coordinator Relationship Specialty Start Date End Date Nicola Castaneda DO [address] [facility] [address] [place] [address] PCP - General Internal Medicine 01/25/24 documented as of this encounter
--- OUTSIDE RECORDS SUMMARY | 2024-10-03 14:01 | XMS_ITS | Clinical Summary ---
Author Organization [facility] Address [address] [place] [address] Care Team Providers Care Helpdesk Analyst Name Role Phone Nicola Castaneda Primary [...] hyperlipidemia 01/14/2023 Coronary artery disease invo lving wilton coronary artery of wilton heart without angina pectoris 01/14/2023 Chest pain 12/24/2022 Encounters Date Type Department Care Team Description 10/03/2024 1:15 PM CDT Office Visit [facility] Oncology and Hematology [facility] [address] [place] [address] Deshaun Rosa MD Rash (Primary Dx) 09/28/2024 Orders Only [facility] Oncology and Hematology [facility] [address] [place] [address] Deshaun Rosa MD 09/13/2024 External Device Data STL ABSTRACTION Provider, [...] 57.6 S tarted: 1968 Smokeless Tobacco: Never Alcohol Use Standard Drinks/Week [...] 10/17/2024 4:30 PM CDT Telephone Check Up [facility] Oncology and Hematology - Kofi [address] [facility] [place] [address] Deshaun Rosa MD [address] [facility] [address] [place] [address] Health Maintenance Due Date Last [...] OSTEOPOROSIS SCREENING 2017 BREAST CANCER SCREENING 03/24/2022 03/24/19 22, 03/24/2021, 09/27/2018, Additional history exists Medicare Advantage ([place]) Preventative Visit/Annual Wellness Visit 03/01/2024 INFLUENZA VACCINE (#1) 2024 Procedures Procedure Name Priority Date/Time Associated Diagnosis Comments IRON, TIBC, AND PERCENT SATURATION Routine 09/27/2024 8:35 AM CDT CBC WITH AUTODIFFERENTIAL Routine 2024 8:04 AM CDT from Last 3 Months Results * IRON, TIBC, AND PERCENT SATURATION (09/27/2024 8:35 AM CDT) Blood us Deshaun Rosa MD CHEMISTRY ORDERABLES Final Resu lt * CBC WITH AUTODIFFERENTIAL (09/27/2024 8:04 AM CDT) Blood us Deshaun Rosa MD HEMATOLOGY ORDERABLES Final Res ult from Last 3 Months Insurance [facility] PPO MCR Care Teams Helpdesk Analyst Relationship Specialty Start Date End Date Nicola Castaneda DO [address] [facility] [address] [place] [phone] PCP - General Internal Medicine 01/25/24
--- OUTSIDE RECORDS SUMMARY | 2024-10-03 14:01 | XMS_ITS | Encounter Summary ---
Author Organization [facility] Address [facility] [place] [address] Care Team Providers Care Process Machine Operator Name Role Phone Salhoney Calixto Coni DO Primary Care Provider + Nicola Castaneda DO Primary Care Provider [phone] Encounter Details Date Type Department Care Team (Late st Contact Info) Description 04/16/2023 Abstract [facility]-[address] [address] Jayy Reynolds MA Social History Tobacco Use [...] often do you attend chur ch or judaism services? More than 4 times per year 12/24/2022 Do you belong to any clubs o r organizations such as anglican groups, unions, fraternal or athletic groups, or [...] Recorded Patient Health Questionnaire-2 Score 0 03/26/2023 [facility] Questionnaire Answer Date Recorded [...] place to sleep or slept in a longterm (including now)? No 12/24/2022 Comments No Sex [...] st Contact Info) Description 03/27/2025 11:00 AM MULTIMEDIA DEVELOPER Office Visit [facility] THREE [facility] [place], [address] [place], [place] [phone] Jorge Riley MD Three [facility] [place]. [address] [place], [place] [phone] documented as of this encounter Goals Goal [...] on filedocumented in this encounter Care Teams Process Machine Operator Relationship Specialty Start Date End Date Calixto García DO [address] [place] [address] PCP - General FAMILY PRACTICE 03/03/23 04/26/23 Nicola Castaneda DO [facility] [address] [address] PCP - General INTERNAL MEDICINE 04/27/23 documented as of this encounter
--- OUTSIDE RECORDS SUMMARY | 2024-10-03 14:01 | XMS_ITS | Patient Health Record ---
Author Organization [facility] [employer] [place] ([address]) Address [address] [facility] [address] [place] [address] Care Team Providers Care Crew Truck Driver Name Role Phone Nicola Castaneda Primary Care Provider Unavailab Viv Cheung Unavailable [phone] Allergies No Known Allergies Reason For Referral [...] Negative Section Notes: retired from working in [employer], retired from working in [employer], Problems Problem Type SNOMED Code ICD Code Onset Dates Problem Status W/U Status Risk Notes Problem Chronic rhinitis (39294092) Chronic rhinitis (J31.0) Active confirmed Vital Signs Blood pressure diastolic 96 mm Hg 08/30/2024 Oximetry 99 % 08/30/2024 Height 63.5 in 08/30/2024 Blood pressure systolic 156 mm Hg 08/30/2024 Weight 97.0 lbs 08/30/2024 BMI 16.91 kg/m2 08/30/2024 Encounters Encounter Location Date Provider Diagnosis [address] [address] 08/09/2024 Viv Maria M Dermatitis, unspecified L30.9 and Chronic rhinitis J31.[address] [address] 08/30/2024 Viv Maria M Dermatitis, unspecified L30.9 and Chronic rhinitis J31.0 [facility] [address] [place] [address] 08/09/2024 Viv Maria M [facility] [address] [place] [address] 08/14/2024 Viv Franz Assessments Encounter Date Diagnosis [...] Provider Name:Ana pritchett, 10/16/2024 01:30:00 PM, [address], [address], Provider Name:Viv garcia, 10/18/2024 11:00:00 AM, [address], [place], [address], Provider Name:Chidi Gray, 10/19/2024 11:00:00 AM, [address], [place], [address], Insurance Providers Payer Name Payer Address Payer Phone Subscriber Number Group Number Insured Name Patient Relationship to Insured Coverage Start Date Coverage End Date [employer] Advantage [address] [address] [place] [phone] [id number] Vielka Cheung Self - patient is the insured Medical (General) History Medical History History ICD Code Anxiety Coronary artery disease vertigo Gastro-esophageal reflux disease without esophagitis K21.9 Surgical History Surgery Date(Month/Year) cardiac stents Hospitalization History Reason Date(Month/Year) myocardial infarction
--- OUTSIDE RECORDS SUMMARY | 2024-10-03 14:01 | XMS_ITS | Encounter Summary ---
Author Organization [facility] Address [address] [place] [address] Care Team Providers Care Multiple Coil Winder Name Role Phone Nicola Castaneda Primary Care Provider Encounter Details Date Type Department Care Team ([facility] Contact Info) Description 09/28/2024 Orders Only [facility] Oncology and Hematology [facility] [address] [place] [address] Deshaun Rosa MD [facility] [address] [place] [address] Social History Tobacco Use Types Packs/Day Years [...] on file documented as of this encounter Plan of Treatment Upcoming Encounters Date Type Department Care Team ([facility] Contact Info) Description 10/17/2024 4:30 PM CDT Telephone Check Up [facility] Oncology and Hematology - [place]of[address] [place] [address] Deshaun Rosa MD [address] [place] [address] documented as of this encounter Procedures Procedure Name Priority Date/Time Associated Diagnosis Comments IRON, TIBC, AND PERCENT SATURATION Routine 09/27/2024 8:35 AM CDT CBC WITH AUTODIFFERENTIAL Routine 2024 8:04 AM CDT documented in this encounter Results * IRON, TIBC, AND PERCENT SATURATION (09/27/2024 8:35 AM CDT) Blood us Deshaun Rosa MD CHEMISTRY ORDERABLES Final Resu lt * CBC WITH AUTODIFFERENTIAL (09/27/2024 8:04 AM CDT) Blood us Deshaun Rosa MD HEMATOLOGY ORDERABLES Final Res ult documented in this encounter Visit Diagnoses Not on filedocumented in this encounter Care Teams Multiple Coil Winder Relationship Specialty Start Date End Date Nicola Castaneda DO [address] [address] PCP - General Internal Medicine 01/25/24 documented as of this encounter
--- NOTE | 2024-10-03 14:41 | CY_PTH ---
PATIENT: Vielka Cheung LOC: [facility]#:[id number] AGE/SX: 74/F ROOM: RE10/03/[address]: Deshaun Rosa MD : 1950 BED: DIS: 10/03/2024 SPEC #: [id number] RECD: 10/04/24 07:25 STATUS: SOUNura REQ #: [id number] KIA: 10/03/24 14:[address]: Deshaun Rosa DEPT: [facility] Cytology RECD BY: Leelee Warner ENTERED: 10/04/24 07:25 SP TYPE: Cytology OTHR DR: Yola Simms APRN Tissues: A - Flow Procedures: Flow Cytometry
== END 2024-10-03 13:53 | disposition home or self-care (01) ==
PROVIDERS: PCP Clinical Nurse Specialist; Visit Provider Internal Medicine Hematology & Oncology
DX: R21 Rash and other nonspecific skin eruption (principal)
CPT/HCPCS: 83520; 88184

== ENCOUNTER 2025-01-05 15:14 | Outpatient (CLI) | payer OTHER, SELFPAY ==
--- NOTE | ~2025-01-05 | XR_ITS ---
EXAMINATION: XR knee RT 3V, 01/05/2025 15:20 IT QUALITY ANALYST HISTORY: Pain in right knee, tripped over gate today and fell COMPARISON: No comparisons available. Findings: Nondisplaced fracture of the mid patella. Moderate joint effusion. Soft tissues unremarkable. Impression: Patellar fracture Reviewed, dictated and finalized at location P. QUALITY ANALYST Impression: Patellar fracture
== END 2025-01-05 15:15 | disposition home or self-care (01) ==
DX: S82.091A Other fracture of right patella, initial encounter for closed fracture (principal); W01.0XXA Fall on same level from slipping, tripping and stumbling without subsequent striking against object, initial encounter
CPT/HCPCS: 73562